=== PATIENT | female | born 1935 | race Caucasian/White ===

== ENCOUNTER 2017-05-23 23:57 | Inpatient (IN) | payer OTHER ==
[~2017-05-23] VITALS: Ht 157.5 cm; Wt 60.0 kg
[~2017-05-23 23:57] MED LIST: ASPCH81X PO; BUME1TAB PO; CARV6.252 PO; GLIP2.5T11 PO; HYDR100T12 PO; ISOS60TA PO; LORA10TA51 PO; SIMV20TA5 PO; TAMO20TA9 PO
[2017-05-24] VITALS (25 sets, daily range): BP systolic 135–165; BP diastolic 62–76; PULSE 72–85; TEMP 36.5–36.7; O2SAT 93–99; Ht 157.5 cm; Wt 60.0 kg
[2017-05-24] MEDS ORDERED: ALBUT/IPRATROP 3MG/0.5MG NEB 3 ML VIAL INH STA (00:05)
--- NOTE | 2017-05-24 00:10 | EMERGENCY ROOM VISIT NOTE ---
History Report prepared by Zac: Monisha Liz Under the Supervision of: Dr. Franky Lantigua M.D. First contact with patient: 00:00 Chief Complaint: SHORTNESS OF BREATH Stated Complaint: SHORTNESS OF BREATH History of Present Illness The patient is a 81 year old female who presents to the Emergency Room with complaints of sudden shortness of breath beginning this afternoon. She denies feeling tightness in her chest. The patient denies having chest pain, nausea, and vomiting. She also denies having leg swelling. The patient denies a history of COPD and CHF. The patient reports a history of breast cancer 5 years, but states that she does not have a port and is not on chemotherapy. Per her family , the patient had a heart attack 5 years and also had pneumonia then but has been getting pneumonia shots since. Source of History: patient, family Onset: this afternoon Position: other (global) Quality: other (shortness of breath ) Timing: other (sudden) Associated Symptoms: No chest pain, No nausea, No vomiting Note: also denies having leg swelling Review of Systems See HPI for pertinent positives & negatives. A total of 10 systems reviewed and were otherwise negative. Past Medical & Surgical Medical Problems: (1) Acute respiratory failure (2) Chronic Kidney Disease, Stage Iii (Moderate) (3) Congestive Heart Failure Nos (4) Diab Nia Wo Compl, Type Ii Or Unspec Type, Not Uncntrld (5) Diab W Renal Manifest, Type Ii Or Unspec Type, Not Uncntrld (6) Hyperlipidemia Nec/Nos (7) Hypertension Nos (8) Pneumonia Family History No pertinent family history stated. Social History Smoking Status: Never Smoker Marital Status: Housing Status: lives with significant other Current/Historical Medications Scheduled Aspirin (Aspirin Chewable), 81 MG PO DAILY B-Complex W/ C-Min-Fe & Folic (Ferrocite Plus), 324 MG PO DAILY Bumetanide (Bumex), 1 MG PO DAILY Calcitriol (Rocaltrol Cap), 0.25 MCG PO 3XWK Carvedilol (Coreg), 6.25 MG PO BID Cholecalciferol (Vitamin D3), 1,000 UNITS PO DAILY Glipizide (Glucotrol Xl), 2.5 MG PO DAILY Hydralazine Hcl (Apresoline), 100 MG PO TID Isosorbide Mononitrate (Imdur), 60 MG PO DAILY Simvastatin (Zocor), 20 MG PO HS Scheduled PRN Loratadine (Claritin), 10 MG PO DAILY PRN for ALLERGIC REACTION Allergies Coded Allergies: No Known Allergies (Verified , 08/28/07) Physical Exam Vital Signs Date Time Temp Pulse Resp B/P (MAP) Pulse Ox O2 Delivery O2 Flow Rate FiO2 05/24/17 03:06 82 24 93 Nasal Cannula 3.0 05/24/17 03:01 146/68 05/24/17 02:50 81 24 93 Nasal Cannula 3.0 05/24/17 02:31 145/65 05/24/17 02:20 80 18 93 Nasal Cannula 3.0 05/24/17 02:04 143/59 05/24/17 02:02 77 16 94 Nasal Cannula 3.0 05/24/17 02:01 143/59 05/24/17 01:50 79 22 92 Nasal Cannula 3.0 05/24/17 01:31 139/59 05/24/17 01:20 76 20 91 Nasal Cannula 3.0 05/24/17 01:15 77 24 90 Nasal Cannula 3.0 05/24/17 01:02 153/72 05/24/17 00:47 93 Nasal Cannula 3.0 05/24/17 00:47 93 Nasal Cannula 3.0 05/24/17 00:45 76 91 Nasal Cannula 3.0 05/24/17 00:37 93 Nasal Cannula 3.0 05/24/17 00:35 89 Room Air 05/23/17 23:57 36.4 80 21 159/76 93 Room Air 05/23/17 23:57 93 Room Air Physical Exam GENERAL: Patient is unwell appearing and in moderate distress. HEENT: No acute trauma, normocephalic atraumatic, mucous membranes moist, no nasal congestion, no scleral icterus. Cataract to right eye. NECK: No stridor, no adenopathy, no meningismus, trachea is midline. LUNGS: Tight, coarse breath sounds with rhonchi throughout. Mild wheezing. Dyspneic. Mildly tachypneic. HEART: Regular rate and rhythm. No murmurs, rubs, gallops appreciated. ABDOMEN: Soft, nontender, bowel sounds positive, no masses appreciated, no peritonitis. BACK: No midline tenderness, no CVA tenderness EXTREMITIES: Normal motion all extremities, no cyanosis, no edema. NEUROLOGIC: Alert and oriented, no acute motor or sensory deficits, no focal weakness, cranial nerves grossly intact. SKIN: No rash, no jaundice, no diaphoresis. Medical Decision & Procedures ER Provider Diagnostic Interpretation: X ray results are stated below per my interpretation and the radiologist's interpretation. Chest X-Ray 1 view: Diffuse patchy infiltration throughout with a large infiltrate over the right upper lung fernandez. No effusion. Normal cardiac size. Laboratory Results Test 05/24/17 01:10 05/24/17 01:20 05/24/17 02:03 05/24/17 03:00 Pro-B-Type Natriuretic Peptide > 17928 pg/ml (0-1800) Beta-Hydroxybutyric Acid 1.42 mg/dL (0.2-2.81) Bedside Lactic Acid Venous 1.53 mmol/L (0.90-1.70) Arterial Blood pH 7.42 (7.35-7.45) Arterial Blood Partial Pressure CO2 37 mmHg (35-46) Arterial Blood Partial Pressure O2 83 mm/Hg (80-95) Arterial Blood HCO3 23 mmol/L (19-24) Arterial Blood Oxygen Saturation 93.7 % (90-95) Arterial Blood Base Excess -1.0 mEq/L (-9-1.8) Arterial Blood Gas Delivery 3.5 L Ezekiel Test POS (POS) Urine Color YELLOW Urine Appearance CLOUDY (CLEAR) Urine pH 5.0 (4.5-7.5) Urine Specific [place] 1.025 (1.000-1.030) Urine Protein 1+ (NEG) Urine Glucose (UA) NEG (NEG) Urine Ketones NEG (NEG) Urine Occult Blood NEG (NEG) Urine Nitrite NEG (NEG) Urine Bilirubin NEG (NEG) Urine Urobilinogen NEG (NEG) Urine Leukocyte Esterase SMALL (NEG) Urine Osmolality 394 mOms/kg (500-800) Urine Random Sodium 11 mEq/L Laboratory results as reviewed by me. Medications Administered Medications (Trade) Dose Ordered Sig/Orestes Route Start Time Stop Time Status Last Admin Dose Admin Albuterol/ Ipratropium (Duoneb) 3 ml NOW STAT INH 05/24/17 00:05 05/24/17 00:07 DC 05/24/17 00:44 3 ML Piperacillin Sod/ Tazobactam Sod (Zosyn Iv) 4.5 gm NOW STAT IV 05/24/17 00:21 05/24/17 00:22 DC 05/24/17 01:07 4.5 GM Levofloxacin (Levaquin / D5W) 750 mg NOW ONCE IV 05/24/17 00:30 05/24/17 00:31 DC 05/24/17 01:28 750 MG Methylprednisolone Sodium Succinate (Solu-Medrol IV) 125 mg NOW STAT IV 05/24/17 01:34 05/24/17 01:35 DC 05/24/17 01:49 125 MG Albuterol/ Ipratropium (Duoneb) 12 ml ONE ONCE INH 05/24/17 02:00 05/24/17 02:01 DC 05/24/17 02:00 12 ML Insulin Human Regular (novoLIN-R U-100 PER UNIT) 6 units NOW STAT SC 05/24/17 02:03 05/24/17 02:04 DC 05/24/17 02:11 6 UNITS Insulin Glargine (Lantus Solostar Pen) 5 units BID SC 05/24/17 03:00 05/24/17 12:15 DC 05/24/17 07:31 5 UNITS Acetaminophen (Tylenol Tab) 650 mg TODAY@0300 PO 05/24/17 03:00 05/24/17 08:00 DC 05/24/17 06:12 650 MG ECG Indication: SOB/dyspnea Rate (beats per minute): 76 Rhythm: sinus rhythm Findings: LBBB (similar to ECG in 2014), no acute ischemic change Change: no significant change (from 2014) ED Course 0001: The patient was evaluated in room A10. A complete history and physical exam was performed. 0005: Ordered DuoNeb 3 ml INH. 0021: Ordered Zosyn Iv 4.5 gm IV. 0028:I checked on the patient and she is breathing better on the DuoNeb. The patient reports a history of smoking, but does not smoke anymore. I informed the patient and her family of the chest X-ray findings and that I plan to admit her. 0030: Ordered Levofloxacin 750 mg IV. 0134: Ordered Methylprednisolone Sodium Succinate 125 mg IV. 0150: I checked on the patient and she is still having continued wheezing. 0200: Ordered Duoneb 12 ml INH. 0203: Ordered Insulin Human Regular 6 units SC. 0207: Discussed the patient's case with Dr. Og. The patient will be evaluated for further treatment and disposition. 0210: Upon reevaluation, the patient is resting. Discussed results and treatment plan with the patient. She verbalized understanding and agreement with the treatment plan. The patient will be evaluated for further management. 0250: I checked on the patient. She is comfortable on the DuoNeb right now. Medical Decision Differential: Infectious, Reactive Airway Disease, Pneumonia, Pneumothorax, COPD , CHF, ACS, Pulmonary Embolism, MSK, GI, Dissection, amongst other etiologies entertained. 81 yr old female arrives acutely ill with respiratory distress. Mild hypoxia with very poor lung exam. History of smoking thus with some wheezing went ahead with duoneb which increased wheezing and opened up lungs some. Thus hour long neb with IV steroids started. CXR with large infiltrate RUL as well as what appears to be either Pulm Edema vs diffuse infiltrative disease. Given broad spectrum for pneumonia. CXR findings very much appear to be consistent with edema/chf, as does her elevated BNP, but with acute renal failure, no leg swelling/jvd I feel holding on some IV lasix reasonable. After 2 hours duoneb an ABG obtained which was essentially normal thus I feel that putting on bipap at this time not yet indicated. She is doing quite well with continuous neb and breathing much more comfortably. Labs remarkable for elevated BG for which subq insulin given. Moderate hyponatremia of likely infectious, fluid overload and somewhat bsg elevation as cause. Clearly giving IV fluids for this would compound issues further. No clear evidence this is ACS as ekg without STEMI and moderately elevated trop seems to be her baseline and would go with renal failure. She will be brought in to hospitalist service for further treatment and evaluation. Medication Reconcilliation Current Medication List: was personally reviewed by ok Blood Pressure Screening Patient's blood pressure: Elevated blood pressure will be monitored by the hospitalist Consults Time Called: 0140 Consulting Physician: Dr. Fay Returned Call: 020 Discussed the patient's case. The patient will be evaluated for further treatment and disposition. Impression Primary Impression: Pneumonia Additional Impressions: Respiratory distress Hyponatremia Hyperglycemia Renal failure Critical Care I have personally spent greater than 35 minutes of critical care time in the direct management of this patient. This was a life/limb threatening event. This includes time spent evaluating patient, direct bedside care, chart review, placing orders, interpretation of diagnostic studies, discussion with consultants, patient, and family members, as well as other required patient management activities. This 35 minutes is in excess of all separately billable procedures. Scribe Attestation The scribe's documentation has been prepared under my direction and personally reviewed by me in its entirety. I confirm that the note above accurately reflects all work, treatment, procedures, and medical decision making performed by me. Departure Information Dispostion Being Evaluated By Hospitalist Los Tamayo M.D. (PCP) Patient Instructions My [facility] Problem Qualifiers
[2017-05-24] MEDS ORDERED: PIPERACILLIN/TAZOBACTAM 4.5 GM/100ML D5W IV STA (00:21)
[2017-05-24] MEDS ORDERED: LEVAQUIN 750MG / 150ML D5W IV ONE (00:30)
[2017-05-24] MEDS ORDERED: B COTAB PO (01:19)
[2017-05-24] MEDS ORDERED: CHOL1000 PO (01:21)
[2017-05-24] MEDS ORDERED: GLIP1TAB60 PO (01:22)
[2017-05-24] MEDS ORDERED: CALC0.2510 PO (01:25)
[2017-05-24 01:34] LABS: HEMATOCRIT 22.6 % (37-47); MEAN CELL VOLUME 93.8 fL (80-100); MEAN CORPUSCULAR HGB CONC 34.1 g/dl (32-36); MEAN PLATELET VOLUME 10.8 fL (7.4-10.4); PLATELET COUNT 238 K/uL (130-400); RED BLOOD COUNT 2.41 M/uL (4.2-5.4); WHITE BLOOD COUNT 18.46 K/uL (4.8-10.8)
[2017-05-24] MEDS ORDERED: METHYLPREDNISOLONE 125 MG VIAL IV STA (01:34)
[2017-05-24 01:54] LABS: BLOOD UREA NITROGEN 51 mg/dl (7-18); BUN/CREATININE RATIO 20.9 (10-20); CALCIUM 8.3 mg/dl (8.5-10.1); CARBON DIOXIDE 23 mmol/L (21-32); CHLORIDE 92 mmol/L (98-107); CREATININE 2.43 mg/dl (0.60-1.20); GLUCOSE 361 mg/dl (70-99); SODIUM 126 mmol/L (136-145)
[2017-05-24 01:59] LABS: CKMB/CK RATIO 5.7 (0-3.0)
[2017-05-24] MEDS ORDERED: ALBUT/IPRATROP 3MG/0.5MG NEB 3 ML VIAL INH ONE (02:00)
[2017-05-24] MEDS ORDERED: NovoLIN-R INSULIN PER UNIT CHARGE SC STA (02:03)
[2017-05-24 02:06] LABS: BETA-HYDROXYBUTYRATE 1.42 mg/dL (0.2-2.81)
[2017-05-24 02:09] LABS: BASO % 0.1 %; BASO ABS # 0.01 K/uL (0-0.2); COMPLETE YES; IG% 0.7 %; LYMPH % 2.4 %; LYMPH ABS # 0.44 K/uL (1.2-3.4); MONO % 3.4 %; NEUT % 93.4 %
[2017-05-24 02:34] LABS: ARTERIAL BLD GAS O2 SATURATION 93.7 % (90-95); ARTERIAL BLOOD GAS HCO3 23 mmol/L (19-24); ARTERIAL BLOOD GAS PO2 83 mm/Hg (80-95); ARTERIAL BLOOD GAS pH 7.42 (7.35-7.45)
[2017-05-24 02:35] LABS: ALLEN TEST POS (POS); O2 ADMINISTRATION 3.5 L
[2017-05-24] MEDS ORDERED: ALUMINUM/MAGNESIUM/SIMETH (MAALOX MAX) 30 ML UDC PO PRN (03:00)
[2017-05-24] MEDS ORDERED: ACETAMINOPHEN 325 MG TAB PO SCH (03:00)
[2017-05-24] MEDS ORDERED: MAGNESIUM HYDROXIDE SUSP 30 ML UDC PO PRN (03:00)
[2017-05-24] MEDS ORDERED: NITROGLYCERIN 0.4 MG SL PER TAB CHARGE SL PRN (03:00)
[2017-05-24] MEDS ORDERED: ONDANSETRON INJ 2 MG/ML 2 ML VIAL IV PRN (03:00)
[2017-05-24] MEDS ORDERED: LORATADINE 10 MG TAB PO PRN (03:00)
[2017-05-24] MEDS ORDERED: CEFEPIME IV 2,000 MG in DEXTROSE 5% 100ML 100 ML IV SCH (03:00)
[2017-05-24] MEDS ORDERED: ACETAMINOPHEN 325 MG TAB PO PRN (03:00)
[2017-05-24] MEDS ORDERED: ALBUT/IPRATROP 3MG/0.5MG NEB 3 ML VIAL INH PRN (03:15)
[2017-05-24] MEDS ORDERED: GLUCAGON FOR INJ 1 MG VIAL SQ PRN (03:45)
[2017-05-24] MEDS ORDERED: DEXTROSE 50% 50 ML SYR IV PRN (03:45)
[2017-05-24] MEDS ORDERED: GLUCOSE 40% GEL 15 GM TUBE PO PRN (03:45)
[2017-05-24] MEDS ORDERED: GLUCOSE 10 TABS/TUBE PO PRN (03:45)
[2017-05-24 04:02] LABS: URINE APPEARANCE CLOUDY (CLEAR); URINE BILIRUBIN NEG (NEG); URINE NITRITE NEG (NEG); URINE SPECIFIC GRAVITY 1.025 (1.000-1.030); UROBILINOGEN NEG (NEG)
[2017-05-24 04:04] LABS: MANUAL MICROSCOPIC REQUIRED? NO; REVIEW REQ? NO; URINE COLOR YELLOW; ZZUR CULT IF INDIC CLEAN CATCH YES
[2017-05-24] MEDS ORDERED: CEFEPIME CONSULT ACTIVE PRN ×2 (04:30)
[2017-05-24 04:56] LABS: FERRITIN 1418.4 ng/ml (8.0-388.0)
[2017-05-24] MEDS ORDERED: LEVOFLOXACIN CONSULT ACTIVE PRN (05:00)
[2017-05-24 05:01] LABS: INFLUENZA A PCR Neg for Influ A (NEG); INFLUENZA B PCR Neg for Influ B (NEG)
[2017-05-24] MEDS: INSULIN GLARGINE SOLOSTAR 100 UNITS/ML 3 ML PEN SC SCH ×3 (05:24→20:34)
[2017-05-24] MEDS: CEFEPIME IV 2,000 MG in SYRINGE 7.5 ML IV SCH (05:28)
[2017-05-24] MEDS ORDERED: HEPARIN SOD 5000 UNIT/0.5 ML CARP SQ SCH (06:00)
[2017-05-24 06:23] LABS: ESTIMATED AVERAGE GLUCOSE 123 mg/dl; HA1C FLAG Normal (Normal)
[2017-05-24 06:25] LABS: HEMATOCRIT 22.3 % (37-47); MEAN CELL VOLUME 92.5 fL (80-100); MEAN CORPUSCULAR HEMOGLOBIN 31.1 pg (25-34); MEAN CORPUSCULAR HGB CONC 33.6 g/dl (32-36); MEAN PLATELET VOLUME 10.5 fL (7.4-10.4); PLATELET COUNT 233 K/uL (130-400); RED BLOOD COUNT 2.41 M/uL (4.2-5.4); WHITE BLOOD COUNT 16.36 K/uL (4.8-10.8)
--- NOTE | 2017-05-24 06:28 | HISTORY & PHYSICAL EXAMINATION ---
DATE OF ADMISSION: 05/24/2017 CHIEF COMPLAINT: Shortness of breath. HISTORY OF PRESENT ILLNESS: This is a 81-year-old female with past medical history significant for hyperlipidemia, nonischemic cardiomyopathy, peripheral artery disease, breast cancer, type 2 diabetes, anemia of chronic kidney disease, chronic kidney disease stage IV, hypertension, right eye blindness, was brought in with acute shortness of breath. The patient lives with her daughter. She was having some cough since yesterday bringing up some yellowish white phlegm, but today she complained of shortness of breath that progressively worsened later in night. She complained that she could not breathe and her chest hurts while breathing so she was brought into the hospital. In the ER, she required 3 litres of oxygen to keep her saturation above 90, afebrile, blood pressure is stable. Chest x-ray showed diffuse congestion versus infiltrate. The patient is very hard to hear. The patient lives with daughter. As per daughter, the patient was otherwise doing okay. She is ambulates in the house fine and she can climb the steps and down without any difficulty. No recent fever or chills. No complaints of headaches or blurred vision. No nausea, no vomiting, no abdominal pain. She had 1 episode of diarrhea on Sunday. Appetite is okay. Did not eat much today. No swelling in the legs. Currently, seems somewhat comfortable. ALLERGIES: No known drug allergies. PAST MEDICAL HISTORY: As mentioned above. PAST SURGICAL HISTORY: Left breast biopsy, cataract surgery, colonoscopy with biopsy, cystoscopy, left partial mastectomy. MEDICATIONS: Currently the patient is on Coreg 6.25 one mg p.o. b.i.d., Percocet 325 mg p.o. daily, hydralazine 100 mg p.o. t.i.d., lovastatin 20 mg p.o. daily, vitamin D 1000 units p.o. daily, glipizide XL 2.5 mg p.o. daily, Bumex 1 mg p.o. daily, calcitriol 0.5 mg p.o. daily on Sunday, Sunday and Sunday, Imdur 60 mg p.o. daily, aspirin 81 mg p.o. daily. FAMILY HISTORY: Significant for mother had cancer. Father had heart disorder. SOCIAL HISTORY: Former smoker, quit in 2006. Prior to that smoked for 50 years. No alcohol use. No drug use. Currently lives with her daughter. REVIEW OF SYMPTOMS: As per HPI. Rest of review of systems negative. PHYSICAL EXAMINATION: GENERAL: The patient is old and frail, somewhat mild respiratory distress. VITAL SIGNS: Temperature 36.4, pulse 77, respiratory rate 24, oxygen 92% on 3 liters. HEENT: No pallor, no icterus. Right eye blind. NECK: No JVD, no neck masses, no carotid bruits. CARDIOVASCULAR: S1, S2 heard. Regular rate and rhythm. No murmurs appreciated. RESPIRATORY SYSTEM: Bilateral rhonchi heard and bilateral wheezing heard. ABDOMEN: Soft, bowel sounds present. Nontender. No distention. No guarding or rigidity. CENTRAL NERVOUS SYSTEM: Cranial nerves II-XII grossly intact. Nonfocal. EXTREMITIES: Trace pedal edema present. No erythema seen. LABORATORIES: Sodium 126, potassium 4, chloride 92, bicarbonate 23, BUN 51, creatinine 2.4, serum glucose 361, point of care lactic acid 1.5, calcium 8.3, total creatinine kinase 98. Troponin was 0.17. BNP greater than 35,000. Beta hydroxybutyrate acid 1.42. WBC 18.4, hemoglobin 7.7, hematocrit 38. Blood gas pH 7.48, pCO2 37, pO2 83, bicarbonate 23, oxygen 93% on 3.5 liters. Chest x-ray bilateral diffuse infiltrates EKG: Sinus rhythm with rate of 60 with left bundle branch block. No significant change from previous EKG. ASSESSMENT AND PLAN: This is a 81-year-old female who presents with acute shortness of breath. 1. Acute respiratory failure with leukocytosis, cough and bilateral infiltrates on chest x-ray, most likely secondary to pneumonia, could be also underlying congestive heart failure. We will place him on IV Levaquin and IV cefepime. Will follow the cultures. We will follow the sputum sample. We will follow MRSA swab. We follow the CT scan of the chest and if any concern, we will consult pulmonary for a bronchoscopy. Close monitor in tele floor. [facility] 2. Possible acute congestive heart failure. The patient has history of CHF, in November 2011 she had hypoxic respiratory failure requiring intubation. At that time, EF was only 15% but again repeat echo in October 2015 showed a normal EF with grade 1 diastolic dysfunction. Since the chest x-ray shows possible underlying congestive heart failure, we will get a CT scan to get a clear picture. Hold the home Bumex for renal failure, possible sepsis, possible pneumonia. We will follow echocardiogram and cardiology consult for further recommendations. 3. Mild elevation of troponin, most likely secondary to acute renal failure. The patient denies any chest pain. We will follow the echocardiogram and serial cardiac enzymes. 4. Acute renal failure and chronic kidney disease stage IV. Baseline creatinine around 2, presents with creatinine of 2.4. Hold the Bumex. Follow the labs in a.m. Consult nephrology for further recommendations for any diuretics. 5. Hyponatremia with sodium of 126. Checking the sodium osmolality, urine osmolality and urine sodium, repeat the labs, holding the diuretics and fluids. Further recommendation as per nephrology and based on repeat labs. 6. Diabetes with hyperglycemia with sugar of 361. Got 6 units of IV regular insulin in the ER. Follow HbA1c level. Hold the glipizide. To start on Lantus 5 units b.i.d. and insulin sliding scale. We will closely monitor the blood sugars. 7. Acute on chronic anemia of chronic kidney disease. Hemoglobin baseline between 8 to 9. Presents with hemoglobin of 7.7. N signs of bleeding We will give 2 units of PRBC slowly, follow the iron studies and vitamin B12 and folic acid studies and stool for Hemoccult. 10. Hyperlipidemia. Continue statin. 11. Hypertension. Continue Coreg, hydralazine and Imdur. We will monitor the blood pressure. 12. Peripheral vascular disease, continue aspirin. 13. Deep venous thrombosis prophylaxis. Heparin subQ. DISPOSITION: Admit to tele floor. Expect to discharge home and follow with his family doctor. PT and OT prior to discharge. Social Service to help with discharge planning. Level 1 full code. MTDD
[2017-05-24 06:42] LABS: INR 1.2 (0.9-1.1); PROTHROMBIN TIME (PATIENT) 12.8 SECONDS (9.0-12.0)
[2017-05-24 06:55] LABS: BUN/CREATININE RATIO 22.2 (10-20); CALCIUM 8.4 mg/dl (8.5-10.1); CREATININE 2.25 mg/dl (0.60-1.20); MAGNESIUM 2.6 mg/dl (1.8-2.4); POTASSIUM 3.9 mmol/L (3.5-5.1)
--- NOTE | 2017-05-24 07:12 | DIAGNOSTIC IMAGING REPORT ---
CHEST ONE VIEW PORTABLE CLINICAL HISTORY: Shortness of breath. COMPARISON STUDY: Chest radiograph November 28, 2011. FINDINGS: There is no pneumothorax. There is a suspected small left pleural effusion with possible trace right pleural effusion. Moderate cardiomegaly is noted. There is diffuse interstitial thickening with dense bilateral upper lung airspace opacities which are relatively symmetric. There is also mild left lower lung airspace opacity. IMPRESSION: 1. Interstitial thickening with dense relatively symmetric bilateral upper lung airspace opacities. The findings favor alveolar pulmonary edema. However, bilateral pneumonia could appear similar. Radiographic follow up is recommended. 2. Suspected small left and trace right pleural effusions. Electronically signed by: Elias Ferrell M.D. 05/24/2017 7:10 AM Dictated Date/Time: 05/24/2017 7:06 AM
[2017-05-24 07:24] LABS: BASO % 0.1 %; BASO ABS # 0.01 K/uL (0-0.2); COMPLETE YES; IG% 0.6 %; LYMPH % 2.1 %; LYMPH ABS # 0.35 K/uL (1.2-3.4); MONO % 2.2 %
[2017-05-24] MEDS: CARVEDILOL 6.25 MG TAB PO SCH ×2 (07:28→20:30)
[2017-05-24] MEDS: CHOLECALCIFEROL 1000 INTER.UNIT TAB PO SCH (07:28)
[2017-05-24] MEDS: ISOSORBIDE MONONITRATE 60 MG TABCR PO SCH (07:28)
[2017-05-24] MEDS: INSULIN ASPART 100 UNITS/ML 3 ML PEN SC SCH ×4 (07:30→20:34)
[2017-05-24] MEDS ORDERED: LEVALBUTEROL/IPRATROPIUM NEB INH SCH (08:30)
[2017-05-24] MEDS ORDERED: NURSING VERBAL MED ORDER ONE ×2 (08:30→15:15)
--- NOTE | 2017-05-24 08:42 | Progress Note ---
Medicine Progress Note Date & Time of Visit: May 24, 2017 at 08:31. Subjective resting in bed, not in distress, appears weak but alert, oriented states her breathing has improved compared to yesterday still has coarse cough, with yellow sputum denies chest pain, dizziness, palpitations, headache denies other symptoms Objective Last 8 Hrs Date Time Temp Pulse Resp B/P (MAP) Pulse Ox O2 Delivery O2 Flow Rate FiO2 05/24/17 08:22 36.6 78 18 148/64 93 4.0 05/24/17 08:16 36.7 79 28 153/65 (94) 99 5.0 05/24/17 08:06 36.6 79 18 149/63 93 4.0 05/24/17 07:24 36.7 81 20 136/62 98 4.0 05/24/17 06:45 36.7 78 20 162/68 97 5.0 05/24/17 06:30 36.7 77 22 159/71 97 5.0 05/24/17 06:23 36.7 82 22 163/66 96 5.0 05/24/17 04:23 36.7 85 18 148/67 95 Mask 4.0 05/24/17 03:36 80 26 93 Nasal Cannula 3.0 05/24/17 03:31 155/77 05/24/17 03:06 82 24 93 Nasal Cannula 3.0 05/24/17 03:01 146/68 05/24/17 02:50 81 24 93 Nasal Cannula 3.0 05/24/17 02:31 145/65 05/24/17 02:20 80 18 93 Nasal Cannula 3.0 05/24/17 02:04 143/59 05/24/17 02:02 77 16 94 Nasal Cannula 3.0 05/24/17 02:01 143/59 05/24/17 01:50 79 22 92 Nasal Cannula 3.0 05/24/17 01:31 139/59 05/24/17 01:20 76 20 91 Nasal Cannula 3.0 05/24/17 01:15 77 24 90 Nasal Cannula 3.0 05/24/17 01:02 153/72 05/24/17 00:47 93 Nasal Cannula 3.0 05/24/17 00:47 93 Nasal Cannula 3.0 05/24/17 00:45 76 91 Nasal Cannula 3.0 05/24/17 00:37 93 Nasal Cannula 3.0 05/24/17 00:35 89 Room Air Physical Exam: General- oriented x 3, not in distress, speaks in sentences with no effort Head- atraumatic Eyes- PERRL, EOMI, anicteric ENT- oropharynx clear Neck- supple, (+) JVD, no adenopathy, no thyromegaly Lungs- (+) crackles bilaterally Heart- regular rhythm; no murmur, normal rate Abdomen- normal bowel sounds, soft, nontender Extremities- no pretibial edema, no calf tenderness; peripheral pulses intact Neuro- alert, oriented x 3; PERRL, EOMI; no facial palsy; no dysarthria; motor 5 /5 bilaterally; sensation 100%, no other gross focal deficits Skin- warm & dry Laboratory Results: Last 24 Hours Test 05/24/17 01:10 05/24/17 01:20 05/24/17 02:03 05/24/17 03:00 White Blood Count 18.46 K/uL Red Blood Count 2.41 M/uL Hemoglobin 7.7 g/dL Hematocrit 22.6 % Mean Corpuscular Volume 93.8 fL Mean Corpuscular Hemoglobin 32.0 pg Mean Corpuscular Hemoglobin Concent 34.1 g/dl Platelet Count 238 K/uL Mean Platelet Volume 10.8 fL Neutrophils (%) (Auto) 93.4 % Lymphocytes (%) (Auto) 2.4 % Monocytes (%) (Auto) 3.4 % Eosinophils (%) (Auto) 0.0 % Basophils (%) (Auto) 0.1 % Neutrophils # (Auto) 17.25 K/uL Lymphocytes # (Auto) 0.44 K/uL Monocytes # (Auto) 0.63 K/uL Eosinophils # (Auto) 0.00 K/uL Basophils # (Auto) 0.01 K/uL RDW Standard Deviation 42.3 fL RDW Coefficient of Variation 12.3 % Immature Granulocyte % (Auto) 0.7 % Immature Granulocyte # (Auto) 0.13 K/uL Red Blood Cell Morphology Unremarkable Sodium Level 126 mmol/L Potassium Level 4.0 mmol/L Chloride Level 92 mmol/L Carbon Dioxide Level 23 mmol/L Anion Gap 11.0 mmol/L Blood Urea Nitrogen 51 mg/dl Creatinine 2.43 mg/dl Est Creatinine Clear Calc Drug Dose 16.5 ml/min Estimated GFR () 21.2 Estimated GFR (Non- 18.3 BUN/Creatinine Ratio 20.9 Random Glucose 361 mg/dl Calcium Level 8.3 mg/dl Total Creatine Kinase 98 U/L Creatine Kinase MB 5.6 ng/ml Creatine Kinase MB Ratio 5.7 Troponin I 0.172 ng/ml Pro-B-Type Natriuretic Peptide > 57213 pg/ml Beta-Hydroxybutyric Acid 1.42 mg/dL Bedside Lactic Acid Venous 1.53 mmol/L Arterial Blood pH 7.42 Arterial Blood Partial Pressure CO2 37 mmHg Arterial Blood Partial Pressure O2 83 mm/Hg Arterial Blood HCO3 23 mmol/L Arterial Blood Oxygen Saturation 93.7 % Arterial Blood Base Excess -1.0 mEq/L Arterial Blood Gas Delivery 3.5 L Ezekiel Test POS Urine Color YELLOW Urine Appearance CLOUDY Urine pH 5.0 Urine Specific [place] 1.025 Urine Protein 1+ Urine Glucose (UA) NEG Urine Ketones NEG Urine Occult Blood NEG Urine Nitrite NEG Urine Bilirubin NEG Urine Urobilinogen NEG Urine Leukocyte Esterase SMALL Urine Osmolality 394 mOms/kg Urine Random Sodium 11 mEq/L Test 05/24/17 03:40 05/24/17 03:41 05/24/17 04:19 05/24/17 05:52 Influenza Type A (RT-PCR) Neg for Influ A Influenza Type B (RT-PCR) Neg for Influ B Bedside Glucose 361 mg/dl Estimated Average Glucose 123 mg/dl Hemoglobin A1c 5.9 % Osmolality 289 mOsm/kg Iron Level 32 mcg/dl Total Iron Binding Capacity 151 mcg/dl Transferrin 117 mg/dl Transferrin % Saturation 20 % Ferritin 1418.4 ng/ml White Blood Count 16.36 K/uL Red Blood Count 2.41 M/uL Hemoglobin 7.5 g/dL Hematocrit 22.3 % Mean Corpuscular Volume 92.5 fL Mean Corpuscular Hemoglobin 31.1 pg Mean Corpuscular Hemoglobin Concent 33.6 g/dl Platelet Count 233 K/uL Mean Platelet Volume 10.5 fL Neutrophils (%) (Auto) 95.0 % Lymphocytes (%) (Auto) 2.1 % Monocytes (%) (Auto) 2.2 % Eosinophils (%) (Auto) 0.0 % Basophils (%) (Auto) 0.1 % Neutrophils # (Auto) 15.55 K/uL Lymphocytes # (Auto) 0.35 K/uL Monocytes # (Auto) 0.36 K/uL Eosinophils # (Auto) 0.00 K/uL Basophils # (Auto) 0.01 K/uL RDW Standard Deviation 42.1 fL RDW Coefficient of Variation 12.3 % Immature Granulocyte % (Auto) 0.6 % Immature Granulocyte # (Auto) 0.09 K/uL Red Blood Cell Morphology Unremarkable Prothrombin Time 12.8 SECONDS Prothromb Time International Ratio 1.2 Sodium Level 127 mmol/L Potassium Level 3.9 mmol/L Chloride Level 94 mmol/L Carbon Dioxide Level 23 mmol/L Anion Gap 10.0 mmol/L Blood Urea Nitrogen 50 mg/dl Creatinine 2.25 mg/dl Est Creatinine Clear Calc Drug Dose 17.4 ml/min Estimated GFR () 23.3 Estimated GFR (Non- 20.1 BUN/Creatinine Ratio 22.2 Random Glucose 296 mg/dl Calcium Level 8.4 mg/dl Magnesium Level 2.6 mg/dl Test 05/24/17 06:44 Bedside Glucose 298 mg/dl Date/Time Source Procedure Growth Status 05/24/17 00:35 Blood Blood Culture Pending Received 05/24/17 00:25 Blood Blood Culture Pending Received 05/24/17 03:00 Urine , Clean Catch Urine Culture Pending Received Assessment & Plan ASSESSMENT AND PLAN: This is a 81-year-old female who presents with acute shortness of breath. ACUTE HYPOXIC RESPIRATORY FAILURE SECONDARY TO: ACUTE ON CHRONIC CHF EXACERBATION DIASTOLIC TYPE, HISTORY OF NONISCHEMIC CARDIOMYOPATHY - echo pending - Lasix 20mg IV given, has acute renal failure on CKD 4, will be cautious with diuresis Cardio and Nephro consulted POSSIBLE COMMUNITY ACQUIRED PNEUMONIA - cultures pending CT chest pending - on Cefepime + Levaquin IV Day 1 Nebs added Mild elevation of troponin, most likely secondary to acute renal failure. - no chest pain - ff up cardiac markers, echo Acute renal failure and chronic kidney disease stage IV. Baseline creatinine around 2, presents with creatinine of 2.4. Hold the Bumex. - Lasix 20mg IV given, has acute renal failure on CKD 4, will be cautious with diuresis Hyponatremia with sodium of 126. Checking the sodium osmolality, urine osmolality and urine sodium, repeat the labs - monitor Na Nephro consulted Acute on chronic anemia of chronic kidney disease. Hemoglobin baseline between 8 to 9. Presents with hemoglobin of 7.7. - 2 units pRBC ordered Fe low, will order Iron supplement Diabetes with hyperglycemia with sugar of 361. Got 6 units of IV regular insulin in the ER. Follow HbA1c level. Hold the glipizide. To start on Lantus 5 units b.i.d. and insulin sliding scale. Hypertension. Continue Coreg, hydralazine and Imdur. We will monitor the blood pressure. Peripheral vascular disease - hold ASA until GI bleed ruled out Deep venous thrombosis prophylaxis. - hold heparin until bleeding ruled out with FOBT DISPOSITION: pending Current Inpatient Medications: Current Inpatient Medications Medications (Trade) Dose Ordered Sig/Orestes Route Start Time Stop Time Status Last Admin Dose Admin Heparin Sodium (Porcine) (Heparin Sq 5000 Unit/0.5ml) 5,000 unit Q8 SQ 05/24/17 06:00 06/23/17 05:59 05/24/17 07:07 5,000 UNIT Acetaminophen (Tylenol Tab) 650 mg Q4H PRN PO 05/24/17 03:00 06/23/17 02:59 Al Hydrox/Mg Hydrox/Simethicone (Maalox Max Susp) 15 ml Q4H PRN PO 05/24/17 03:00 06/23/17 02:59 Magnesium Hydroxide (Milk Of Magnesia Susp) 30 ml Q12H PRN PO 05/24/17 03:00 06/23/17 02:59 Ondansetron HCl (Zofran Inj) 4 mg Q6H PRN IV 05/24/17 03:00 06/23/17 02:59 Nitroglycerin (Nitrostat Tab) 0.4 mg UD PRN SL 05/24/17 03:00 06/23/17 02:59 Insulin Glargine (Lantus Solostar Pen) 5 units BID SC 05/24/17 03:00 06/23/17 02:59 05/24/17 07:31 5 UNITS Insulin Aspart (novoLOG ASPART) SLIDING SCALE G... ACHS SC 05/24/17 07:00 06/23/17 06:59 05/24/17 07:30 4 UNITS Aspirin (Aspirin Chew) 81 mg DAILY PO 05/24/17 09:00 06/23/17 08:59 05/24/17 07:28 81 MG Calcitriol (Rocaltrol Cap) 0.25 mcg MoWeFr@0900 PO 05/25/17 09:00 06/24/17 08:59 Carvedilol (Coreg Tab) 6.25 mg BID PO 05/24/17 09:00 06/23/17 08:59 05/24/17 07:28 6.25 MG Cholecalciferol (Vitamin D Tab) 1,000 inter.unit DAILY PO 05/24/17 09:00 06/23/17 08:59 05/24/17 07:28 1,000 INTER.UNIT Hydralazine HCl (Apresoline Tab) 100 mg TID PO 05/24/17 09:00 06/23/17 08:59 05/24/17 07:29 100 MG Isosorbide Mononitrate (Imdur Ext Rel Tab) 60 mg DAILY PO 05/24/17 09:00 06/23/17 08:59 05/24/17 07:28 60 MG Loratadine (Claritin Tab) 10 mg DAILY PRN PO 05/24/17 03:00 06/23/17 02:59 Simvastatin (Zocor Tab) 20 mg HS PO 05/24/17 21:00 06/23/17 20:59 Miscellaneous Information (Order Awaiting Action) 1 ea QS N/A 05/24/17 08:00 06/23/17 07:59 Levofloxacin 500 mg/Prmx 150 ml @ 100 mls/hr Q2D@0100 IV 05/26/17 01:00 05/31/17 23:59 Albuterol/ Ipratropium (Duoneb) 3 ml Q4R PRN INH 05/24/17 03:15 06/23/17 03:14 Glucose (Glucose 40% Gel) 15-30 GRAMS 15 GRAMS... UD PRN PO 05/24/17 03:45 06/23/17 03:44 Glucose (Glucose Chew Tab) 4-8 Tablets 4 Tabl... UD PRN PO 05/24/17 03:45 06/23/17 03:44 Dextrose (Dextrose 50% 50ML Syringe) 25-50ML OF 50% DW IV FOR... UD PRN IV 05/24/17 03:45 06/23/17 03:44 Glucagon (Glucagon Inj) 1 mg UD PRN SQ 05/24/17 03:45 06/23/17 03:44 Cefepime HCl 2000 mg/Syringe 20 ml @ 5 mls/min DAILY@0500 IV 05/24/17 05:00 05/31/17 04:59 05/24/17 05:28 5 MLS/MIN Cefepime HCl (Consult) 1 ea UD PRN N/A 05/24/17 04:30 06/23/17 04:29 Levofloxacin (Consult) 1 ea UD PRN N/A 05/24/17 05:00 06/23/17 04:59 Miscellaneous Information (Nursing Verbal Med Order) 1 ea ONE ONCE N/A 05/24/17 08:30 05/24/17 08:31 UNV
[2017-05-24] MEDS ORDERED: PHARMACY GLYCEMIC MGMT CONSULT PRN (08:44)
[2017-05-24] MEDS ORDERED: FUROSEMIDE INJ 20 MG in SYRINGE 0 ML IV ONE (08:45)
[2017-05-24] MEDS ORDERED: ASPIRIN 81 MG CHEW PO SCH (09:00)
[2017-05-24 11:43] LABS: BUN/CREATININE RATIO 24.2 (10-20); CALCIUM 8.4 mg/dl (8.5-10.1); CREATININE 2.21 mg/dl (0.60-1.20); POTASSIUM 3.9 mmol/L (3.5-5.1)
--- NOTE | 2017-05-24 13:05 | ECHOCARDIOGRAM REPORT ---
*NOTICE TO RECEIVING [employer] This information is strictly Confidential and protected under [place] law. [place] law prohibits you from making any further disclosure of this information unless further disclosure is expressly permitted by the written consent of the person to whom it pertains or is authorized by law. A general authorization for the release of medical or other information is not sufficient for this purpose. Hospital accepts no responsibility if the information is made available to any other person, INCLUDING THE PATIENT. Interpretation Summary * Name: CUAUHTEMOC RAYGOZA Study Date: 05/24/2017 10:17 AM BP: 153/65 mmHg * Patient Location: 18 HR: 79 * : 1935 (M/d/yyyy) Gender: Female Height: 62 in * Age: 81 yrs Ethnicity: [place] Weight: 141 lb * Ordering Physician: Paul Og * Referring Physician: Self, Referred * Performed By: Edelmira Newton RCS * * Reason For Study: CHF * BSA: 1.6 m2 * The study was technically adequate. * Compared to prior study, changes are noted. * -- Conclusions -- * Left ventricular systolic function is mildly reduced. * Ejection Fraction = 40-45%. * The left atrium is mildly dilated. * Aortic valve sclerosis moderate, without significant aortic valvular stenosis. * There is mild mitral regurgitation. * There is mild tricuspid regurgitation. * The estimated systolic PAP is 49mmHg. * Diastolic dysfunction, Grade II (pseudonormalization pattern). Procedure Details * A complete two-dimensional transthoracic echocardiogram was performed (2D, M-mode, Doppler and color flow Doppler). Left Ventricle * The left ventricle is normal in size. * There is no thrombus. * There is mild concentric left ventricular hypertrophy. * Ejection Fraction = 40-45%. * Left ventricular systolic function is mildly reduced. * There is mild global hypokinesis of the left ventricle. Right Ventricle * The right ventricle is normal size. * The right ventricular systolic function is normal as assessed by tricuspid annular plane systolic excursion (TAPSE) (normal >1.5 cm). Atria * The left atrium is mildly dilated. * Right atrial size is normal. * There is no evidence of atrial septal defect, but resolution does not allow assessment for a patent foramen ovale. Mitral Valve * There is mild calcification of the posterior MV leaflet. * There is mild mitral annular calcification. * There is no mitral valve stenosis. * There is mild mitral regurgitation. Tricuspid Valve * The tricuspid valve is normal. * There is no tricuspid stenosis. * There is mild tricuspid regurgitation. * The estimated systolic PAP is 49mmHg. Aortic Valve * The aortic valve is trileaflet. * Aortic valve sclerosis moderate, without significant aortic valvular stenosis. * The aortic valve is mildly calcified. * Aortic stenosis is absent. * There is no significant aortic regurgitation. Pulmonic Valve * The pulmonary valve is not well seen, but the Doppler examination is normal without significant regurgitation or stenosis. Great Vessels * The aortic root is normal size. Pericardium/Pleural * There is no pericardial effusion. Great Vessels * Normal inferior vena cava diameter and respiratory variation suggests normal central venous pressure. Left Ventricular Diastolic Function * Diastolic dysfunction, Grade II (pseudonormalization pattern). MMode 2D Measurements and Calculations IVSd 1.1 cm IVSs 1.5 cm LVIDd 4.8 cm LVIDs 3.6 cm LVPWd 1.1 cm LVPWs 1.3 cm IVS/LVPW 0.96 FS 25.2 % EDV(Teich) 107.4 ml ESV(Teich) 54.0 ml EF(Teich) 49.7 % EDV(cubed) 110.4 ml ESV(cubed) 46.2 ml EF(cubed) 58.2 % % IVS thick 39.2 % % LVPW thick 13.9 % LV mass(C)d 190.7 grams LV mass(C)dI 115.8 grams/m\S\2 LV mass(C)s 173.7 grams LV mass(C)sI 105.4 grams/m\S\2 SV(Teich) 53.4 ml SI(Teich) 32.4 ml/m\S\2 SV(cubed) 64.2 ml SI(cubed) 39.0 ml/m\S\2 Ao root diam 2.8 cm Ao root area 6.3 cm\S\2 ACS 1.4 cm LA dimension 3.9 cm asc Aorta Diam 2.7 cm LA/Ao 1.4 LVAd ap4 30.7 cm\S\2 LVLd ap4 8.0 cm EDV(MOD-sp4) 95.7 ml EDV(sp4-el) 100.3 ml LVAs ap4 21.3 cm\S\2 LVLs ap4 6.9 cm ESV(MOD-sp4) 55.6 ml ESV(sp4-el) 56.0 ml EF(MOD-sp4) 41.9 % EF(sp4-el) 44.2 % LVAd ap2 28.2 cm\S\2 LVLd ap2 7.4 cm EDV(MOD-sp2) 89.1 ml EDV(sp2-el) 90.9 ml LVAs ap2 19.2 cm\S\2 LVLs ap2 6.8 cm ESV(MOD-sp2) 46.8 ml ESV(sp2-el) 46.4 ml EF(MOD-sp2) 47.5 % EF(sp2-el) 48.9 % LVLd %diff -7.50 % EDV(MOD-bp) 97.2 ml LVLs %diff -1.82 % ESV(MOD-bp) 50.6 ml EF(MOD-bp) 48.0 % SV(MOD-sp4) 40.1 ml SI(MOD-sp4) 24.3 ml/m\S\2 SV(MOD-sp2) 42.4 ml SI(MOD-sp2) 25.7 ml/m\S\2 SV(MOD-bp) 46.6 ml SI(MOD-bp) 28.3 ml/m\S\2 SV(sp4-el) 44.3 ml SI(sp4-el) 26.9 ml/m\S\2 SV(sp2-el) 44.5 ml SI(sp2-el) 27.0 ml/m\S\2 Doppler Measurements and Calculations MV E max tracy 124.1 cm/sec MV A max tracy 109.6 cm/sec MV E/A 1.1 MV P1/2t max tracy 131.0 cm/sec MV P1/2t 123.2 msec MVA(P1/2t) 1.8 cm\S\2 MV dec slope 311.5 cm/sec\S\2 MV dec time 0.21 sec Ao V2 max 201.7 cm/sec Ao max PG 16.3 mmHg Ao max PG (full) 9.5 mmHg LV V1 max PG 6.8 mmHg LV V1 max 130.0 cm/sec PA V2 max 108.3 cm/sec PA max PG 4.7 mmHg TR max tracy 324.3 cm/sec
--- NOTE | 2017-05-24 14:12 | CARDIOLOGY CONSULTATION ---
DATE OF CONSULTATION: 05/24/2017 REFERRING PHYSICIAN: Dr. Aakash Alcala. REASON FOR CONSULTATION: Congestive heart failure and elevated troponin. HISTORY OF PRESENT ILLNESS: Ms. Jj is a complex 81-year-old female who was in her usual state of health until approximately 24 hours ago, when she became acutely short of breath with associated cough. Daughters are present at the bedside. The patient appears very fatigued; however, awake and alert. She has been treated with intravenous diuretic therapy and antibiotics as well as intravenous steroids since admission. Her respiratory status has reportedly improved. She received an additional dose of intravenous Lasix this morning. Her creatinine is elevated above baseline, which is typically 2.1. Complex cardiovascular history listed below. The patient denies chest pain or palpitations. No dysrhythmias on telemetry. Significantly elevated white blood cell count and low hemoglobin noted. Culture is pending at this time. The patient denies orthopnea, PND, lower extremity edema or weight gain. She has been compliant with diuretics and cardiovascular medications as an outpatient. Denies objective fevers or sick contacts. The patient has been afebrile since admission. Positive cough with greenish yellow sputum noted. REVIEW OF SYSTEMS: The pertinent positives noted above, a comprehensive 10-system review is otherwise negative. PAST MEDICAL HISTORY: 1. Hospitalization in November 2011 with acute hypoxic respiratory failure, requiring instant intubation. 2. Cardiac catheterization in 2011 revealing mild nonobstructive atherosclerotic disease with trace to mild aortic insufficiency. 3. Breast cancer status post partial mastectomy. 4. Diabetes type 2. 5. Renal dysfunction. 6. Peripheral artery disease. 7. Dyslipidemia. 8. Hypertension. 9. Nonischemic cardiomyopathy with ejection fraction recorded as low as 10%-15%. 10. Moderate internal carotid arterial disease. 11. Anemia secondary to iron deficiency and chronic disease. PAST SURGICAL HISTORY: 1. Cardiac catheterization in 2011. 2. Cataract extraction. 3. Mastectomy. 4. Colonoscopy. 5. Cystoscopy. CURRENT HOME MEDICATIONS: 1. Carvedilol 6.25 mg twice daily. 2. Ferrous sulfate 324 daily. 3. Hydralazine 100 mg 3 times daily. 4. Zocor 20 mg daily. 5. Glipizide 2.5 mg daily. 6. Bumex 1 mg daily. 7. Rocaltrol 0.25 mg on Sunday, Sunday, and Sunday. 8. Imdur 60 mg daily. 9. Aspirin 81 mg daily. FAMILY HISTORY: Negative for premature CAD or sudden cardiac ; however, noncontributory given the patient's advanced age. SOCIAL HISTORY: Former tobacco abuse, quit in 2006. She has a greater than [id number] history. X-ray on admission demonstrates right upper lobe density consistent with consolidation and infiltrate. Trace bilateral pleural effusions. LABORATORY DATA: Troponin 0.172. Sodium 127, potassium 3.9, chloride is 95, CO2 is 22, BUN is 53, and creatinine is 2.21. Glucose is 226. INR is 1.2. White blood cell count 16.36, hemoglobin 7.5, and platelet count is 233. ABG, 7.42/37/83/23/93.7% on 3.5 liter nasal cannula. Urinalysis, small leukocyte esterase noted with an elevated urine osmolality. Influenza screen is negative. ECG demonstrates sinus rhythm with a left bundle branch block. PHYSICAL EXAMINATION: VITAL SIGNS: Temperature is 36.5 degrees centigrade, pulse 78 beats per minute and regular, respiratory rate 20 breaths per minute, blood pressure 162/73 and SaO2 is 94% on 4 liters nasal cannula. GENERAL: Chronically ill, no acute distress, awake and alert. HEENT: Mucous membranes moist. No scleral icterus. Conjunctivae pink. NECK: Supple. There is no JVD. The neck veins are flat. There is no carotid bruit auscultated. HEART: Regular with an occasional ectopy. There is a normal S1 and S2. There is no murmur, rub, or gallop appreciated. LUNGS: Demonstrate diminished breath sounds at the bases. There are crackles in the right upper lung field noted. No rhonchi or wheeze. ABDOMEN: Soft and nontender. No rebound or guarding. Normal bowel sounds. EXTREMITIES: Warm and dry without clubbing, cyanosis, or edema. NEUROLOGIC: Demonstrates no focal motor deficit. FINAL IMPRESSION: 1. A 81-year-old female admitted with acute hypoxic respiratory failure. Symptoms appear to be predominantly related to pneumonia and exacerbation of underlying chronic obstructive pulmonary disease. The patient appears to be intravascular dry on examination with flat neck veins, dry mucous membranes and lack of edema or weight gain. 2. Nonischemic cardiomyopathy with mild LV systolic dysfunction. 3. Hypertension -- borderline controlled. 4. Acute renal insufficiency superimposed on chronic kidney disease secondary to volume depletion. 5. Hyponatremia secondary to #1. 6. Chronic left bundle branch block. 7. Chronic anemia -- currently receiving 1 unit packed red blood cells. 8. Leukocytosis secondary to #1. 9. Moderate bilateral asymptomatic carotid vascular disease. PLAN AND RECOMMENDATIONS: Agree with antibiotic, IV steroids, and nebulizer treatments as per the internal medicine service. I would not administer any further intravenous diuretics at this time and continue to monitor the patient off Bumex. Repeat basic metabolic panel in the a.m. Other cardiovascular medications including hydralazine, simvastatin, carvedilol, and isosorbide monohydrate will be continued as previously ordered. No further cardiac testing at this time. I will continue to follow the patient during hospitalization. Thank you for allowing me to participate in the care of this patient.
[2017-05-24] MEDS: IPRATROPIUM BROMIDE NEB SOLN 0.02% 2.5 ML VIAL INH SCH ×3 (14:18→19:14)
[2017-05-24] MEDS: LEVALBUTEROL 1.25MG/0.5ML NEB INH SCH ×2 (14:19→19:14)
--- NOTE | 2017-05-24 14:36 | NEPHROLOGY CONSULTATION ---
DATE OF CONSULTATION: 05/24/2017 ATTENDING OF RECORD: Herrick Campusaime. REASON FOR CONSULTATION: EVAN on CKD. HISTORY OF PRESENT ILLNESS: This is a 81-year-old female who was last seen by me in October of last year with CKD stage IV. Prior to that, she was seen by me in 2011. The patient is with a history of diabetes, relatively well controlled, history of MD about 5 years ago with a history of nonischemic cardiomyopathy, quit smoking in 2006 after smoking for over 50 years. Avoids NSAIDs. She was diagnosed with a history of breast cancer about 5 years ago and has a history of anemia and was on Procrit injections, managed by Dr. Oconnor in the past. At the time that I saw the patient, she had a baseline creatinine in the low 2s from advanced age and diabetes as well as cardiorenal syndrome with right kidney at 9.9 cm and the left kidney at 9.7 cm, who was avoiding NSAIDs, quit smoking. Both diabetes and blood pressure well controlled. The patient did not have multiple myeloma. The patient presents during this hospitalization with shortness of breath and diagnosed with possible underlying pneumonia and was treated with IV antibiotics as well as IV steroids. She was given a dose of Lasix as well. The patient did present with a low sodium of 126 and is currently now 127. Creatinine was 2.43 and has trended down now to 2.21. An echo was done by cardiology, which showed systolic function mildly reduced with an EF of 40%-45% with some mildly dilated left atrium. Estimated systolic pulmonary pressure of 49 mmHg with grade 2 diastolic dysfunction. PAST MEDICAL HISTORY: Breast cancer, anemia of chronic kidney disease, CKD stage IV with baseline creatinine in the low 2s, hypertension, nonischemic cardiomyopathy, hyperlipidemia, and peripheral arterial disease. PAST SURGICAL HISTORY: Cataract surgery and left partial mastectomy. SOCIAL HISTORY: Former smoker, quit in 2006. 50 year history. No alcohol use. No drugs. Lives with family. FAMILY HISTORY: Significant for heart disease. REVIEW OF SYSTEMS: Shortness of breath. Cough. No fevers or chills. No nausea or vomiting. Decreased appetite. No rash. All other review of systems otherwise negative. CURRENT MEDICATIONS: Levaquin 500 mg IV q. 2 days; calcitriol 0.25 mcg on Mondays, Wednesdays, and Fridays; Zocor 20 mg at night; iron 325 p.o. b.i.d.; Lantus subQ b.i.d.; Coreg 6.25 b.i.d.; vitamin D 1000 units daily; hydralazine 100 mg p.o. t.i.d.; Imdur 60 mg daily; and cefepime 2 grams IV daily. PHYSICAL EXAMINATION: VITAL SIGNS: Temperature 36.5, pulse 78, respiratory rate is 20, blood pressure 162/73, and pulse ox 94% on 4 liters. In's 870 and out's 1125. GENERAL: Awake, alert, and oriented x3. 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 NECK: Supple. PULMONARY: Significant rhonchi with end expiratory wheeze. CARDIAC: Regular rate and rhythm with bundle branch block on telemetry. ABDOMEN: Bowel sounds positive. Soft and nontender. EXTREMITIES: No clubbing, cyanosis or edema. NEUROLOGICALLY: Mild facial droop. Otherwise, nonfocal. LABORATORIES: Sodium level is 127, potassium 3.9, chloride 95, bicarbonate is 22, BUN is 53, creatinine is 2.21, glucose 232, and calcium is 8.4. Hemoglobin A1c is 5.9. Mag is 2.6. Troponin 0.172 and 0.168. White count 16,000, H&H 7.5 and 22.3, and platelet count is 233. ABG shows a pH 7.42, pCO2 of 37, pO2 of 83, and bicarbonate of 23. INR is 1.2. Urine osmolality 394 with urine random sodium of 11 with a UA, urine pH of 5, specific gravity of 1.025, 1+ protein, and small leukocyte esterase. Influenza negative. Chest x-ray, interstitial thickening with dense relatively symmetric bilateral upper lung airspace opacities, which favor an alveolar pulmonary edema and suspected bilateral pleural effusions. ASSESSMENT AND PLAN: 1. Acute kidney injury on chronic kidney disease stage IV with baseline creatinine in the low 2s, comes in with shortness of breath, elevated white count with a creatinine of 2.43. Diuretics initially held. The patient did receive 20 mg of IV Lasix this morning and is currently on broad spectrum antibiotics for possible pneumonia and she did receive a dose of Solu-Medrol earlier this morning. The patient is resting comfortably on nasal cannula with significant rhonchi in lungs. Difficult to determine whether there is a congestive heart failure component to her shortness of breath. Does have significant rhonchi and there are signs of edema on chest x-ray. Despite the fact that the creatinine is elevated, would recommend continuing both the antibiotics and the diuretics to try and optimize her heart function as well as pulmonary function. Okay if creatinine trends up as we try to optimize the lungs. 2. Hyponatremia. The patient was under stress. Volume status is difficult to determine. Could have signs of volume overload with possible underlying congestive heart failure and/or could have an element of syndrome of inappropriate antidiuretic hormone from chronic shortness of breath and underlying pneumonia. Sodium levels are mildly improved compared to admission. We will follow the sodium trends. For now, would fluid restrict the patient and continue daily diuretics as well as the antibiotics. Hoping for a goal sodium of level above 130. I appreciate the consultation.
[2017-05-24] MEDS ORDERED: FUROSEMIDE INJ 40 MG in SYRINGE 0 ML IV ONE (15:00)
--- NOTE | 2017-05-24 15:05 | Pharmacy Progress Note ---
Glycemic Control Intl Consult Date of Service May 24, 2017. Scope Glycemic Pharmacist consulted by Dr Alcala on 05/24/17 for glycemic control and to write orders per [facility] inpatient glycemic control protocol Objective Weight (Kilograms): 60.400 Accuchecks BSG (last 24hrs): Test 05/24/17 01:10 05/24/17 03:41 05/24/17 05:52 05/24/17 06:44 Random Glucose 361 mg/dl (70-99) 296 mg/dl (70-99) Bedside Glucose 361 mg/dl (70-90) 298 mg/dl (70-90) Test 05/24/17 11:00 05/24/17 11:15 Random Glucose 232 mg/dl (70-99) Bedside Glucose 226 mg/dl (70-90) Laboratory Data (last 24hrs) Test 05/24/17 01:10 05/24/17 04:19 05/24/17 05:52 05/24/17 11:00 Anion Gap 11.0 mmol/L 10.0 mmol/L 10.0 mmol/L BUN/Creatinine Ratio 20.9 22.2 24.2 Blood Urea Nitrogen 51 mg/dl 50 mg/dl 53 mg/dl Creatinine 2.43 mg/dl 2.25 mg/dl 2.21 mg/dl Potassium Level 4.0 mmol/L 3.9 mmol/L 3.9 mmol/L Sodium Level 126 mmol/L 127 mmol/L 127 mmol/L White Blood Count 18.46 K/uL 16.36 K/uL Red Blood Count 2.41 M/uL 2.41 M/uL Hemoglobin 7.7 g/dL 7.5 g/dL Hematocrit 22.6 % 22.3 % Mean Corpuscular Volume 93.8 fL 92.5 fL Mean Corpuscular Hemoglobin 32.0 pg 31.1 pg Mean Corpuscular Hemoglobin Concent 34.1 g/dl 33.6 g/dl Platelet Count 238 K/uL 233 K/uL Mean Platelet Volume 10.8 fL 10.5 fL Neutrophils (%) (Auto) 93.4 % 95.0 % Lymphocytes (%) (Auto) 2.4 % 2.1 % Monocytes (%) (Auto) 3.4 % 2.2 % Eosinophils (%) (Auto) 0.0 % 0.0 % Basophils (%) (Auto) 0.1 % 0.1 % Neutrophils # (Auto) 17.25 K/uL 15.55 K/uL Lymphocytes # (Auto) 0.44 K/uL 0.35 K/uL Monocytes # (Auto) 0.63 K/uL 0.36 K/uL Eosinophils # (Auto) 0.00 K/uL 0.00 K/uL Basophils # (Auto) 0.01 K/uL 0.01 K/uL Hemoglobin A1c 5.9 % HbA1c Test 05/24/17 04:19 Hemoglobin A1c 5.9 % (4.5-5.6) H Recent Pertinent Medications Outpatient Anti-diabetic Regimen: * Glipizide XL 2.5 mg PO daily The patient is currently receiving: * Basal insulin: Lantus 5 units every 12 hours (total of 10 units this morning * Correctional Insulin: Novolog Correction per scale ACHS Goal Range: Low 140 mg/dL - High 180 mg/dL Correction Factor: 30 mg/dL/unit * Prandial insulin: Per carb ratio of 1 unit per 10 grams CHO consumed Risk Factors for Insulin Resistance: * Steroids: Solu-Medrol 125 mg IV x 1 * Infection: possible PNA * Diet: was NPO earlier, now type 2 diabetic diet Assessment & Plan ASSESSMENT: * ADA & AACE recommend a goal blood sugar range 140-180 mg/dl for the majority of critically ill & non-critically ill patients. However, more stringent targets may be selected in individual cases. Will utilize more stringent goal of 110-140mg/dl based on patient age & comorbidities. Additionally, tighter glycemic control is warranted to facilitate infection healing. * Ms Jj is a 81 y/o F with a PMH of PAD, CKS< nonischemic cardiomyopathy, and HTN who presented with hypoxia (PNA vs CHF) and EVAN. When she initially presented her blood sugar was 361 mg/dL and she was given Solu-Medrol 125 mg IV x 1. She responded nicely to SQ Regular insulin and was given 10 units of Lantus. Her lunch blood sugar had responded well to Novolog 4 units and Lantus and she had dropped to 226 mg/dL. * When pharmacy was consulted, her goal range was tightened slightly. A scale Lantus was placed for this evening since patient had excellent outpatient glycemic control, unsure how long steroid effect will last. Novolog parameters currently appropriate. Will hold glipizide. PLAN FOR INPATIENT GLYCEMIC CONTROL: * Holding outpatient oral diabetes medications * Basal insulin with LANTUS 10 units SQ x 1 then Lantus 0-10 units BID * Correctional Insulin with NOVOLOG per scale ACHS or Q6hrs while NPO * Goal Range: Low 110 mg/dL - High 140 mg/dL * Correction Factor: 30 mg/dL/unit * Nutritional / Prandial insulin per carb ratio of 1 unit per 10 grams CHO consumed * Please note that the plan above was derived based on current level of insulin resistance and hospital stress. These recommendations are appropriate for inpatient admission only. Plan of care upon discharge will need to be reassessed to avoid potential outpatient hypo/hyperglycemia. Thank you.
[2017-05-24] MEDS ORDERED: FUROSEMIDE INJ 20 MG in SYRINGE 0 ML IV SCH (16:00)
[2017-05-24] MEDS: FERROUS SULFATE 325 MG TAB PO SCH (16:55)
[2017-05-24 19:06] LABS: CKMB/CK RATIO 6.8 (0-3.0)
[2017-05-24] MEDS: SIMVASTATIN 20 MG TAB PO SCH (20:30)
[2017-05-25] VITALS (11 sets, daily range): BP systolic 119–172; BP diastolic 56–70; PULSE 70–81; TEMP 36.4–36.7; O2SAT 91–96
[2017-05-25] MEDS: IPRATROPIUM BROMIDE NEB SOLN 0.02% 2.5 ML VIAL INH SCH ×4 (02:11→19:57)
[2017-05-25] MEDS: LEVALBUTEROL 1.25MG/0.5ML NEB INH SCH ×4 (02:11→19:57)
[2017-05-25] MEDS: CEFEPIME IV 2,000 MG in SYRINGE 7.5 ML IV SCH (05:41)
[2017-05-25 06:15] LABS: HEMATOCRIT 29.7 % (37-47); MEAN CELL VOLUME 88.4 fL (80-100); MEAN PLATELET VOLUME 10.7 fL (7.4-10.4); PLATELET COUNT 267 K/uL (130-400); RED BLOOD COUNT 3.36 M/uL (4.2-5.4); WHITE BLOOD COUNT 23.29 K/uL (4.8-10.8)
[2017-05-25 06:36] LABS: BUN/CREATININE RATIO 25.3 (10-20); CALCIUM 8.7 mg/dl (8.5-10.1); CREATININE 2.45 mg/dl (0.60-1.20); MAGNESIUM 2.5 mg/dl (1.8-2.4); POTASSIUM 3.7 mmol/L (3.5-5.1)
[2017-05-25 06:48] LABS: THYROID STIMULATING HORMONE 1.05 uIu/ml (0.300-4.500)
[2017-05-25 06:58] LABS: BASO ABS # 0.01 K/uL (0-0.2); COMPLETE YES; LYMPH % 2.5 %; LYMPH ABS # 0.58 K/uL (1.2-3.4); MONO % 2.8 %; NEUT % 93.7 %
[2017-05-25] MEDS: FERROUS SULFATE 325 MG TAB PO SCH ×2 (08:30→17:29)
[2017-05-25] MEDS: CHOLECALCIFEROL 1000 INTER.UNIT TAB PO SCH (08:30)
[2017-05-25] MEDS: ISOSORBIDE MONONITRATE 60 MG TABCR PO SCH (08:30)
[2017-05-25] MEDS: CARVEDILOL 6.25 MG TAB PO SCH ×2 (08:30→20:40)
[2017-05-25] MEDS: CALCITRIOL 0.25 MCG CAP PO SCH (08:30)
[2017-05-25] MEDS: INSULIN ASPART 100 UNITS/ML 3 ML PEN SC SCH ×4 (08:32→20:47)
[2017-05-25] MEDS: INSULIN GLARGINE SOLOSTAR 100 UNITS/ML 3 ML PEN SC SCH ×2 (08:32→20:46)
--- NOTE | 2017-05-25 08:43 | DIAGNOSTIC IMAGING REPORT ---
(CHEST) THORAX WITHOUT CT DOSE: 301.66 mGy.cm CLINICAL HISTORY: 81 years-old Female with CONGESTION VS INFILTRATES. Acute shortness of breath with congestion. Follow-up study to assess multiple opacities TECHNIQUE: Multiaxial CT images of the chest were performed without contrast. A dose lowering technique was utilized adhering to the principles of ALARA. COMPARISON: Chest radiograph 05/24/2017, chest CT 11/22/2011. FINDINGS: Heterogeneity of the thyroid without dominant nodule. There are multiple enlarged mediastinal and hilar lymph nodes. AP window lymph node measures 2.1 x 1.6 cm, unchanged. Precarinal lymph node measures 2.2 x 1.6 cm, also unchanged. Large subcarinal lymph node measures 2.3 x 1.3 cm also appears similar in size from comparison. Heart is moderately enlarged with three-vessel distribution coronary arterial disease. There is moderate plaquing of the thoracic aorta without aneurysm identified. There is dilation of the main pulmonary artery, 3.1 cm suggesting pulmonary arterial hypertension. Moderate bilateral pleural effusions. Multifocal patchy consolidative and groundglass opacities are present bilaterally, greatest within the upper lobes and perihilar distribution. Fluid tracks along the fissures. Respiratory motion mildly limits evaluation of the lungs. Mild intralobular septal thickening is also noted within the upper lung zones.. Central airways are patent. Mild compressive atelectasis of the lower lobes. No acute mildly of the imaged upper abdomen. Vascular calcifications are seen within the upper abdomen. Asymmetric soft tissue density of the superior central left breast is seen, 1.3 x 1.3 cm on image 135 of series 4. The bones appear osteopenic. Multilevel endplate degenerative changes. IMPRESSION: 1. Moderate cardiomegaly with bilateral moderate sized pleural effusions and multifocal patchy groundglass and consolidative opacities seen primarily within the upper lobes with associated intralobular septal thickening suggests alveolar pulmonary edema with congestive heart failure. Superimposed pneumonia is also within the differential. Mild compressive bibasilar atelectasis. 2. Mediastinal and hilar adenopathy is nonspecific and appears generally stable from comparison study 11/22/2011. 3. Suspected soft tissue density lesion of the superior central breast measuring up to 1.3 cm as above could be correlated with mammography. Electronically signed by: Jaylen Nassar M.D. 05/25/2017 8:42 AM Dictated Date/Time: 05/25/2017 8:28 AM
[2017-05-25] MEDS ORDERED: FUROSEMIDE INJ 20 MG in SYRINGE 0 ML IV SCH (09:00)
--- NOTE | 2017-05-25 10:46 | CARDIOLOGY PROGRESS NOTE ---
DATE: 05/25/2017 SUBJECTIVE: The patient was seen and examined at the bedside. She is more alert today. Denies shortness of breath at rest. No orthopnea or PND. No lower extremity edema. She received 2 units of packed red blood cells yesterday with improvement of hemoglobin from 7.[address] of the chest was performed this a.m. demonstrating a moderate right-sided pleural effusion, multifocal patchy ground-glass and consolidative opacities within the upper lobes and a soft tissue density involving the patient's left breast. Diuretics have been placed on hold. Her creatinine has trended upward slightly with elevated BUN as well. Denies chest discomfort or palpitations. No dysrhythmias on telemetry. ECG demonstrates left bundle branch block. REVIEW OF SYSTEMS: Pertinent positives noted above and a 4-system review including cardiovascular, pulmonary, gastroenterologic, and neurologic systems otherwise negative. LABORATORY DATA: White blood cell count 23.29, hemoglobin is 10.4, and platelet count is 267. Sodium 129, potassium 3.7, chloride is 95, CO2 is 22, BUN is 62, and creatinine is 2.45. Troponin 0.169. PHYSICAL EXAMINATION: VITAL SIGNS: Temperature is 36.6 degrees centigrade, pulse 70 beats per minute and regular, respiratory rate 20 breaths per minute, and blood pressure 163/70. GENERAL: NAD, chronically ill. HEENT: Mucous membranes are dry. No scleral icterus. Conjunctivae pink. NECK: Supple without JVD or HJR. No carotid bruit. HEART: Regular with a normal S1 and S2. No murmur, rub or gallop. LUNGS: Demonstrate diminished breath sounds at the right base. No rhonchi or wheeze. ABDOMEN: Soft and nontender. No rebound or guarding. EXTREMITIES: Warm and dry without clubbing, cyanosis, or edema. NEUROLOGIC: Demonstrates no focal motor deficit. FINAL IMPRESSION: 1. A 81-year-old female with acute hypoxic respiratory failure, which is multifactorial secondary to presumed underlying pneumonia with possible component of congestive heart failure. A moderate right-sided pleural effusion is noted. The patient does not examine to be overtly volume overloaded per physical exam. 2. Nonischemic cardiomyopathy with mild LV systolic dysfunction. 3. Hypertension -- BP elevated. 4. Acute renal insufficiency superimposed on chronic kidney disease. 5. Hyponatremia. 6. Left bundle branch block. 7. Chronic anemia -- improved status post 2 units of packed red blood cells. 8. Marked leukocytosis. 9. Left-sided breast mass. PLAN AND RECOMMENDATIONS: With the presence of moderate right pleural effusion and transfusion of 2 units of packed red blood cells yesterday, I have ordered 1 dose of 20 mg Lasix. Consider pulmonary consultation for thoracentesis of moderate right-sided pleural effusion. Continue antibiotics as per internal medicine. We will continue to follow blood pressure closely. Other medications will be continued as previously ordered.
[2017-05-25] MEDS ORDERED: FUROSEMIDE INJ 20 MG in SYRINGE 0 ML IV ONE ×2 (11:00→13:15)
[2017-05-25] MEDS ORDERED: INSULIN GLARGINE SOLOSTAR 100 UNITS/ML 3 ML PEN SC ONE (12:15)
--- NOTE | 2017-05-25 12:58 | Nephrology Progress Note ---
Nephrology Progress Note Date of Service: May 25, 2017. Subjective 81 yo female with a presumed pneumonia who is clinically improving. had blood transfusion yesterday along with antibiotics and low dose diuretics. much more energetic today. breathing is easier. sounds better as well. in good spirits today. Objective Date Time Temp Pulse Resp B/P (MAP) Pulse Ox O2 Delivery O2 Flow Rate FiO2 05/25/17 11:48 36.4 74 20 146/68 (94) 93 Nasal Cannula 3.0 05/25/17 08:00 Nasal Cannula 3.0 05/25/17 07:24 36.6 70 20 163/70 (101) 96 Nasal Cannula 3.0 05/25/17 06:56 72 14 95 Nasal Cannula 3.0 05/25/17 04:00 Nasal Cannula 4.0 05/25/17 03:00 36.6 81 20 172/69 (103) 96 Nasal Cannula 3.0 05/25/17 02:12 76 14 93 Nasal Cannula 3.0 05/25/17 00:00 95 Nasal Cannula 4.0 05/24/17 23:15 36.6 79 18 159/75 (103) 93 Nasal Cannula 3.0 05/24/17 20:00 93 Nasal Cannula 4.0 05/24/17 19:16 72 14 95 Nasal Cannula 4.0 05/24/17 19:05 36.6 79 20 159/76 (103) 93 Nasal Cannula 4.0 05/24/17 16:00 93 Nasal Cannula 4.0 05/24/17 15:19 36.6 78 20 150/72 (98) 93 Nasal Cannula 4.0 05/24/17 14:21 74 16 93 Nasal Cannula 4.0 05/24/17 13:12 36.5 78 20 162/73 94 4.0 Physical Exam: [id number] Eyes-right eye blind ENT-mmm Neck-supple Lungs-mild rales throughout, overall much improved Heart-rrr Abdomen-bs+ s/nt/nd Extremities-mild edema Neuro-nonfocal Current Inpatient Medications Medications (Trade) Dose Ordered Sig/Orestes Route Start Time Stop Time Status Last Admin Dose Admin Acetaminophen (Tylenol Tab) 650 mg Q4H PRN PO 05/24/17 03:00 06/23/17 02:59 Al Hydrox/Mg Hydrox/Simethicone (Maalox Max Susp) 15 ml Q4H PRN PO 05/24/17 03:00 06/23/17 02:59 Magnesium Hydroxide (Milk Of Magnesia Susp) 30 ml Q12H PRN PO 05/24/17 03:00 06/23/17 02:59 Ondansetron HCl (Zofran Inj) 4 mg Q6H PRN IV 05/24/17 03:00 06/23/17 02:59 Nitroglycerin (Nitrostat Tab) 0.4 mg UD PRN SL 05/24/17 03:00 06/23/17 02:59 Insulin Aspart (novoLOG ASPART) SLIDING SCALE G... ACHS SC 05/24/17 07:00 06/23/17 06:59 05/25/17 12:24 8 UNITS Calcitriol (Rocaltrol Cap) 0.25 mcg MoWeFr@0900 PO 05/25/17 09:00 06/24/17 08:59 05/25/17 08:30 0.25 MCG Carvedilol (Coreg Tab) 6.25 mg BID PO 05/24/17 09:00 06/23/17 08:59 05/25/17 08:30 6.25 MG Cholecalciferol (Vitamin D Tab) 1,000 inter.unit DAILY PO 05/24/17 09:00 06/23/17 08:59 05/25/17 08:30 1,000 INTER.UNIT Hydralazine HCl (Apresoline Tab) 100 mg TID PO 05/24/17 09:00 06/23/17 08:59 05/25/17 08:30 100 MG Isosorbide Mononitrate (Imdur Ext Rel Tab) 60 mg DAILY PO 05/24/17 09:00 06/23/17 08:59 05/25/17 08:30 60 MG Loratadine (Claritin Tab) 10 mg DAILY PRN PO 05/24/17 03:00 06/23/17 02:59 Simvastatin (Zocor Tab) 20 mg HS PO 05/24/17 21:00 06/23/17 20:59 05/24/17 20:30 20 MG Miscellaneous Information (Order Awaiting Action) 1 ea QS N/A 05/24/17 08:00 06/23/17 07:59 Levofloxacin 500 mg/Prmx 150 ml @ 100 mls/hr Q2D@0100 IV 05/26/17 01:00 05/31/17 23:59 Albuterol/ Ipratropium (Duoneb) 3 ml Q4R PRN INH 05/24/17 03:15 06/23/17 03:14 Glucose (Glucose 40% Gel) 15-30 GRAMS 15 GRAMS... UD PRN PO 05/24/17 03:45 06/23/17 03:44 Glucose (Glucose Chew Tab) 4-8 Tablets 4 Tabl... UD PRN PO 05/24/17 03:45 06/23/17 03:44 Dextrose (Dextrose 50% 50ML Syringe) 25-50ML OF 50% DW IV FOR... UD PRN IV 05/24/17 03:45 06/23/17 03:44 Glucagon (Glucagon Inj) 1 mg UD PRN SQ 05/24/17 03:45 06/23/17 03:44 Cefepime HCl 2000 mg/Syringe 20 ml @ 5 mls/min DAILY@0500 IV 05/24/17 05:00 05/31/17 04:59 05/25/17 05:41 5 MLS/MIN Cefepime HCl (Consult) 1 ea UD PRN N/A 05/24/17 04:30 06/23/17 04:29 Levofloxacin (Consult) 1 ea UD PRN N/A 05/24/17 05:00 06/23/17 04:59 Ipratropium [place] (Atrovent 0.02% 0.5MG/2.5ML Neb) 0.5 mg Q6R INH 05/24/17 09:00 06/23/17 08:59 05/25/17 06:56 0.5 MG Levalbuterol (Xopenex 1.25MG/ 0.5ML Neb) 1.25 mg Q6R INH 05/24/17 09:00 06/23/17 08:59 05/25/17 06:56 1.25 MG Miscellaneous Information (Consult Glycemic Management Pharmacy) 1 ea UD PRN N/A 05/24/17 08:44 06/23/17 08:43 Ferrous Sulfate (Feosol Tab) 325 mg BIDM PO 05/24/17 16:45 06/23/17 16:44 05/25/17 08:30 325 MG Insulin Glargine (Lantus Solostar Pen) SEE PROTOCOL TEXT BID SC 05/24/17 21:00 06/23/17 20:59 05/25/17 08:32 5 UNITS Furosemide 20 mg/ Syringe 2 ml @ 4 mls/min DAILY IV 05/25/17 09:00 06/24/17 08:59 Future Hold Last 24 Hours Test 05/24/17 15:53 05/24/17 18:28 05/24/17 20:09 05/25/17 05:33 Bedside Glucose 191 mg/dl 196 mg/dl Total Creatine Kinase 79 U/L Creatine Kinase MB 5.4 ng/ml Creatine Kinase MB Ratio 6.8 Troponin I 0.169 ng/ml White Blood Count 23.29 K/uL Red Blood Count 3.36 M/uL Hemoglobin 10.4 g/dL Hematocrit 29.7 % Mean Corpuscular Volume 88.4 fL Mean Corpuscular Hemoglobin 31.0 pg Mean Corpuscular Hemoglobin Concent 35.0 g/dl Platelet Count 267 K/uL Mean Platelet Volume 10.7 fL Neutrophils (%) (Auto) 93.7 % Lymphocytes (%) (Auto) 2.5 % Monocytes (%) (Auto) 2.8 % Eosinophils (%) (Auto) 0.0 % Basophils (%) (Auto) 0.0 % Neutrophils # (Auto) 21.81 K/uL Lymphocytes # (Auto) 0.58 K/uL Monocytes # (Auto) 0.65 K/uL Eosinophils # (Auto) 0.00 K/uL Basophils # (Auto) 0.01 K/uL RDW Standard Deviation 47.9 fL RDW Coefficient of Variation 14.6 % Immature Granulocyte % (Auto) 1.0 % Immature Granulocyte # (Auto) 0.24 K/uL Nucleated RBC Absolute Count (auto) 0.02 K/uL Nucleated Red Blood Cells % 0.1 % Sodium Level 129 mmol/L Potassium Level 3.7 mmol/L Chloride Level 95 mmol/L Carbon Dioxide Level 22 mmol/L Anion Gap 12.0 mmol/L Blood Urea Nitrogen 62 mg/dl Creatinine 2.45 mg/dl Est Creatinine Clear Calc Drug Dose 14.7 ml/min Estimated GFR () 21.0 Estimated GFR (Non- 18.1 BUN/Creatinine Ratio 25.3 Random Glucose 173 mg/dl Calcium Level 8.7 mg/dl Magnesium Level 2.5 mg/dl Thyroid Stimulating Hormone (TSH) 1.050 uIu/ml Test 05/25/17 06:35 05/25/17 11:43 Bedside Glucose 155 mg/dl 261 mg/dl Assessment & Plan ckd stage 4-creatinine ranging 2.2 to 2.4, previous baseline in the 2 range. no dialysis needed at this time. hyponatremia-sodium slowly improving. likely siadh in the setting of pulmonary disease. currently on lasix and treating the underlying presumed pneumonia. sodium of 129 today. was 126 on admission. pulm: Dr. Garvin of pulmonary evaluating patient now. does have pleural effusions. ct scan rather impressive. discussed further with cardiology as well. monitor volume status closely. may need more diuretics over the weekend. overall, though, clinically much improved but finding of fluid overload on clinical exam and ct scan. will give additional dose of iv lasix this afternoon.
--- NOTE | 2017-05-25 14:11 | PULMONARY CONSULTATION ---
DATE OF CONSULTATION: 05/25/2017 DATE OF CONSULTATION: 05/25/2017 TIME: 1:00 p.m. 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 She had a history of sudden onset of significant shortness of breath. It began the previous afternoon. She states she just felt tired and could not breathe well. She denied any cough or sputum production or hemoptysis. She denies chest pains. She did admit to having 1 episode of vomiting the night before. She did not think she vomited all that much. Apparently according to nursing staff yesterday she looked poorly. She was very short of breath. She had noisy respirations. All that has improved today. The clinical course has been somewhat perplexing. Radiology has been suspecting CHF and pulmonary edema based upon the x-ray findings but cardiology and nephrology are not convinced that this is due to CHF. She as noted is feeling much better. Somewhere in her chart, it says she has COPD, but the patient denies that. However, I am not convinced she is the best historian. She is not on any breathing medicines she states. Her energy level has been somewhat low. Usually she is pretty active. Reportedly from reviewing the history, she gets around her house without difficulty and go up and down steps without problems. PAST SURGICAL HISTORY: 1. Left partial mastectomy. 2. Cataract surgeries. 3. Cystoscopy. PAST MEDICAL HISTORY: 1. Congestive heart failure. 2. Chronic kidney disease. 3. Diabetes. 4. Hyperlipidemia. 5. Hypertension. 6. Diastolic dysfunction. 7. Breast cancer. 8. Peripheral arterial disease. 9. Internal carotid disease. 10. Reportedly the patient was intubated in 2011, but I do not know the circumstances. SOCIAL HISTORY: Tobacco, the patient had first told me that she quit smoking in her 30s. The old records had suggested however that she did not quit smoking until 2006. Ultimately, she acknowledges that that was the case. She did smoke about a pack per day for 50 years. ETOH -- None. ALLERGIES: No known allergies. FAMILY HISTORY: Noncontributory. ALLERGIES: No known allergies. MEDICATIONS: At home: 1. Aspirin 81 mg daily. 2. Bumex 1 mg daily. 3. Calcitriol 0.25 mcg 3 times per week. 4. Carvedilol 6.25 mg b.i.d. 5. Vitamin D3 daily. 6. Glipizide 2.5 mg daily. 7. Hydralazine 100 mg t.i.d. 8. Isosorbide mononitrate 60 mg daily. 9. Simvastatin 20 mg at bedtime. REVIEW OF SYSTEMS: Negative except for the above-mentioned complaints. Ten systems were reviewed. PHYSICAL EXAMINATION: GENERAL: The patient is a very pleasant 81-year-old female who was cooperative, alert and oriented. She was in no distress. VITAL SIGNS: She has been afebrile since admission. Most recent temperature 36.4. HEAD, EYES, EARS, NOSE, AND THROAT: Eye exam shows an implant on the left. 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 This apparently occurred after a cataract surgery. Nares were clear. Nasal cannula was in place. Mouth exam showed no erythema or exudate. NECK: Palpation of the neck reveals no lymph nodes. BMI is 24.1. HEART: Heart rate was 74 per minute. The rhythm is regular. Blood pressure 146/68. LUNGS: Auscultation of the lung fernandez reveals rales posteriorly in both mid to upper lung fernandez. The lower lung fernandez seem to be more clear. There are slightly decreased breath sounds at both bases. I could not percuss any definitive significance from side to side. ABDOMEN: Soft and nontender. Bowel sounds were present. EXTREMITIES: Showed no cyanosis, clubbing or edema. LABORATORY DATA: Chest x-ray done on 05/24/2017 showed symmetrical bilateral upper lung field opacities which would be suspicious for pulmonary edema with an inability to exclude pneumonia. Small effusions were suspected. She had a CAT scan of the chest done today. This shows small to moderate pleural effusions bilaterally with underlying atelectatic changes. She has fairly diffuse infiltrates, especially in the upper lung fernandez. Again, the differential would be pneumonia versus pulmonary edema. She has mediastinal and hilar adenopathy which has been unchanged going back to 2012. The CAT scan did report a soft tissue density in the left breast measuring 1.3 cm. White count on admission was 18.46. Hemoglobin was only 7.7. Platelets were 238,000. She did receive packed cells yesterday. The patient states she had 2 units. Today, her white count is 23.29. Hemoglobin is 10.4. Platelets are 267,000. INR is 1.2. Urinalysis shows +1 protein. Urine sodium was 11. Blood gas showed a pH of 7.42 with a pCO2 of 37 and a pO2 of 83 on 3.5 liter nasal cannula done early on the morning of 05/24/2017. Electrolytes show sodium 129, potassium 3.7, chloride 95, bicarb 22. BUN is 62 with a creatinine of 2.45. Magnesium was 2.5. Troponin was elevated at 0.169. ProBNP was greater than 35,000. TSH was 1.05. EKG showed an underlying sinus rhythm with a left bundle branch block. PACs were noted. They did have aberrant conduction. Echocardiogram reported ejection fraction 40-45%. Pulmonary artery pressure systolic was 49. Grade 2 diastolic dysfunction was noted. IMPRESSIONS: 1. Diffuse bilateral infiltrates -- questionable congestive heart failure versus pneumonia. 2. Bilateral pleural effusions. 3. Hilar and mediastinal adenopathy -- no change in 5 years. 4. Leukocytosis. 5. Anemia. COMMENTS AND RECOMMENDATIONS: The patient is clinically dramatically better. In spite of that, her CAT scan done today looks severely abnormal. She did have an episode of vomiting. The possibility of aspiration could potentially explain her symptoms and x-ray findings. Her ProBNP is exceedingly high. This may correlate with diastolic dysfunction. I believe it would be reasonable to evaluate the patient with an ultrasound and if there is adequate fluid to do a thoracentesis. This might help to rule out infected fluid. Evaluation of the fluid itself may help determine the underlying etiology of her fluid and her illness. I have spoken with Dr. Arauz and he will arrange for the bedside ultrasound to be done and then if appropriate do a thoracentesis. She is on levofloxacin and I agree with continuing that. However, her renal function obviously affects the dosage that needs to be utilized and I believe that is being evaluated already. She is on nebulizer treatments that I would continue. She is on cefepime as well. Clinically, however, she seems to be much better than her x-rays would anticipate. Thank you for asking me to assist in her care.
--- NOTE | 2017-05-25 14:58 | Pharmacy Progress Note ---
Glycemic Control Progress Note Date of Service May 25, 2017. Scope Glycemic Pharmacist consulted for glycemic control to write orders per [facility] inpatient glycemic control protocol. Objective Accuchecks BSG (last 24hrs): Test 05/24/17 15:53 05/24/17 20:09 05/25/17 05:33 05/25/17 06:35 Bedside Glucose 191 mg/dl (70-90) 196 mg/dl (70-90) 155 mg/dl (70-90) Random Glucose 173 mg/dl (70-99) Test 05/25/17 11:43 Bedside Glucose 261 mg/dl (70-90) HbA1c: Test 05/24/17 04:19 Hemoglobin A1c 5.9 % (4.5-5.6) H Recent Pertinent Medications The patient is currently receiving: * Basal insulin: Lantus 10 units every 12 hours * Correctional Insulin: Novolog Correction per scale ACHS Goal Range: Low 110 mg/dL - High 140 mg/dL Correction Factor: 30 mg/dL/unit * Prandial insulin: Per carb ratio of 1 unit per 10 grams CHO consumed * Oral Agents: On hold for admission Outpatient Anti-Diabetic Meds Glipizide XL 2.5mg PO daily Assessment & Plan ASSESSMENT: * See progress note from 05/24/17 for more background info, in short: * Pt receiving SQ basal bolus insulin regimen for hyperglycemia secondary to baseline DM (outpatient regimen on hold),stress/infection, Solumedrol 125mg IV x 1 dose * Patient is currently receiving an average of 36 units of insulin per day with suboptimal control. * 20 units of basal insulin * 16 units of prandial/correctional insulin * BSGs over the past 24hrs: 298, 226, 191, 196, 155, 261 * Changes needed to insulin regimen: * AM Fasting BSG = 155 mg/dl. This is in slightly goal range for patient based on inpatient targets and co-morbidities. Therefore no change needed to basal insulin. Continue Lantus 10 units SQ BID. * Post-prandial BSGs are elevated/BSGs rise throughout the day therefore need to tighten CF/CR PLAN FOR INPATIENT GLYCEMIC CONTROL: * Oral Agents * Continue to hold outpatient oral diabetes medications d/t high risk of hypo with sulfonylureas. * Basal insulin * Lantus 10 units SQ BID * Will give a reduced dose of 5 units if BSG < 150 mg/d based on advanced age * HOLD if BSG < 110 mg/dl * Bolus insulin: tighten CR only, * NovoLog per scale ACHS or Q6hrs while NPO * Goal Range: Low 110 mg/dL - High 140 mg/dL * Correction Factor: 30 mg/dL/unit * Nutritional / Prandial insulin per carb ratio of 1 unit per 8 grams CHO consumed * Please note that the plan above was derived based on current level of insulin resistance and hospital stress. These recommendations are appropriate for inpatient admission only. Plan of care upon discharge will need to be reassessed to avoid potential outpatient hypo/hyperglycemia. Thank you.
[2017-05-25] MEDS ORDERED: NURSING VERBAL MED ORDER ONE (17:30)
--- NOTE | 2017-05-25 18:31 | Progress Note ---
Medicine Progress Note Date & Time of Visit: May 25, 2017 at 18:13. Subjective seen resting in bed, alert, bright states she feels improved compared to yesterday breathing is improving, has coarse cough denies chest pain, fever/chills denies other symptoms Objective Last 8 Hrs Date Time Temp Pulse Resp B/P (MAP) Pulse Ox O2 Delivery O2 Flow Rate FiO2 05/25/17 16:00 Nasal Cannula 3.0 05/25/17 15:18 36.5 77 20 151/65 (93) 95 Nasal Cannula 3.0 05/25/17 14:06 71 16 96 Nasal Cannula 3.0 05/25/17 12:00 Nasal Cannula 3.0 05/25/17 11:48 36.4 74 20 146/68 (94) 93 Nasal Cannula 3.0 Physical Exam: General- oriented x 3, not in distress, speaks in sentences with no effort Eyes- EOMI, anicteric ENT- dry oral mucosa Neck- supple,no JVD Lungs- (+) crackles bilaterally, no wheezing Heart- regular rhythm; no murmur, normal rate Abdomen- normal bowel sounds, soft, nontender Extremities- no pretibial edema, no calf tenderness; peripheral pulses intact Neuro- alert, oriented x 3;no gross focal deficits Skin- warm & dry Laboratory Results: Last 24 Hours Test 05/24/17 18:28 05/24/17 20:09 05/25/17 05:33 05/25/17 06:35 Total Creatine Kinase 79 U/L Creatine Kinase MB 5.4 ng/ml Creatine Kinase MB Ratio 6.8 Troponin I 0.169 ng/ml Bedside Glucose 196 mg/dl 155 mg/dl White Blood Count 23.29 K/uL Red Blood Count 3.36 M/uL Hemoglobin 10.4 g/dL Hematocrit 29.7 % Mean Corpuscular Volume 88.4 fL Mean Corpuscular Hemoglobin 31.0 pg Mean Corpuscular Hemoglobin Concent 35.0 g/dl Platelet Count 267 K/uL Mean Platelet Volume 10.7 fL Neutrophils (%) (Auto) 93.7 % Lymphocytes (%) (Auto) 2.5 % Monocytes (%) (Auto) 2.8 % Eosinophils (%) (Auto) 0.0 % Basophils (%) (Auto) 0.0 % Neutrophils # (Auto) 21.81 K/uL Lymphocytes # (Auto) 0.58 K/uL Monocytes # (Auto) 0.65 K/uL Eosinophils # (Auto) 0.00 K/uL Basophils # (Auto) 0.01 K/uL RDW Standard Deviation 47.9 fL RDW Coefficient of Variation 14.6 % Immature Granulocyte % (Auto) 1.0 % Immature Granulocyte # (Auto) 0.24 K/uL Nucleated RBC Absolute Count (auto) 0.02 K/uL Nucleated Red Blood Cells % 0.1 % Sodium Level 129 mmol/L Potassium Level 3.7 mmol/L Chloride Level 95 mmol/L Carbon Dioxide Level 22 mmol/L Anion Gap 12.0 mmol/L Blood Urea Nitrogen 62 mg/dl Creatinine 2.45 mg/dl Est Creatinine Clear Calc Drug Dose 14.7 ml/min Estimated GFR () 21.0 Estimated GFR (Non- 18.1 BUN/Creatinine Ratio 25.3 Random Glucose 173 mg/dl Calcium Level 8.7 mg/dl Magnesium Level 2.5 mg/dl Thyroid Stimulating Hormone (TSH) 1.050 uIu/ml Test 05/25/17 11:43 05/25/17 16:21 Bedside Glucose 261 mg/dl 226 mg/dl Assessment & Plan ASSESSMENT AND PLAN: This is a 81-year-old female who presents with acute shortness of breath. ACUTE HYPOXIC RESPIRATORY FAILURE SECONDARY TO: BILATERAL, POSSIBLE COMMUNITY ACQUIRED PNEUMONIA BILATERAL PLEURAL EFFUSION - cultures blood: negative urine: negative MRSA nasal negative CT chest: 1. Moderate cardiomegaly with bilateral moderate sized pleural effusions and multifocal patchy groundglass and consolidative opacities seen primarily within the upper lobes with associated intralobular septal thickening suggests alveolar pulmonary edema with congestive heart failure. Superimposed pneumonia is also within the differential. Mild compressive bibasilar atelectasis. 2. Mediastinal and hilar adenopathy is nonspecific and appears generally stable from comparison study 11/22/2011. 3. Suspected soft tissue density lesion of the superior central breast measuring up to 1.3 cm as above could be correlated with mammography. - afebrile still on supplemental o2 by NC clinically, appears improving - on Cefepime + Levaquin IV Day 2 Nebs Pulm consulted for possible thoracentesis ACUTE ON CHRONIC CHF EXACERBATION DIASTOLIC TYPE, HISTORY OF NONISCHEMIC CARDIOMYOPATHY - echo: * -- Conclusions -- * Left ventricular systolic function is mildly reduced. * Ejection Fraction = 40-45%. * The left atrium is mildly dilated. * Aortic valve sclerosis moderate, without significant aortic valvular stenosis. * There is mild mitral regurgitation. * There is mild tricuspid regurgitation. * The estimated systolic PAP is 49mmHg. * Diastolic dysfunction, Grade II (pseudonormalization pattern). - Lasix 20mg IV additional given, has acute renal failure on CKD 4, will be cautious with diuresis Cardio and Nephro consulted, appreciate the recommendations Mild elevation of troponin, most likely secondary to acute renal failure. - no chest pain troponins stable Acute renal failure and chronic kidney disease stage IV. Baseline creatinine around 2, presents with creatinine of 2.4. Hold the Bumex. - Lasix 20mg IV given, has acute renal failure on CKD 4, will be cautious with diuresis Hyponatremia with sodium of 126. Checking the sodium osmolality, urine osmolality and urine sodium, repeat the labs - monitor Na Nephro consulted Acute on chronic anemia of chronic kidney disease. Hemoglobin baseline between 8 to 9. Presents with hemoglobin of 7.7. - 2 units pRBC ordered Fe low,Iron supplement - Hg stable Diabetes Type 2 - Lantus and ISS Hypertension. Continue Coreg, hydralazine and Imdur. - stable Peripheral vascular disease - hold ASA until GI bleed ruled out Deep venous thrombosis prophylaxis. - hold heparin until bleeding ruled out with FOBT DISPOSITION pending Current Inpatient Medications: Current Inpatient Medications Medications (Trade) Dose Ordered Sig/Orestes Route Start Time Stop Time Status Last Admin Dose Admin Acetaminophen (Tylenol Tab) 650 mg Q4H PRN PO 05/24/17 03:00 06/23/17 02:59 Al Hydrox/Mg Hydrox/Simethicone (Maalox Max Susp) 15 ml Q4H PRN PO 05/24/17 03:00 06/23/17 02:59 Magnesium Hydroxide (Milk Of Magnesia Susp) 30 ml Q12H PRN PO 05/24/17 03:00 06/23/17 02:59 Ondansetron HCl (Zofran Inj) 4 mg Q6H PRN IV 05/24/17 03:00 06/23/17 02:59 Nitroglycerin (Nitrostat Tab) 0.4 mg UD PRN SL 05/24/17 03:00 06/23/17 02:59 Insulin Aspart (novoLOG ASPART) SLIDING SCALE G... ACHS SC 05/24/17 07:00 06/23/17 06:59 05/25/17 17:31 10 UNITS Calcitriol (Rocaltrol Cap) 0.25 mcg MoWeFr@0900 PO 05/25/17 09:00 06/24/17 08:59 05/25/17 08:30 0.25 MCG Carvedilol (Coreg Tab) 6.25 mg BID PO 05/24/17 09:00 06/23/17 08:59 05/25/17 08:30 6.25 MG Cholecalciferol (Vitamin D Tab) 1,000 inter.unit DAILY PO 05/24/17 09:00 06/23/17 08:59 05/25/17 08:30 1,000 INTER.UNIT Hydralazine HCl (Apresoline Tab) 100 mg TID PO 05/24/17 09:00 06/23/17 08:59 05/25/17 16:03 100 MG Isosorbide Mononitrate (Imdur Ext Rel Tab) 60 mg DAILY PO 05/24/17 09:00 06/23/17 08:59 05/25/17 08:30 60 MG Loratadine (Claritin Tab) 10 mg DAILY PRN PO 05/24/17 03:00 06/23/17 02:59 Simvastatin (Zocor Tab) 20 mg HS PO 05/24/17 21:00 06/23/17 20:59 05/24/17 20:30 20 MG Levofloxacin 500 mg/Prmx 150 ml @ 100 mls/hr Q2D@0100 IV 05/26/17 01:00 05/31/17 23:59 Albuterol/ Ipratropium (Duoneb) 3 ml Q4R PRN INH 05/24/17 03:15 06/23/17 03:14 Glucose (Glucose 40% Gel) 15-30 GRAMS 15 GRAMS... UD PRN PO 05/24/17 03:45 06/23/17 03:44 Glucose (Glucose Chew Tab) 4-8 Tablets 4 Tabl... UD PRN PO 05/24/17 03:45 06/23/17 03:44 Dextrose (Dextrose 50% 50ML Syringe) 25-50ML OF 50% DW IV FOR... UD PRN IV 05/24/17 03:45 06/23/17 03:44 Glucagon (Glucagon Inj) 1 mg UD PRN SQ 05/24/17 03:45 06/23/17 03:44 Cefepime HCl 2000 mg/Syringe 20 ml @ 5 mls/min DAILY@0500 IV 05/24/17 05:00 05/31/17 04:59 05/25/17 05:41 5 MLS/MIN Cefepime HCl (Consult) 1 ea UD PRN N/A 05/24/17 04:30 06/23/17 04:29 Levofloxacin (Consult) 1 ea UD PRN N/A 05/24/17 05:00 06/23/17 04:59 Ipratropium [place] (Atrovent 0.02% 0.5MG/2.5ML Neb) 0.5 mg Q6R INH 05/24/17 09:00 06/23/17 08:59 05/25/17 14:03 0.5 MG Levalbuterol (Xopenex 1.25MG/ 0.5ML Neb) 1.25 mg Q6R INH 05/24/17 09:00 06/23/17 08:59 05/25/17 14:03 1.25 MG Miscellaneous Information (Consult Glycemic Management Pharmacy) 1 ea UD PRN N/A 05/24/17 08:44 06/23/17 08:43 Ferrous Sulfate (Feosol Tab) 325 mg BIDM PO 05/24/17 16:45 06/23/17 16:44 05/25/17 17:29 325 MG Insulin Glargine (Lantus Solostar Pen) SEE PROTOCOL TEXT BID SC 05/24/17 21:00 06/23/17 20:59 05/25/17 08:32 5 UNITS Furosemide 20 mg/ Syringe 2 ml @ 4 mls/min DAILY IV 05/25/17 09:00 06/24/17 08:59 Future Hold
[2017-05-25] MEDS: SIMVASTATIN 20 MG TAB PO SCH (20:40)
[2017-05-26] VITALS (10 sets, daily range): BP systolic 119–143; BP diastolic 55–64; PULSE 71–85; TEMP 36.7–37; O2SAT 92–97
[2017-05-26] MEDS: LEVOFLOXACIN / D5W 500 MG in PREMIXED IN D5W 150 ML IV SCH (00:57)
[2017-05-26] MEDS: LEVALBUTEROL 1.25MG/0.5ML NEB INH SCH ×4 (01:55→20:09)
[2017-05-26] MEDS: IPRATROPIUM BROMIDE NEB SOLN 0.02% 2.5 ML VIAL INH SCH ×4 (01:55→20:09)
[2017-05-26] MEDS: CEFEPIME IV 2,000 MG in SYRINGE 7.5 ML IV SCH (06:00)
[2017-05-26 06:16] LABS: BASO % 0.1 %; BASO ABS # 0.02 K/uL (0-0.2); COMPLETE YES; HEMATOCRIT 29.9 % (37-47); IG% 1.8 %; LYMPH % 3.4 %; LYMPH ABS # 0.73 K/uL (1.2-3.4); MEAN CELL VOLUME 89.5 fL (80-100); MEAN CORPUSCULAR HEMOGLOBIN 30.2 pg (25-34); MEAN CORPUSCULAR HGB CONC 33.8 g/dl (32-36); MEAN PLATELET VOLUME 10.5 fL (7.4-10.4); MONO % 4.2 %; NEUT % 90.5 %; PLATELET COUNT 255 K/uL (130-400); RED BLOOD COUNT 3.34 M/uL (4.2-5.4); WHITE BLOOD COUNT 21.77 K/uL (4.8-10.8)
[2017-05-26 06:47] LABS: BUN/CREATININE RATIO 28.4 (10-20); CALCIUM 8.2 mg/dl (8.5-10.1); CREATININE 2.87 mg/dl (0.60-1.20); MAGNESIUM 2.6 mg/dl (1.8-2.4); POTASSIUM 3.6 mmol/L (3.5-5.1)
[2017-05-26] MEDS: INSULIN ASPART 100 UNITS/ML 3 ML PEN SC SCH ×4 (07:00→21:15)
--- NOTE | 2017-05-26 07:17 | PULMONARY PROGRESS NOTE ---
DATE: 05/26/2017 TIME: 6:55 a.m. SUBJECTIVE: The patient feels good. She denies having any significant shortness of breath overnight. She did start to expectorate some yellow sputum in small quantities yesterday. Dr. Arauz did a bedside ultrasound and did not feel the patient warranted doing a thoracentesis based upon the small quantities of fluid noticed. She denies chest pains. She states her appetite is improved. OBJECTIVE: GENERAL: The patient is comfortable at rest. VITAL SIGNS: Temperature is 37 degrees. She has not had any significant fevers since admission. Heart rate is 90 per minute. The rhythm is regular. Blood pressure 126/55. HEENT: As had been noted previously, her right eye is opacified. The remainder of ENT exam is unremarkable. CHEST: The neck veins were slightly distended. They emptied with inspiration. LUNGS: Respiratory rate is 20 breaths per minute. Saturation done by myself was 91% on 3 liters. She still has rales and mild rhonchi in the upper lung fernandez and mid lung fernandez bilaterally. ABDOMEN: Soft and nontender. EXTREMITIES: Showed no cyanosis, clubbing or edema. LABORATORY DATA: White count today is 21.77. Hemoglobin is 10.1. Platelets are 255,000. Electrolytes today show sodium 132, potassium 3.6, chloride 98, bicarbonate 23. BUN is 82 with a creatinine of 2.87 and previously it had been 62 and 2.45. Blood sugar is 112. IMPRESSIONS: 1. Diffuse bilateral infiltrates -- questionable congestive heart failure versus pneumonia. 2. Bilateral pleural effusions -- small 3 hilar and mediastinal adenopathy -- no change in 5 years. 3. Leukocytosis. 4. Anemia. COMMENTS AND RECOMMENDATIONS: The patient looks much better than one would expect considering her CAT scan and chest x-ray. She still has auscultatory findings of abnormalities; however. She has not had fevers, but she does have leukocytosis. There are no prior white blood cell counts to compare with except way back in 2013 when it was normal. For now, I would continue treating with the antibiotics and recheck a chest x-ray for tomorrow. We would continue with the nebulizer treatments. We will recheck and see if her ProBNP has improved at all.
[2017-05-26] MEDS: CARVEDILOL 6.25 MG TAB PO SCH ×2 (08:17→21:10)
[2017-05-26] MEDS: FERROUS SULFATE 325 MG TAB PO SCH ×2 (08:17→17:12)
[2017-05-26] MEDS: ISOSORBIDE MONONITRATE 60 MG TABCR PO SCH (08:17)
[2017-05-26] MEDS: CHOLECALCIFEROL 1000 INTER.UNIT TAB PO SCH (08:18)
[2017-05-26] MEDS: INSULIN GLARGINE SOLOSTAR 100 UNITS/ML 3 ML PEN SC SCH ×2 (08:19→21:14)
[2017-05-26] MEDS ORDERED: ASPIRIN 81 MG ECTAB PO ONE (09:22)
--- NOTE | 2017-05-26 09:25 | Progress Note ---
Medicine Progress Note Date & Time of Visit: May 26, 2017 at 09:18. Subjective patient seen sitting up in bed, watching TV, comfortable in good spirits states she continues to feel improved states breathing is much better, has occasional productive cough no chest pain denies other symptoms Objective Last 8 Hrs Date Time Temp Pulse Resp B/P (MAP) Pulse Ox O2 Delivery O2 Flow Rate FiO2 05/26/17 07:37 36.7 84 19 143/63 (89) 93 Room Air 05/26/17 07:04 75 16 92 Nasal Cannula 3.0 05/26/17 04:00 Nasal Cannula 3.0 05/26/17 03:08 37.0 83 19 126/55 (78) 96 Nasal Cannula 3.0 05/26/17 01:55 79 16 96 Nasal Cannula 3.0 Physical Exam: General- oriented x 3, not in distress, speaks in sentences with no effort Eyes- anicteric ENT- clear Neck- supple,no JVD Lungs- (+) crackles bilaterally and , occasional mild wheezes Heart- regular rhythm; no murmur, normal rate Abdomen- normal bowel sounds, soft, nontender Extremities- no pretibial edema, no calf tenderness; peripheral pulses intact Neuro- alert, oriented x 3;no gross focal deficits Skin- warm & dry Laboratory Results: Last 24 Hours Test 05/25/17 11:43 05/25/17 16:21 05/25/17 19:55 05/26/17 05:42 Bedside Glucose 261 mg/dl 226 mg/dl 212 mg/dl White Blood Count 21.77 K/uL Red Blood Count 3.34 M/uL Hemoglobin 10.1 g/dL Hematocrit 29.9 % Mean Corpuscular Volume 89.5 fL Mean Corpuscular Hemoglobin 30.2 pg Mean Corpuscular Hemoglobin Concent 33.8 g/dl Platelet Count 255 K/uL Mean Platelet Volume 10.5 fL Neutrophils (%) (Auto) 90.5 % Lymphocytes (%) (Auto) 3.4 % Monocytes (%) (Auto) 4.2 % Eosinophils (%) (Auto) 0.0 % Basophils (%) (Auto) 0.1 % Neutrophils # (Auto) 19.71 K/uL Lymphocytes # (Auto) 0.73 K/uL Monocytes # (Auto) 0.92 K/uL Eosinophils # (Auto) 0.00 K/uL Basophils # (Auto) 0.02 K/uL RDW Standard Deviation 47.9 fL RDW Coefficient of Variation 14.5 % Immature Granulocyte % (Auto) 1.8 % Immature Granulocyte # (Auto) 0.39 K/uL Sodium Level 132 mmol/L Potassium Level 3.6 mmol/L Chloride Level 98 mmol/L Carbon Dioxide Level 23 mmol/L Anion Gap 11.0 mmol/L Blood Urea Nitrogen 82 mg/dl Creatinine 2.87 mg/dl Est Creatinine Clear Calc Drug Dose 12.6 ml/min Estimated GFR () 17.3 Estimated GFR (Non- 15.0 BUN/Creatinine Ratio 28.4 Random Glucose 116 mg/dl Calcium Level 8.2 mg/dl Magnesium Level 2.6 mg/dl Test 05/26/17 06:28 Bedside Glucose 112 mg/dl Assessment & Plan ASSESSMENT AND PLAN: This is a 81-year-old female who presents with acute shortness of breath. ACUTE HYPOXIC RESPIRATORY FAILURE SECONDARY TO: BILATERAL, POSSIBLE COMMUNITY ACQUIRED PNEUMONIA BILATERAL PLEURAL EFFUSION - cultures blood: negative urine: negative MRSA nasal negative CT chest: 1. Moderate cardiomegaly with bilateral moderate sized pleural effusions and multifocal patchy groundglass and consolidative opacities seen primarily within the upper lobes with associated intralobular septal thickening suggests alveolar pulmonary edema with congestive heart failure. Superimposed pneumonia is also within the differential. Mild compressive bibasilar atelectasis. 2. Mediastinal and hilar adenopathy is nonspecific and appears generally stable from comparison study 11/22/2011. 3. Suspected soft tissue density lesion of the superior central breast measuring up to 1.3 cm as above could be correlated with mammography. - remains afebrile still on supplemental o2 by NC at 3 L clinically, improving daily - continue Cefepime + Levaquin IV Day 3 Nebs q6h Pulmonary Consulted: thoracentesis deferred for now ACUTE ON CHRONIC CHF EXACERBATION DIASTOLIC TYPE, HISTORY OF NONISCHEMIC CARDIOMYOPATHY - echo: * -- Conclusions -- * Left ventricular systolic function is mildly reduced. * Ejection Fraction = 40-45%. * The left atrium is mildly dilated. * Aortic valve sclerosis moderate, without significant aortic valvular stenosis. * There is mild mitral regurgitation. * There is mild tricuspid regurgitation. * The estimated systolic PAP is 49mmHg. * Diastolic dysfunction, Grade II (pseudonormalization pattern). - Lasix 20mg IV additional given crea increased to 2.8 hold off on Lasix today Cardio and Nephro consulted, appreciate the recommendations Acute renal failure and chronic kidney disease stage IV. Baseline creatinine around 2, presents with creatinine of 2.4. Hold the Bumex. - management as noted above Mild elevation of troponin, most likely secondary to acute renal failure. - no chest pain troponins stable Hyponatremia with sodium of 126. Checking the sodium osmolality, urine osmolality and urine sodium, repeat the labs - Na improved to 131 , monitor Acute on chronic anemia of chronic kidney disease, CKD - Hemoglobin baseline between 8 to 9. Presents with hemoglobin of 7.7. - 2 units pRBC ordered Fe low,Iron supplement - Hg stable monitor Diabetes Type 2 - Lantus and ISS Hypertension. Continue Coreg, hydralazine and Imdur. - stable Peripheral vascular disease - continue ASA Deep venous thrombosis prophylaxis. Heparin q8h DISPOSITION pending PT/OT farhat lives with daughter anticipate d/c to either home or Rehab when medically stable Current Inpatient Medications: Current Inpatient Medications Medications (Trade) Dose Ordered Sig/Orestes Route Start Time Stop Time Status Last Admin Dose Admin Acetaminophen (Tylenol Tab) 650 mg Q4H PRN PO 05/24/17 03:00 06/23/17 02:59 Al Hydrox/Mg Hydrox/Simethicone (Maalox Max Susp) 15 ml Q4H PRN PO 05/24/17 03:00 06/23/17 02:59 Magnesium Hydroxide (Milk Of Magnesia Susp) 30 ml Q12H PRN PO 05/24/17 03:00 06/23/17 02:59 Ondansetron HCl (Zofran Inj) 4 mg Q6H PRN IV 05/24/17 03:00 06/23/17 02:59 Nitroglycerin (Nitrostat Tab) 0.4 mg UD PRN SL 05/24/17 03:00 06/23/17 02:59 Insulin Aspart (novoLOG ASPART) SLIDING SCALE G... ACHS SC 05/24/17 07:00 06/23/17 06:59 05/26/17 07:00 5 UNITS Calcitriol (Rocaltrol Cap) 0.25 mcg MoWeFr@0900 PO 05/25/17 09:00 06/24/17 08:59 05/25/17 08:30 0.25 MCG Carvedilol (Coreg Tab) 6.25 mg BID PO 05/24/17 09:00 06/23/17 08:59 05/26/17 08:17 6.25 MG Cholecalciferol (Vitamin D Tab) 1,000 inter.unit DAILY PO 05/24/17 09:00 06/23/17 08:59 05/26/17 08:18 1,000 INTER.UNIT Hydralazine HCl (Apresoline Tab) 100 mg TID PO 05/24/17 09:00 06/23/17 08:59 05/26/17 08:17 100 MG Isosorbide Mononitrate (Imdur Ext Rel Tab) 60 mg DAILY PO 05/24/17 09:00 06/23/17 08:59 05/26/17 08:17 60 MG Loratadine (Claritin Tab) 10 mg DAILY PRN PO 05/24/17 03:00 06/23/17 02:59 Simvastatin (Zocor Tab) 20 mg HS PO 05/24/17 21:00 06/23/17 20:59 05/25/17 20:40 20 MG Levofloxacin 500 mg/Prmx 150 ml @ 100 mls/hr Q2D@0100 IV 05/26/17 01:00 05/31/17 23:59 05/26/17 00:57 100 MLS/HR Albuterol/ Ipratropium (Duoneb) 3 ml Q4R PRN INH 05/24/17 03:15 06/23/17 03:14 Glucose (Glucose 40% Gel) 15-30 GRAMS 15 GRAMS... UD PRN PO 05/24/17 03:45 06/23/17 03:44 Glucose (Glucose Chew Tab) 4-8 Tablets 4 Tabl... UD PRN PO 05/24/17 03:45 06/23/17 03:44 Dextrose (Dextrose 50% 50ML Syringe) 25-50ML OF 50% DW IV FOR... UD PRN IV 05/24/17 03:45 06/23/17 03:44 Glucagon (Glucagon Inj) 1 mg UD PRN SQ 05/24/17 03:45 06/23/17 03:44 Cefepime HCl 2000 mg/Syringe 20 ml @ 5 mls/min DAILY@0500 IV 05/24/17 05:00 05/31/17 04:59 05/26/17 06:00 5 MLS/MIN Cefepime HCl (Consult) 1 ea UD PRN N/A 05/24/17 04:30 06/23/17 04:29 Levofloxacin (Consult) 1 ea UD PRN N/A 05/24/17 05:00 06/23/17 04:59 Ipratropium [place] (Atrovent 0.02% 0.5MG/2.5ML Neb) 0.5 mg Q6R INH 05/24/17 09:00 06/23/17 08:59 05/26/17 07:02 0.5 MG Levalbuterol (Xopenex 1.25MG/ 0.5ML Neb) 1.25 mg Q6R INH 05/24/17 09:00 06/23/17 08:59 05/26/17 07:02 1.25 MG Miscellaneous Information (Consult Glycemic Management Pharmacy) 1 ea UD PRN N/A 05/24/17 08:44 06/23/17 08:43 Ferrous Sulfate (Feosol Tab) 325 mg BIDM PO 05/24/17 16:45 06/23/17 16:44 05/26/17 08:17 325 MG Insulin Glargine (Lantus Solostar Pen) SEE PROTOCOL TEXT BID SC 05/24/17 21:00 06/23/17 20:59 05/26/17 08:19 5 UNITS Furosemide 20 mg/ Syringe 2 ml @ 4 mls/min DAILY IV 05/25/17 09:00 06/24/17 08:59 Future Hold
--- NOTE | 2017-05-26 13:05 | CARDIOLOGY PROGRESS NOTE ---
DATE: 05/26/2017 CARDIOLOGY FOLLOWUP NOTE The patient seen and examined. Chart, medications, telemetry reviewed. SUBJECTIVE: The patient feels improved today. Notes no worsening cough or shortness of breath. Notes no orthopnea or worsening edema. Notes no dizziness or lightheadedness. Notes no syncope or near syncope. OBJECTIVE: VITAL SIGNS: Heart rate is 84, blood pressure is 143/63, O2 saturations 93% on 3 liters nasal cannula. LABORATORY DATA: White cell count 21.7, hemoglobin is 10.1. Sodium is 132, potassium is 3.6, chloride is 98, BUN is 82, creatinine is 2.87. IMPRESSION: A 81-year-old female admitted with worsening shortness of breath, cough, bilateral pulmonary infiltrates and pleural effusions, elevated white cell count suggested an infectious etiology. Current exam does not suggest worsening heart failure. Laboratory studies reflect improving sodium, but elevated creatinine. We would not initiate further diuresis. The patient has responded to antibiotic therapy as well as blood transfusion. We will continue to follow patient in the hospital.
[2017-05-26] MEDS: HEPARIN SOD 5000 UNIT/0.5 ML CARP SQ SCH ×2 (14:00→21:16)
[2017-05-26] MEDS: SIMVASTATIN 20 MG TAB PO SCH (21:10)
[2017-05-27] VITALS (11 sets, daily range): BP systolic 113–149; BP diastolic 51–69; PULSE 51–88; TEMP 36.4–37; O2SAT 92–98
[2017-05-27] MEDS: IPRATROPIUM BROMIDE NEB SOLN 0.02% 2.5 ML VIAL INH SCH ×4 (01:47→19:57)
[2017-05-27] MEDS: LEVALBUTEROL 1.25MG/0.5ML NEB INH SCH ×4 (01:47→19:54)
[2017-05-27] MEDS: CEFEPIME IV 2,000 MG in SYRINGE 7.5 ML IV SCH (05:00)
[2017-05-27] MEDS: HEPARIN SOD 5000 UNIT/0.5 ML CARP SQ SCH ×3 (05:59→21:22)
[2017-05-27 07:20] LABS: HEMATOCRIT 30.1 % (37-47); MEAN CELL VOLUME 90.9 fL (80-100); MEAN CORPUSCULAR HEMOGLOBIN 30.8 pg (25-34); MEAN CORPUSCULAR HGB CONC 33.9 g/dl (32-36); PLATELET COUNT 244 K/uL (130-400); RED BLOOD COUNT 3.31 M/uL (4.2-5.4); WHITE BLOOD COUNT 19.06 K/uL (4.8-10.8)
[2017-05-27 08:00] LABS: BUN/CREATININE RATIO 30.6 (10-20); CALCIUM 8.1 mg/dl (8.5-10.1); CREATININE 2.79 mg/dl (0.60-1.20); MAGNESIUM 2.4 mg/dl (1.8-2.4); POTASSIUM 3.6 mmol/L (3.5-5.1)
[2017-05-27 08:50] LABS: BASO % 0.1 %; BASO ABS # 0.02 K/uL (0-0.2); COMPLETE YES; EOS % 0.2 %; IG% 5.8 %; LYMPH % 6.1 %; LYMPH ABS # 1.16 K/uL (1.2-3.4); MONO % 4.8 %; VACUOLIZATION 1+
--- NOTE | 2017-05-27 09:20 | DIAGNOSTIC IMAGING REPORT ---
TWO VIEW CHEST CLINICAL HISTORY: Follow-up pneumonia. FINDINGS: AP and lateral chest radiographs are compared to study dated 05/24/2017 and correlated with chest CT dated 05/25/2017. The heart is enlarged and there is atherosclerotic calcification of the thoracic aorta. The pulmonary vasculature is noncongested. Patchy airspace opacities are again seen in the upper lobes. This has significantly cleared from 05/24/2013. Small pleural effusions persist. There is no pneumothorax. The skeletal structures are osteopenic. Degenerative change is noted throughout the spine. There are healed right-sided rib fractures. IMPRESSION: 1. Cardiomegaly without radiographic evidence of congestive failure. 2. There are patchy airspace opacities in the upper lobes. This has significantly cleared from 05/24/2017. Continued follow-up to complete resolution is recommended. 3. Small pleural effusions persist Electronically signed by: Christopher Morales M.D. 05/27/2017 9:19 AM Dictated Date/Time: 05/27/2017 9:17 AM
[2017-05-27] MEDS: CARVEDILOL 6.25 MG TAB PO SCH ×2 (09:37→21:09)
[2017-05-27] MEDS: ASPIRIN 81 MG ECTAB PO SCH (09:38)
[2017-05-27] MEDS: CHOLECALCIFEROL 1000 INTER.UNIT TAB PO SCH (09:38)
[2017-05-27] MEDS: FERROUS SULFATE 325 MG TAB PO SCH ×2 (09:39→17:04)
[2017-05-27] MEDS: ISOSORBIDE MONONITRATE 60 MG TABCR PO SCH (09:39)
[2017-05-27] MEDS: INSULIN ASPART 100 UNITS/ML 3 ML PEN SC SCH ×4 (09:45→21:21)
[2017-05-27] MEDS: INSULIN GLARGINE SOLOSTAR 100 UNITS/ML 3 ML PEN SC SCH ×2 (09:46→21:19)
--- NOTE | 2017-05-27 10:52 | CARDIOLOGY PROGRESS NOTE ---
DATE: 05/27/2017 The patient was seen and examined. Chart, medications, and telemetry were reviewed. SUBJECTIVE: The patient feels improved this morning, less breathless. Ambulatory in the hallway. Physical therapy this morning with good tolerance. Notes no chest pain or discomfort. Notes no dizziness or lightheadedness. OBJECTIVE: VITAL SIGNS: Heart rate 75 and blood pressure is 122/65. NECK: Thin. There is no jugular venous distention. LUNGS: Revealed mild blunting of breath sounds at the left base, but otherwise are predominantly clear. CARDIOVASCULAR: Regular. There is no S3 gallop. ABDOMEN: Soft and nontender. EXTREMITIES: Free of edema. IMPRESSION: A 81-year-old female admitted with acute respiratory failure, hypoxic, multifactorial, now clinically improved predominantly with use of antibiotic therapies and minimal diuresis. Renal function is notable for acute on chronic renal insufficiency. Improving hyponatremia. Would recommend continuing to hold Bumex at this time. Supplement potassium as needed. Follow renal function as clinical course progresses. Pulmonary status substantially improved by examination and by chest x-ray performed today.
--- NOTE | 2017-05-27 11:28 | Progress Note ---
Medicine Progress Note Date & Time of Visit: May 27, 2017 at 11:25. Subjective sitting up in chair, comfortable in good spirits states she continues to feel improved ambulated in the halls today, with 2 L O2 via NC denies dyspnea, cough is getting less no other symptoms Objective Last 8 Hrs Date Time Temp Pulse Resp B/P (MAP) Pulse Ox O2 Delivery O2 Flow Rate FiO2 05/27/17 10:12 75 95 05/27/17 08:00 Nasal Cannula 2.0 05/27/17 07:40 36.6 75 18 122/65 (84) 94 2.0 05/27/17 07:24 69 16 93 Nasal Cannula 2.0 05/27/17 04:00 Nasal Cannula 2.0 Physical Exam: General- oriented x 3, not in distress, speaks in sentences with no effort Eyes- anicteric ENT- clear Neck- no JVD Lungs- (+) crackles bilaterally , no wheezing Heart- regular rhythm; no murmur, normal rate Abdomen- normal bowel sounds, soft, nontender Extremities- no pretibial edema, no calf tenderness; peripheral pulses intact Neuro- alert, oriented x 3;no gross focal deficits Skin- warm & dry Laboratory Results: Last 24 Hours Test 05/26/17 16:00 05/26/17 20:30 05/27/17 06:24 05/27/17 06:46 Bedside Glucose 176 mg/dl 176 mg/dl 128 mg/dl White Blood Count 19.06 K/uL Red Blood Count 3.31 M/uL Hemoglobin 10.2 g/dL Hematocrit 30.1 % Mean Corpuscular Volume 90.9 fL Mean Corpuscular Hemoglobin 30.8 pg Mean Corpuscular Hemoglobin Concent 33.9 g/dl Platelet Count 244 K/uL Mean Platelet Volume 11.0 fL Neutrophils (%) (Auto) 83.0 % Lymphocytes (%) (Auto) 6.1 % Monocytes (%) (Auto) 4.8 % Eosinophils (%) (Auto) 0.2 % Basophils (%) (Auto) 0.1 % Neutrophils # (Auto) 15.83 K/uL Lymphocytes # (Auto) 1.16 K/uL Monocytes # (Auto) 0.92 K/uL Eosinophils # (Auto) 0.03 K/uL Basophils # (Auto) 0.02 K/uL RDW Standard Deviation 47.9 fL RDW Coefficient of Variation 14.4 % Immature Granulocyte % (Auto) 5.8 % Immature Granulocyte # (Auto) 1.10 K/uL Toxic Vacuolation 1+ Sodium Level 133 mmol/L Potassium Level 3.6 mmol/L Chloride Level 99 mmol/L Carbon Dioxide Level 23 mmol/L Anion Gap 11.0 mmol/L Blood Urea Nitrogen 85 mg/dl Creatinine 2.79 mg/dl Est Creatinine Clear Calc Drug Dose 12.9 ml/min Estimated GFR () 17.9 Estimated GFR (Non- 15.5 BUN/Creatinine Ratio 30.6 Random Glucose 117 mg/dl Calcium Level 8.1 mg/dl Magnesium Level 2.4 mg/dl Pro-B-Type Natriuretic Peptide 41293 pg/ml Assessment & Plan ASSESSMENT AND PLAN: This is a 81-year-old female who presents with acute shortness of breath. ACUTE HYPOXIC RESPIRATORY FAILURE SECONDARY TO: BILATERAL, POSSIBLE COMMUNITY ACQUIRED PNEUMONIA BILATERAL PLEURAL EFFUSION - cultures blood: negative urine: negative MRSA nasal negative CT chest: 1. Moderate cardiomegaly with bilateral moderate sized pleural effusions and multifocal patchy groundglass and consolidative opacities seen primarily within the upper lobes with associated intralobular septal thickening suggests alveolar pulmonary edema with congestive heart failure. Superimposed pneumonia is also within the differential. Mild compressive bibasilar atelectasis. 2. Mediastinal and hilar adenopathy is nonspecific and appears generally stable from comparison study 11/22/2011. 3. Suspected soft tissue density lesion of the superior central breast measuring up to 1.3 cm as above could be correlated with mammography. - remains afebrile still on supplemental o2 by NC at 2 L clinically, improving daily - continue Cefepime + Levaquin IV Day 4 Nebs q6h Pulmonary Consulted: thoracentesis deferred for now may need O2 supplementation on discharge ACUTE ON CHRONIC CHF EXACERBATION DIASTOLIC TYPE, HISTORY OF NONISCHEMIC CARDIOMYOPATHY - echo: * -- Conclusions -- * Left ventricular systolic function is mildly reduced. * Ejection Fraction = 40-45%. * The left atrium is mildly dilated. * Aortic valve sclerosis moderate, without significant aortic valvular stenosis. * There is mild mitral regurgitation. * There is mild tricuspid regurgitation. * The estimated systolic PAP is 49mmHg. * Diastolic dysfunction, Grade II (pseudonormalization pattern). - Lasix 20mg IV additional given crea increased to 2.8--> 2.79 hold off on Lasix today Cardio and Nephro consulted, appreciate the recommendations Acute renal failure and chronic kidney disease stage IV. Baseline creatinine around 2, presents with creatinine of 2.4. Hold the Bumex. - management as noted above Mild elevation of troponin, most likely secondary to acute renal failure. - no chest pain troponins stable Hyponatremia with sodium of 126. Checking the sodium osmolality, urine osmolality and urine sodium, repeat the labs - Na improved to 133 , monitor Acute on chronic anemia of chronic kidney disease, CKD - Hemoglobin baseline between 8 to 9. Presents with hemoglobin of 7.7. - 2 units pRBC ordered Fe low,Iron supplement - Hg stable monitor Diabetes Type 2 - Lantus and ISS Hypertension. Continue Coreg, hydralazine and Imdur. - stable Peripheral vascular disease - continue ASA Deep venous thrombosis prophylaxis. Heparin q8h DISPOSITION pending PT/OT farhat lives with daughter anticipate d/c to either home or Rehab when medically stable Current Inpatient Medications: Current Inpatient Medications Medications (Trade) Dose Ordered Sig/Orestes Route Start Time Stop Time Status Last Admin Dose Admin Acetaminophen (Tylenol Tab) 650 mg Q4H PRN PO 05/24/17 03:00 06/23/17 02:59 Al Hydrox/Mg Hydrox/Simethicone (Maalox Max Susp) 15 ml Q4H PRN PO 05/24/17 03:00 06/23/17 02:59 Magnesium Hydroxide (Milk Of Magnesia Susp) 30 ml Q12H PRN PO 05/24/17 03:00 06/23/17 02:59 Ondansetron HCl (Zofran Inj) 4 mg Q6H PRN IV 05/24/17 03:00 06/23/17 02:59 Nitroglycerin (Nitrostat Tab) 0.4 mg UD PRN SL 05/24/17 03:00 06/23/17 02:59 Insulin Aspart (novoLOG ASPART) SLIDING SCALE G... ACHS SC 05/24/17 07:00 06/23/17 06:59 05/27/17 09:45 7 UNITS Calcitriol (Rocaltrol Cap) 0.25 mcg MoWeFr@0900 PO 05/25/17 09:00 06/24/17 08:59 05/25/17 08:30 0.25 MCG Carvedilol (Coreg Tab) 6.25 mg BID PO 05/24/17 09:00 06/23/17 08:59 05/27/17 09:37 6.25 MG Cholecalciferol (Vitamin D Tab) 1,000 inter.unit DAILY PO 05/24/17 09:00 06/23/17 08:59 05/27/17 09:38 1,000 INTER.UNIT Hydralazine HCl (Apresoline Tab) 100 mg TID PO 05/24/17 09:00 06/23/17 08:59 05/27/17 09:38 100 MG Isosorbide Mononitrate (Imdur Ext Rel Tab) 60 mg DAILY PO 05/24/17 09:00 06/23/17 08:59 05/27/17 09:39 60 MG Loratadine (Claritin Tab) 10 mg DAILY PRN PO 05/24/17 03:00 06/23/17 02:59 Simvastatin (Zocor Tab) 20 mg HS PO 05/24/17 21:00 06/23/17 20:59 05/26/17 21:10 20 MG Levofloxacin 500 mg/Prmx 150 ml @ 100 mls/hr Q2D@0100 IV 05/26/17 01:00 05/31/17 23:59 05/26/17 00:57 100 MLS/HR Albuterol/ Ipratropium (Duoneb) 3 ml Q4R PRN INH 05/24/17 03:15 06/23/17 03:14 Glucose (Glucose 40% Gel) 15-30 GRAMS 15 GRAMS... UD PRN PO 05/24/17 03:45 06/23/17 03:44 Glucose (Glucose Chew Tab) 4-8 Tablets 4 Tabl... UD PRN PO 05/24/17 03:45 06/23/17 03:44 Dextrose (Dextrose 50% 50ML Syringe) 25-50ML OF 50% DW IV FOR... UD PRN IV 05/24/17 03:45 06/23/17 03:44 Glucagon (Glucagon Inj) 1 mg UD PRN SQ 05/24/17 03:45 06/23/17 03:44 Cefepime HCl 2000 mg/Syringe 20 ml @ 5 mls/min DAILY@0500 IV 05/24/17 05:00 05/31/17 04:59 05/27/17 05:00 5 MLS/MIN Cefepime HCl (Consult) 1 ea UD PRN N/A 05/24/17 04:30 06/23/17 04:29 Levofloxacin (Consult) 1 ea UD PRN N/A 05/24/17 05:00 06/23/17 04:59 Ipratropium [place] (Atrovent 0.02% 0.5MG/2.5ML Neb) 0.5 mg Q6R INH 05/24/17 09:00 06/23/17 08:59 05/27/17 07:23 0.5 MG Levalbuterol (Xopenex 1.25MG/ 0.5ML Neb) 1.25 mg Q6R INH 05/24/17 09:00 06/23/17 08:59 05/27/17 07:23 1.25 MG Miscellaneous Information (Consult Glycemic Management Pharmacy) 1 ea UD PRN N/A 05/24/17 08:44 06/23/17 08:43 Ferrous Sulfate (Feosol Tab) 325 mg BIDM PO 05/24/17 16:45 06/23/17 16:44 05/27/17 09:39 325 MG Furosemide 20 mg/ Syringe 2 ml @ 4 mls/min DAILY IV 05/25/17 09:00 06/24/17 08:59 Future Hold Aspirin (Ecotrin Tab) 81 mg QAM PO 05/27/17 09:00 06/26/17 08:59 05/27/17 09:38 81 MG Heparin Sodium (Porcine) (Heparin Sq 5000 Unit/0.5ml) 5,000 unit Q8 SQ 05/26/17 14:00 06/25/17 13:59 05/27/17 05:59 5,000 UNIT Insulin Glargine (Lantus Solostar Pen) 10 units BID SC 05/27/17 09:00 06/26/17 08:59 05/27/17 09:46 10 UNITS
--- NOTE | 2017-05-27 13:37 | PULMONARY PROGRESS NOTE ---
DATE: 05/27/2017 TIME: 01:20 p.m. SUBJECTIVE: The patient had a chest x-ray done today. This shows significant improvement in the bilateral, mainly upper lung field infiltrates that were seen previously. They are approximately 90% clear compared with before. I believe the rapid clearing would suggest that the underlying problem was likely congestive heart failure rather than pneumonia. She had a ProBNP done today, which is 14,708. Although, it is severely elevated on May 24, it was greater than 35,000. I believe this significant improvement would likewise also suggest that she has underlying CHF as the culprit for her problems, even though it did not seem that she was overtly fluid overloaded. The case was discussed with Dr. Alcala. He states that the patient is doing very well. She is still on levofloxacin for possible pneumonia. I have no problem with that. He will continue that for a total of 7 days. Her respiratory status is, however, stable. We will be happy to see her again if requested.
[2017-05-27] MEDS: SIMVASTATIN 20 MG TAB PO SCH (21:10)
[2017-05-28] VITALS (10 sets, daily range): BP systolic 95–148; BP diastolic 56–75; PULSE 69–74; TEMP 36.7–36.9; O2SAT 94–99
[2017-05-28] MEDS: LEVOFLOXACIN / D5W 500 MG in PREMIXED IN D5W 150 ML IV SCH (00:26)
[2017-05-28] MEDS: IPRATROPIUM BROMIDE NEB SOLN 0.02% 2.5 ML VIAL INH SCH ×4 (02:03→19:59)
[2017-05-28] MEDS: LEVALBUTEROL 1.25MG/0.5ML NEB INH SCH ×4 (02:03→19:59)
[2017-05-28] MEDS: CEFEPIME IV 2,000 MG in SYRINGE 7.5 ML IV SCH (05:39)
[2017-05-28] MEDS: HEPARIN SOD 5000 UNIT/0.5 ML CARP SQ SCH ×3 (05:40→21:24)
[2017-05-28] MEDS: ASPIRIN 81 MG ECTAB PO SCH (07:53)
[2017-05-28] MEDS: CALCITRIOL 0.25 MCG CAP PO SCH (07:53)
[2017-05-28] MEDS: CARVEDILOL 6.25 MG TAB PO SCH ×2 (07:54→21:15)
[2017-05-28] MEDS: FERROUS SULFATE 325 MG TAB PO SCH ×2 (07:54→17:14)
[2017-05-28] MEDS: CHOLECALCIFEROL 1000 INTER.UNIT TAB PO SCH (07:54)
[2017-05-28] MEDS: ISOSORBIDE MONONITRATE 60 MG TABCR PO SCH (07:55)
[2017-05-28] MEDS: INSULIN GLARGINE SOLOSTAR 100 UNITS/ML 3 ML PEN SC SCH ×2 (07:57→21:16)
[2017-05-28] MEDS: INSULIN ASPART 100 UNITS/ML 3 ML PEN SC SCH ×4 (08:00→21:00)
[2017-05-28 08:46] LABS: BUN/CREATININE RATIO 28.1 (10-20); CALCIUM 8.3 mg/dl (8.5-10.1); CREATININE 2.93 mg/dl (0.60-1.20); POTASSIUM 3.9 mmol/L (3.5-5.1)
--- NOTE | 2017-05-28 08:58 | Nephrology Progress Note ---
Nephrology Progress Note Date of Service: May 28, 2017. Subjective 81 yo female with pneumonia/chf with ckd stage 4 at baseline with hyponatremia and serene. pt feels much better. still on oxygen and has a gusman catheter. oob to chair and wanting to go home today. Objective Date Time Temp Pulse Resp B/P (MAP) Pulse Ox O2 Delivery O2 Flow Rate FiO2 05/28/17 07:13 36.8 71 19 134/67 (89) 99 Room Air 05/28/17 07:07 74 16 96 Nasal Cannula 2.0 05/28/17 04:00 36.7 71 18 148/58 (88) 96 Nasal Cannula 2.0 05/28/17 04:00 Nasal Cannula 2.0 05/28/17 02:03 73 16 96 Nasal Cannula 2.0 05/28/17 00:00 Nasal Cannula 2.0 05/27/17 23:54 37.0 72 18 113/62 (79) 97 Nasal Cannula 2.0 05/27/17 20:00 Nasal Cannula 2.0 05/27/17 19:57 74 16 98 Nasal Cannula 2.0 05/27/17 19:24 36.9 75 22 116/54 (74) 94 Nasal Cannula 2.0 05/27/17 16:42 Nasal Cannula 2.0 05/27/17 15:14 37.0 51 18 135/51 (79) 93 Nasal Cannula 2.0 05/27/17 13:52 63 16 96 Nasal Cannula 2.0 05/27/17 12:00 Nasal Cannula 2.0 05/27/17 11:42 36.4 74 20 149/69 (95) 98 05/27/17 10:12 75 95 Physical Exam: General-[id number] Eyes-right eye blind ENT-mmm Neck-supple Lungs-rales at bases Heart-regular Abdomen-bs+ s/nt/nd Extremities-no edema Neuro-nonfocal Current Inpatient Medications Medications (Trade) Dose Ordered Sig/Orestes Route Start Time Stop Time Status Last Admin Dose Admin Acetaminophen (Tylenol Tab) 650 mg Q4H PRN PO 05/24/17 03:00 06/23/17 02:59 Al Hydrox/Mg Hydrox/Simethicone (Maalox Max Susp) 15 ml Q4H PRN PO 05/24/17 03:00 06/23/17 02:59 Magnesium Hydroxide (Milk Of Magnesia Susp) 30 ml Q12H PRN PO 05/24/17 03:00 06/23/17 02:59 Ondansetron HCl (Zofran Inj) 4 mg Q6H PRN IV 05/24/17 03:00 06/23/17 02:59 Nitroglycerin (Nitrostat Tab) 0.4 mg UD PRN SL 05/24/17 03:00 06/23/17 02:59 Insulin Aspart (novoLOG ASPART) SLIDING SCALE G... ACHS SC 05/24/17 07:00 06/23/17 06:59 05/28/17 08:00 8 UNITS Calcitriol (Rocaltrol Cap) 0.25 mcg MoWeFr@0900 PO 05/25/17 09:00 06/24/17 08:59 05/28/17 07:53 0.25 MCG Carvedilol (Coreg Tab) 6.25 mg BID PO 05/24/17 09:00 06/23/17 08:59 05/28/17 07:54 6.25 MG Cholecalciferol (Vitamin D Tab) 1,000 inter.unit DAILY PO 05/24/17 09:00 06/23/17 08:59 05/28/17 07:54 1,000 INTER.UNIT Hydralazine HCl (Apresoline Tab) 100 mg TID PO 05/24/17 09:00 06/23/17 08:59 05/28/17 07:54 100 MG Isosorbide Mononitrate (Imdur Ext Rel Tab) 60 mg DAILY PO 05/24/17 09:00 06/23/17 08:59 05/28/17 07:55 60 MG Loratadine (Claritin Tab) 10 mg DAILY PRN PO 05/24/17 03:00 06/23/17 02:59 Simvastatin (Zocor Tab) 20 mg HS PO 05/24/17 21:00 06/23/17 20:59 05/27/17 21:10 20 MG Levofloxacin 500 mg/Prmx 150 ml @ 100 mls/hr Q2D@0100 IV 05/26/17 01:00 05/31/17 23:59 05/28/17 00:26 100 MLS/HR Albuterol/ Ipratropium (Duoneb) 3 ml Q4R PRN INH 05/24/17 03:15 06/23/17 03:14 Glucose (Glucose 40% Gel) 15-30 GRAMS 15 GRAMS... UD PRN PO 05/24/17 03:45 06/23/17 03:44 Glucose (Glucose Chew Tab) 4-8 Tablets 4 Tabl... UD PRN PO 05/24/17 03:45 06/23/17 03:44 Dextrose (Dextrose 50% 50ML Syringe) 25-50ML OF 50% DW IV FOR... UD PRN IV 05/24/17 03:45 06/23/17 03:44 Glucagon (Glucagon Inj) 1 mg UD PRN SQ 05/24/17 03:45 06/23/17 03:44 Cefepime HCl 2000 mg/Syringe 20 ml @ 5 mls/min DAILY@0500 IV 05/24/17 05:00 05/31/17 04:59 05/28/17 05:39 5 MLS/MIN Cefepime HCl (Consult) 1 ea UD PRN N/A 05/24/17 04:30 06/23/17 04:29 Levofloxacin (Consult) 1 ea UD PRN N/A 05/24/17 05:00 06/23/17 04:59 Ipratropium [place] (Atrovent 0.02% 0.5MG/2.5ML Neb) 0.5 mg Q6R INH 05/24/17 09:00 06/23/17 08:59 05/28/17 07:06 0.5 MG Levalbuterol (Xopenex 1.25MG/ 0.5ML Neb) 1.25 mg Q6R INH 05/24/17 09:00 06/23/17 08:59 05/28/17 07:06 1.25 MG Miscellaneous Information (Consult Glycemic Management Pharmacy) 1 ea UD PRN N/A 05/24/17 08:44 06/23/17 08:43 Ferrous Sulfate (Feosol Tab) 325 mg BIDM PO 05/24/17 16:45 06/23/17 16:44 05/28/17 07:54 325 MG Furosemide 20 mg/ Syringe 2 ml @ 4 mls/min DAILY IV 05/25/17 09:00 06/24/17 08:59 Future Hold Aspirin (Ecotrin Tab) 81 mg QAM PO 05/27/17 09:00 06/26/17 08:59 05/28/17 07:53 81 MG Heparin Sodium (Porcine) (Heparin Sq 5000 Unit/0.5ml) 5,000 unit Q8 SQ 05/26/17 14:00 06/25/17 13:59 05/28/17 05:40 5,000 UNIT Insulin Glargine (Lantus Solostar Pen) 10 units BID SC 05/27/17 09:00 06/26/17 08:59 05/28/17 07:57 10 UNITS Last 24 Hours Test 05/27/17 11:25 05/27/17 16:01 05/27/17 20:12 05/28/17 06:24 Bedside Glucose 251 mg/dl 249 mg/dl 221 mg/dl 161 mg/dl Test 05/28/17 08:06 Sodium Level 132 mmol/L Potassium Level 3.9 mmol/L Chloride Level 100 mmol/L Carbon Dioxide Level 20 mmol/L Anion Gap 12.0 mmol/L Blood Urea Nitrogen 82 mg/dl Creatinine 2.93 mg/dl Est Creatinine Clear Calc Drug Dose 12.3 ml/min Estimated GFR () 16.9 Estimated GFR (Non- 14.6 BUN/Creatinine Ratio 28.1 Random Glucose 220 mg/dl Calcium Level 8.3 mg/dl Assessment & Plan serene on ckd stage 4-creatinine baseline around low 2s and now is 2.93. holding diuretics. pt looks and feels good. will remove gusman today. hyponatremia-sodium improved above 130. which is good. pt clinically improving. pulm: continues on antibiotics.
--- NOTE | 2017-05-28 13:02 | Pharmacy Progress Note ---
Glycemic Control Progress Note Date of Service May 28, 2017. Scope Glycemic Pharmacist consulted for glycemic control to write orders per [facility] inpatient glycemic control protocol. Objective Accuchecks BSG (last 24hrs): Test 05/27/17 16:01 05/27/17 20:12 05/28/17 06:24 05/28/17 08:06 Bedside Glucose 249 mg/dl (70-90) 221 mg/dl (70-90) 161 mg/dl (70-90) Random Glucose 220 mg/dl (70-99) Test 05/28/17 10:57 Bedside Glucose 216 mg/dl (70-90) HbA1c: Test 05/24/17 04:19 Hemoglobin A1c 5.9 % (4.5-5.6) H Recent Pertinent Medications The patient is currently receiving: * Basal insulin: Lantus 10 units every 12 hours * Correctional Insulin: Novolog Correction per scale ACHS Goal Range: Low 110 mg/dL - High 140 mg/dL Correction Factor: 25 mg/dL/unit * Prandial insulin: Per carb ratio of 1 unit per 8 grams CHO consumed * Oral Agents: On hold for admission Assessment & Plan ASSESSMENT: * See progress note from 05/24/17 for more background info, in short: * Pt receiving SQ basal bolus insulin regimen for hyperglycemia secondary to baseline DM (outpatient regimen on hold),stress/infection * Patient is currently receiving an average of 54 units of insulin per day with suboptimal control. * 20 units of basal insulin * 34 units of prandial/correctional insulin * BSGs over the past 24hrs: 216, 151, 221, 249, 251, 128 * Changes needed to insulin regimen: * AM Fasting BSG = 155 mg/dl. This is in goal range for patient based on inpatient targets and co-morbidities. No changes needed to basal insulin. * Post-prandial BSGs are elevated/BSGs rise throughout the day therefore need to tighten CF/CR PLAN FOR INPATIENT GLYCEMIC CONTROL: * Oral Agents * Continue to hold outpatient oral diabetes medications d/t high risk of hypo with sulfonylureas. * Basal insulin * Lantus 10 units SQ BID * Bolus insulin: tighten CR only, * NovoLog per scale ACHS or Q6hrs while NPO * Goal Range: Low 110 mg/dL - High 140 mg/dL * Correction Factor: 20 mg/dL/unit * Nutritional / Prandial insulin per carb ratio of 1 unit per 6 grams CHO consumed * Please note that the plan above was derived based on current level of insulin resistance and hospital stress. These recommendations are appropriate for inpatient admission only. Plan of care upon discharge will need to be reassessed to avoid potential outpatient hypo/hyperglycemia. Thank you.
--- NOTE | 2017-05-28 13:41 | Pulmonology Progress Note ---
Pulmonary Progress Note Date of Service May 28, 2017. Attending Dr. Oliveros Subjective Patient seen and examined at bedside. She is out of bed to chair. Feeling good today and would like to go home. She denies any chest pain, shortness of breath, dyspnea on exertion, or cough. She's been ambulating around the room without difficulty. Objective Vital signs reviewed. MAXIMUM TEMPERATURE 36.8, blood pressure 128/56 to 140/58 , pulse 71-74, respiratory rate 16-19, pulse oximetry 95-99% on 2 L nasal cannula. Ins and outs: -2400 mL Gen.: Awake alert oriented 3, no acute respiratory distress, speaking in full sentences without use of accessory respiratory muscle. CVS: S1, S2, regular rate and rhythm Lungs: Sporadic wheezes, no crackles. Good air entry otherwise. Abdomen: Soft, nontender, nondistended, bowel sounds positive Extremities: No edema bilaterally, no cyanosis, no clubbing. Labs reviewed. White blood cell count 92-03-02-21-19 Hemoglobin 10.2 Platelet 244 Sodium 132, potassium 3.9, carbon dioxide 20, BUN 20 creatinine 2.9. Medications reviewed. Cefepime 2 g daily IV (05/24/2017 to 05/28/2017) Levaquin 750 mg daily Assessment & Plan Hypoxemic respiratory failure-improving Bilateral pleural effusion Hilar and mediastinal adenopathy-unchanged Possible pneumonia Leukocytosis-improving Systolic Congestive heart failure Diastolic dysfunction-grade 2 Anemia of chronic disease Patient appears to be improving from a respiratory standpoint. There is also significant improvement in chest x-ray. She has been on diuretics as well as antibiotics. Due to the elevated BNP of greater than 35,000 on admission I suspect this is mostly secondary to CHF. She is diuresed about 2.5 L since admission however her creatinine has increased substantially. Bumex now on hold. At the current time I would continue to treat empirically for pneumonia for 7 days. She is transitioned from cefepime to Levaquin for which she can receive is discharged tomorrow. Continue with nebulizers every 4-6 hours and as needed. Titrate off oxygen if possible. Otherwise,two-step may be indicated. Data Medications: Current Inpatient Medications Medications (Trade) Dose Ordered Sig/Orestes Route Start Time Stop Time Status Last Admin Dose Admin Acetaminophen (Tylenol Tab) 650 mg Q4H PRN PO 05/24/17 03:00 06/23/17 02:59 Al Hydrox/Mg Hydrox/Simethicone (Maalox Max Susp) 15 ml Q4H PRN PO 05/24/17 03:00 06/23/17 02:59 Magnesium Hydroxide (Milk Of Magnesia Susp) 30 ml Q12H PRN PO 05/24/17 03:00 06/23/17 02:59 Ondansetron HCl (Zofran Inj) 4 mg Q6H PRN IV 05/24/17 03:00 06/23/17 02:59 Nitroglycerin (Nitrostat Tab) 0.4 mg UD PRN SL 05/24/17 03:00 06/23/17 02:59 Insulin Aspart (novoLOG ASPART) SLIDING SCALE G... ACHS SC 05/24/17 07:00 06/23/17 06:59 05/28/17 12:49 10 UNITS Calcitriol (Rocaltrol Cap) 0.25 mcg MoWeFr@0900 PO 05/25/17 09:00 06/24/17 08:59 05/28/17 07:53 0.25 MCG Carvedilol (Coreg Tab) 6.25 mg BID PO 05/24/17 09:00 06/23/17 08:59 05/28/17 07:54 6.25 MG Cholecalciferol (Vitamin D Tab) 1,000 inter.unit DAILY PO 05/24/17 09:00 06/23/17 08:59 05/28/17 07:54 1,000 INTER.UNIT Hydralazine HCl (Apresoline Tab) 100 mg TID PO 05/24/17 09:00 06/23/17 08:59 05/28/17 12:51 100 MG Isosorbide Mononitrate (Imdur Ext Rel Tab) 60 mg DAILY PO 05/24/17 09:00 06/23/17 08:59 05/28/17 07:55 60 MG Loratadine (Claritin Tab) 10 mg DAILY PRN PO 05/24/17 03:00 06/23/17 02:59 Simvastatin (Zocor Tab) 20 mg HS PO 05/24/17 21:00 06/23/17 20:59 05/27/17 21:10 20 MG Albuterol/ Ipratropium (Duoneb) 3 ml Q4R PRN INH 05/24/17 03:15 06/23/17 03:14 Glucose (Glucose 40% Gel) 15-30 GRAMS 15 GRAMS... UD PRN PO 05/24/17 03:45 06/23/17 03:44 Glucose (Glucose Chew Tab) 4-8 Tablets 4 Tabl... UD PRN PO 05/24/17 03:45 06/23/17 03:44 Dextrose (Dextrose 50% 50ML Syringe) 25-50ML OF 50% DW IV FOR... UD PRN IV 05/24/17 03:45 06/23/17 03:44 Glucagon (Glucagon Inj) 1 mg UD PRN SQ 05/24/17 03:45 06/23/17 03:44 Levofloxacin (Consult) 1 ea UD PRN N/A 05/24/17 05:00 06/23/17 04:59 Ipratropium [place] (Atrovent 0.02% 0.5MG/2.5ML Neb) 0.5 mg Q6R INH 05/24/17 09:00 06/23/17 08:59 05/28/17 07:06 0.5 MG Levalbuterol (Xopenex 1.25MG/ 0.5ML Neb) 1.25 mg Q6R INH 05/24/17 09:00 06/23/17 08:59 05/28/17 07:06 1.25 MG Miscellaneous Information (Consult Glycemic Management Pharmacy) 1 ea UD PRN N/A 05/24/17 08:44 06/23/17 08:43 Ferrous Sulfate (Feosol Tab) 325 mg BIDM PO 05/24/17 16:45 06/23/17 16:44 05/28/17 07:54 325 MG Furosemide 20 mg/ Syringe 2 ml @ 4 mls/min DAILY IV 05/25/17 09:00 06/24/17 08:59 Future Hold Aspirin (Ecotrin Tab) 81 mg QAM PO 05/27/17 09:00 06/26/17 08:59 05/28/17 07:53 81 MG Heparin Sodium (Porcine) (Heparin Sq 5000 Unit/0.5ml) 5,000 unit Q8 SQ 05/26/17 14:00 06/25/17 13:59 05/28/17 12:50 5,000 UNIT Insulin Glargine (Lantus Solostar Pen) 10 units BID SC 05/27/17 09:00 06/26/17 08:59 05/28/17 07:57 10 UNITS Levofloxacin (Levaquin Tab) 750 mg DAILY@11 PO 05/29/17 11:00 05/31/17 23:59 Vital Signs: Date Time Temp Pulse Resp B/P (MAP) Pulse Ox O2 Delivery O2 Flow Rate FiO2 05/28/17 11:55 36.7 71 18 128/56 (80) 95 Nasal Cannula 2.0 05/28/17 09:00 Nasal Cannula 2.0 05/28/17 07:13 36.8 71 19 134/67 (89) 99 Room Air 05/28/17 07:07 74 16 96 Nasal Cannula 2.0 05/28/17 04:00 36.7 71 18 148/58 (88) 96 Nasal Cannula 2.0 05/28/17 04:00 Nasal Cannula 2.0 05/28/17 02:03 73 16 96 Nasal Cannula 2.0 05/28/17 00:00 Nasal Cannula 2.0 05/27/17 23:54 37.0 72 18 113/62 (79) 97 Nasal Cannula 2.0 05/27/17 20:00 Nasal Cannula 2.0 05/27/17 19:57 74 16 98 Nasal Cannula 2.0 05/27/17 19:24 36.9 75 22 116/54 (74) 94 Nasal Cannula 2.0 05/27/17 16:42 Nasal Cannula 2.0 05/27/17 15:14 37.0 51 18 135/51 (79) 93 Nasal Cannula 2.0 05/27/17 13:52 63 16 96 Nasal Cannula 2.0 Laboratory Results: Last 24 Hours Test 05/27/17 16:01 05/27/17 20:12 05/28/17 06:24 05/28/17 08:06 Bedside Glucose 249 mg/dl 221 mg/dl 161 mg/dl Sodium Level 132 mmol/L Potassium Level 3.9 mmol/L Chloride Level 100 mmol/L Carbon Dioxide Level 20 mmol/L Anion Gap 12.0 mmol/L Blood Urea Nitrogen 82 mg/dl Creatinine 2.93 mg/dl Est Creatinine Clear Calc Drug Dose 12.3 ml/min Estimated GFR () 16.9 Estimated GFR (Non- 14.6 BUN/Creatinine Ratio 28.1 Random Glucose 220 mg/dl Calcium Level 8.3 mg/dl Test 05/28/17 10:57 Bedside Glucose 216 mg/dl
--- NOTE | 2017-05-28 14:01 | PROGRESS NOTE ---
DATE: 05/28/2017 CARDIOLOGY CONSULTATION FOLLOWUP NOTE The patient seen and examined. Chart, medications, telemetry reviewed. SUBJECTIVE: The patient continues to demonstrate significant improvement. Notes no worsening cough or shortness of breath. OBJECTIVE: VITAL SIGNS: Heart rate is 71, blood pressure is 128/56. NECK: Thin. There is no jugular venous distention. LUNGS: Revealed improved aeration to the bases. CARDIOVASCULAR: Regular. There is no S3 gallop. ABDOMEN: Soft, nontender. EXTREMITIES: Without cyanosis or clubbing. There is no peripheral edema. DATA: Sodium is 132, potassium is 3.9, chloride is 100, bicarbonate is 20, BUN is 82, and creatinine is 2.9. IMPRESSION: Mixed respiratory failure. Note - since admission, patient received 3 doses of furosemide 20 mg IV to those in association with 2 unit transfusion of packed red cells. She has received no additional diuretic since admission, though pulmonary status continues to improve. Suspect combination of diastolic heart failure as well as respiratory infection. Infectious bacterial versus viral, given elevated white cell count and presenting complaints. Creatinine is elevated, would continue to hold Bumex, but as noted only diuretics received since admission, 3 doses of furosemide 20 mg IV on first day of admission.
--- NOTE | 2017-05-28 16:18 | Progress Note ---
Medicine Progress Note Date & Time of Visit: May 28, 2017 at 16:17. Subjective patient seen resting in bed, comfortable watching TV states he continues to feel better breathing and cough improving no other symptoms Objective Last 8 Hrs Date Time Temp Pulse Resp B/P (MAP) Pulse Ox O2 Delivery O2 Flow Rate FiO2 05/28/17 15:15 36.9 69 18 126/58 (80) 94 Nasal Cannula 2.0 05/28/17 14:14 72 16 95 Nasal Cannula 2.0 05/28/17 11:55 36.7 71 18 128/56 (80) 95 Nasal Cannula 2.0 05/28/17 09:00 Nasal Cannula 2.0 Physical Exam: General- oriented x 3, not in distress, speaks in sentences with no effort Neck- no JVD Lungs- (+) mild crackles bilaterally , no wheezing Heart- regular rhythm; no murmur, normal rate Abdomen- normal bowel sounds, soft, nontender Extremities- no pretibial edema, no calf tenderness; peripheral pulses intact Neuro- alert, oriented x 3;no gross focal deficits Skin- warm & dry Laboratory Results: Last 24 Hours Test 05/27/17 20:12 05/28/17 06:24 05/28/17 08:06 05/28/17 10:57 Bedside Glucose 221 mg/dl 161 mg/dl 216 mg/dl Sodium Level 132 mmol/L Potassium Level 3.9 mmol/L Chloride Level 100 mmol/L Carbon Dioxide Level 20 mmol/L Anion Gap 12.0 mmol/L Blood Urea Nitrogen 82 mg/dl Creatinine 2.93 mg/dl Est Creatinine Clear Calc Drug Dose 12.3 ml/min Estimated GFR () 16.9 Estimated GFR (Non- 14.6 BUN/Creatinine Ratio 28.1 Random Glucose 220 mg/dl Calcium Level 8.3 mg/dl Test 05/28/17 15:48 Bedside Glucose 181 mg/dl Assessment & Plan ASSESSMENT AND PLAN: This is a 81-year-old female who presents with acute shortness of breath. ACUTE HYPOXIC RESPIRATORY FAILURE SECONDARY TO: BILATERAL, POSSIBLE COMMUNITY ACQUIRED PNEUMONIA BILATERAL PLEURAL EFFUSION - cultures blood: negative urine: negative MRSA nasal negative CT chest: 1. Moderate cardiomegaly with bilateral moderate sized pleural effusions and multifocal patchy groundglass and consolidative opacities seen primarily within the upper lobes with associated intralobular septal thickening suggests alveolar pulmonary edema with congestive heart failure. Superimposed pneumonia is also within the differential. Mild compressive bibasilar atelectasis. 2. Mediastinal and hilar adenopathy is nonspecific and appears generally stable from comparison study 11/22/2011. 3. Suspected soft tissue density lesion of the superior central breast measuring up to 1.3 cm as above could be correlated with mammography. - afebrile x few days still on supplemental o2 by NC at 2 L clinically, improving daily - continue Cefepime + Levaquin IV Day 12/27 Nebs q6h Pulmonary Consulted: thoracentesis deferred for now may need O2 supplementation on discharge, will need 2 step exercise test ACUTE ON CHRONIC CHF EXACERBATION DIASTOLIC TYPE, HISTORY OF NONISCHEMIC CARDIOMYOPATHY - echo: * -- Conclusions -- * Left ventricular systolic function is mildly reduced. * Ejection Fraction = 40-45%. * The left atrium is mildly dilated. * Aortic valve sclerosis moderate, without significant aortic valvular stenosis. * There is mild mitral regurgitation. * There is mild tricuspid regurgitation. * The estimated systolic PAP is 49mmHg. * Diastolic dysfunction, Grade II (pseudonormalization pattern). - Lasix 20mg IV additional given crea increased to 2.8--> 2.79--> 2.9 hold off on Lasix today Cardio and Nephro consulted, appreciate the recommendations Acute renal failure and chronic kidney disease stage IV. Baseline creatinine around 2, presents with creatinine of 2.4. Hold the Bumex. - management as noted above Mild elevation of troponin, most likely secondary to acute renal failure. - no chest pain troponins stable Hyponatremia with sodium of 126. Checking the sodium osmolality, urine osmolality and urine sodium, repeat the labs - Na improved to 133 , monitor Acute on chronic anemia of chronic kidney disease, CKD - Hemoglobin baseline between 8 to 9. Presents with hemoglobin of 7.7. - 2 units pRBC ordered Fe low,Iron supplement - Hg stable monitor Diabetes Type 2 - Lantus and ISS Hypertension. - Continue Coreg, hydralazine and Imdur. - stable Peripheral vascular disease - continue ASA Deep venous thrombosis prophylaxis. Heparin q8h DISPOSITION pending PT/OT farhat lives with daughter anticipate d/c home when medically stable, with possible 02 supplementation Current Inpatient Medications: Current Inpatient Medications Medications (Trade) Dose Ordered Sig/Orestes Route Start Time Stop Time Status Last Admin Dose Admin Acetaminophen (Tylenol Tab) 650 mg Q4H PRN PO 11/2/17 03:00 06/23/17 02:59 Al Hydrox/Mg Hydrox/Simethicone (Maalox Max Susp) 15 ml Q4H PRN PO 05/24/17 03:00 06/23/17 02:59 Magnesium Hydroxide (Milk Of Magnesia Susp) 30 ml Q12H PRN PO 05/24/17 03:00 06/23/17 02:59 Ondansetron HCl (Zofran Inj) 4 mg Q6H PRN IV 05/24/17 03:00 06/23/17 02:59 Nitroglycerin (Nitrostat Tab) 0.4 mg UD PRN SL 05/24/17 03:00 06/23/17 02:59 Insulin Aspart (novoLOG ASPART) SLIDING SCALE G... ACHS SC 05/24/17 07:00 06/23/17 06:59 05/28/17 12:49 10 UNITS Calcitriol (Rocaltrol Cap) 0.25 mcg MoWeFr@0900 PO 05/25/17 09:00 06/24/17 08:59 05/28/17 07:53 0.25 MCG Carvedilol (Coreg Tab) 6.25 mg BID PO 05/24/17 09:00 06/23/17 08:59 05/28/17 07:54 6.25 MG Cholecalciferol (Vitamin D Tab) 1,000 inter.unit DAILY PO 05/24/17 09:00 06/23/17 08:59 05/28/17 07:54 1,000 INTER.UNIT Hydralazine HCl (Apresoline Tab) 100 mg TID PO 05/24/17 09:00 06/23/17 08:59 05/28/17 12:51 100 MG Isosorbide Mononitrate (Imdur Ext Rel Tab) 60 mg DAILY PO 05/24/17 09:00 06/23/17 08:59 05/28/17 07:55 60 MG Loratadine (Claritin Tab) 10 mg DAILY PRN PO 05/24/17 03:00 06/23/17 02:59 Simvastatin (Zocor Tab) 20 mg HS PO 05/24/17 21:00 06/23/17 20:59 05/27/17 21:10 20 MG Albuterol/ Ipratropium (Duoneb) 3 ml Q4R PRN INH 05/24/17 03:15 06/23/17 03:14 Glucose (Glucose 40% Gel) 15-30 GRAMS 15 GRAMS... UD PRN PO 05/24/17 03:45 06/23/17 03:44 Glucose (Glucose Chew Tab) 4-8 Tablets 4 Tabl... UD PRN PO 05/24/17 03:45 06/23/17 03:44 Dextrose (Dextrose 50% 50ML Syringe) 25-50ML OF 50% DW IV FOR... UD PRN IV 05/24/17 03:45 06/23/17 03:44 Glucagon (Glucagon Inj) 1 mg UD PRN SQ 05/24/17 03:45 06/23/17 03:44 Levofloxacin (Consult) 1 ea UD PRN N/A 05/24/17 05:00 06/23/17 04:59 Ipratropium [place] (Atrovent 0.02% 0.5MG/2.5ML Neb) 0.5 mg Q6R INH 05/24/17 09:00 06/23/17 08:59 05/28/17 14:14 0.5 MG Levalbuterol (Xopenex 1.25MG/ 0.5ML Neb) 1.25 mg Q6R INH 05/24/17 09:00 06/23/17 08:59 05/28/17 14:14 1.25 MG Miscellaneous Information (Consult Glycemic Management Pharmacy) 1 ea UD PRN N/A 05/24/17 08:44 06/23/17 08:43 Ferrous Sulfate (Feosol Tab) 325 mg BIDM PO 05/24/17 16:45 06/23/17 16:44 05/28/17 07:54 325 MG Furosemide 20 mg/ Syringe 2 ml @ 4 mls/min DAILY IV 05/25/17 09:00 06/24/17 08:59 Future Hold Aspirin (Ecotrin Tab) 81 mg QAM PO 05/27/17 09:00 06/26/17 08:59 05/28/17 07:53 81 MG Heparin Sodium (Porcine) (Heparin Sq 5000 Unit/0.5ml) 5,000 unit Q8 SQ 05/26/17 14:00 06/25/17 13:59 05/28/17 12:50 5,000 UNIT Insulin Glargine (Lantus Solostar Pen) 10 units BID SC 05/27/17 09:00 06/26/17 08:59 05/28/17 07:57 10 UNITS Levofloxacin (Levaquin Tab) 750 mg DAILY@11 PO 05/29/17 11:00 05/31/17 23:59
[2017-05-28] MEDS: SIMVASTATIN 20 MG TAB PO SCH (21:15)
[2017-05-29] VITALS (8 sets, daily range): BP systolic 113–143; BP diastolic 56–76; PULSE 59–73; TEMP 36.5–36.8; O2SAT 93–97
[2017-05-29] MEDS: IPRATROPIUM BROMIDE NEB SOLN 0.02% 2.5 ML VIAL INH SCH ×3 (01:47→15:00)
[2017-05-29] MEDS: LEVALBUTEROL 1.25MG/0.5ML NEB INH SCH ×3 (01:47→15:00)
[2017-05-29] MEDS: HEPARIN SOD 5000 UNIT/0.5 ML CARP SQ SCH (06:00)
--- NOTE | 2017-05-29 07:14 | Nephrology Progress Note ---
Nephrology Progress Note Date of Service: May 29, 2017. Subjective 81 yo female with pneumonia/chf with ckd stage 4 at baseline with hyponatremia and serene. pt doing very well. pt anticipating going home today. had gusman catheter removed and no longer requiring oxygen. pt in a good mood and no complaints. Objective Date Time Temp Pulse Resp B/P (MAP) Pulse Ox O2 Delivery O2 Flow Rate FiO2 05/29/17 04:00 Nasal Cannula 2.0 96 05/29/17 03:48 36.8 69 18 113/61 (78) 96 Nasal Cannula 2.0 05/29/17 01:47 72 18 97 Nasal Cannula 2.0 05/29/17 00:11 36.7 73 17 143/69 (93) 96 Nasal Cannula 2.0 05/29/17 00:00 Nasal Cannula 2.0 97 05/28/17 21:13 72 139/67 (91) 05/28/17 20:00 Nasal Cannula 2.0 97 05/28/17 19:59 69 16 97 Nasal Cannula 2.0 05/28/17 19:14 36.8 72 19 95/75 (82) 97 Nasal Cannula 2.0 05/28/17 17:00 Nasal Cannula 2.0 05/28/17 15:15 36.9 69 18 126/58 (80) 94 Nasal Cannula 2.0 05/28/17 14:14 72 16 95 Nasal Cannula 2.0 05/28/17 13:00 Nasal Cannula 2.0 05/28/17 11:55 36.7 71 18 128/56 (80) 95 Nasal Cannula 2.0 05/28/17 09:00 Nasal Cannula 2.0 05/28/17 07:13 36.8 71 19 134/67 (89) 99 Room Air Physical Exam: [id number] Eyes-right eye blind ENT-mmm Neck-supple Lungs-decreased at bases Heart-rrr Abdomen-bs+ s/nt/nd Extremities-no edema Neuro-nonfocal Current Inpatient Medications Medications (Trade) Dose Ordered Sig/Orestes Route Start Time Stop Time Status Last Admin Dose Admin Acetaminophen (Tylenol Tab) 650 mg Q4H PRN PO 05/24/17 03:00 06/23/17 02:59 Al Hydrox/Mg Hydrox/Simethicone (Maalox Max Susp) 15 ml Q4H PRN PO 05/24/17 03:00 06/23/17 02:59 Magnesium Hydroxide (Milk Of Magnesia Susp) 30 ml Q12H PRN PO 05/24/17 03:00 06/23/17 02:59 Ondansetron HCl (Zofran Inj) 4 mg Q6H PRN IV 05/24/17 03:00 06/23/17 02:59 Nitroglycerin (Nitrostat Tab) 0.4 mg UD PRN SL 05/24/17 03:00 06/23/17 02:59 Insulin Aspart (novoLOG ASPART) SLIDING SCALE G... ACHS SC 05/24/17 07:00 06/23/17 06:59 05/28/17 17:14 10 UNITS Calcitriol (Rocaltrol Cap) 0.25 mcg MoWeFr@0900 PO 05/25/17 09:00 06/24/17 08:59 05/28/17 07:53 0.25 MCG Carvedilol (Coreg Tab) 6.25 mg BID PO 05/24/17 09:00 06/23/17 08:59 05/28/17 21:15 6.25 MG Cholecalciferol (Vitamin D Tab) 1,000 inter.unit DAILY PO 05/24/17 09:00 06/23/17 08:59 05/28/17 07:54 1,000 INTER.UNIT Hydralazine HCl (Apresoline Tab) 100 mg TID PO 05/24/17 09:00 06/23/17 08:59 05/28/17 21:15 100 MG Isosorbide Mononitrate (Imdur Ext Rel Tab) 60 mg DAILY PO 05/24/17 09:00 06/23/17 08:59 05/28/17 07:55 60 MG Loratadine (Claritin Tab) 10 mg DAILY PRN PO 05/24/17 03:00 06/23/17 02:59 Simvastatin (Zocor Tab) 20 mg HS PO 05/24/17 21:00 06/23/17 20:59 05/28/17 21:15 20 MG Albuterol/ Ipratropium (Duoneb) 3 ml Q4R PRN INH 05/24/17 03:15 06/23/17 03:14 Glucose (Glucose 40% Gel) 15-30 GRAMS 15 GRAMS... UD PRN PO 05/24/17 03:45 06/23/17 03:44 Glucose (Glucose Chew Tab) 4-8 Tablets 4 Tabl... UD PRN PO 05/24/17 03:45 06/23/17 03:44 Dextrose (Dextrose 50% 50ML Syringe) 25-50ML OF 50% DW IV FOR... UD PRN IV 05/24/17 03:45 06/23/17 03:44 Glucagon (Glucagon Inj) 1 mg UD PRN SQ 05/24/17 03:45 06/23/17 03:44 Levofloxacin (Consult) 1 ea UD PRN N/A 05/24/17 05:00 06/23/17 04:59 Ipratropium [place] (Atrovent 0.02% 0.5MG/2.5ML Neb) 0.5 mg Q6R INH 05/24/17 09:00 06/23/17 08:59 05/29/17 07:00 0.5 MG Levalbuterol (Xopenex 1.25MG/ 0.5ML Neb) 1.25 mg Q6R INH 05/24/17 09:00 06/23/17 08:59 05/29/17 07:00 1.25 MG Miscellaneous Information (Consult Glycemic Management Pharmacy) 1 ea UD PRN N/A 05/24/17 08:44 06/23/17 08:43 Ferrous Sulfate (Feosol Tab) 325 mg BIDM PO 05/24/17 16:45 06/23/17 16:44 05/28/17 17:14 325 MG Furosemide 20 mg/ Syringe 2 ml @ 4 mls/min DAILY IV 05/25/17 09:00 06/24/17 08:59 Future Hold Aspirin (Ecotrin Tab) 81 mg QAM PO 05/27/17 09:00 06/26/17 08:59 05/28/17 07:53 81 MG Heparin Sodium (Porcine) (Heparin Sq 5000 Unit/0.5ml) 5,000 unit Q8 SQ 05/26/17 14:00 06/25/17 13:59 05/28/17 21:24 5,000 UNIT Insulin Glargine (Lantus Solostar Pen) 10 units BID SC 05/27/17 09:00 06/26/17 08:59 05/28/17 21:16 10 UNITS Levofloxacin (Levaquin Tab) 750 mg DAILY@11 PO 05/29/17 11:00 05/31/17 23:59 Last 24 Hours Test 05/28/17 08:06 05/28/17 10:57 05/28/17 15:48 05/28/17 19:47 Sodium Level 132 mmol/L Potassium Level 3.9 mmol/L Chloride Level 100 mmol/L Carbon Dioxide Level 20 mmol/L Anion Gap 12.0 mmol/L Blood Urea Nitrogen 82 mg/dl Creatinine 2.93 mg/dl Est Creatinine Clear Calc Drug Dose 12.3 ml/min Estimated GFR () 16.9 Estimated GFR (Non- 14.6 BUN/Creatinine Ratio 28.1 Random Glucose 220 mg/dl Calcium Level 8.3 mg/dl Bedside Glucose 216 mg/dl 181 mg/dl 115 mg/dl Assessment & Plan serene on ckd stage 4-creatinine baseline around low 2s and now is 2.93. diuretics on hold. today's labs are pending. would send home on original diuretic dose of bumex one a day. hyponatremia-sodium improved above 130. follow sodium trend.
[2017-05-29] MEDS: INSULIN GLARGINE SOLOSTAR 100 UNITS/ML 3 ML PEN SC SCH (08:47)
[2017-05-29] MEDS: INSULIN ASPART 100 UNITS/ML 3 ML PEN SC SCH ×2 (08:48→12:07)
[2017-05-29] MEDS: ASPIRIN 81 MG ECTAB PO SCH (09:11)
[2017-05-29] MEDS: CHOLECALCIFEROL 1000 INTER.UNIT TAB PO SCH (09:11)
[2017-05-29] MEDS: CARVEDILOL 6.25 MG TAB PO SCH (09:11)
[2017-05-29] MEDS: ISOSORBIDE MONONITRATE 60 MG TABCR PO SCH (09:12)
[2017-05-29] MEDS: FERROUS SULFATE 325 MG TAB PO SCH (09:12)
[2017-05-29] MEDS ORDERED: LEVOFLOXACIN 750 MG TAB PO SCH (11:00)
[2017-05-29 11:06] LABS: BUN/CREATININE RATIO 27.6 (10-20); CALCIUM 8.4 mg/dl (8.5-10.1); CREATININE 2.76 mg/dl (0.60-1.20); POTASSIUM 4.8 mmol/L (3.5-5.1)
--- NOTE | 2017-05-29 14:38 | Progress Note ---
Medicine Progress Note Date & Time of Visit: May 29, 2017 at 14:26. Subjective seen resting in bed, in good spirits denies dyspnea, chest pain, cough no other symptoms states she is ready and would like to be discharged today Objective Last 8 Hrs Date Time Temp Pulse Resp B/P (MAP) Pulse Ox O2 Delivery O2 Flow Rate FiO2 05/29/17 12:59 Room Air 05/29/17 12:00 Room Air 05/29/17 11:04 36.7 60 19 132/59 (83) 94 Room Air 05/29/17 09:59 Room Air 94 05/29/17 08:00 Room Air 05/29/17 07:51 36.5 70 19 122/56 (78) 94 Room Air 05/29/17 07:02 59 18 93 Nasal Cannula 2.0 Physical Exam: General- oriented x 3, not in distress, speaks in sentences with no effort Neck- no JVD Lungs- mild rales left base, clear on the right, no wheeze Heart- regular rhythm; no murmur, normal rate Abdomen- normal bowel sounds, soft, nontender Extremities- no pretibial edema, no calf tenderness; peripheral pulses intact Neuro- alert, oriented x 3;no gross focal deficits Skin- warm & dry Laboratory Results: Last 24 Hours Test 05/28/17 15:48 05/28/17 19:47 05/29/17 06:32 05/29/17 10:37 Bedside Glucose 181 mg/dl 115 mg/dl 126 mg/dl Sodium Level 134 mmol/L Potassium Level 4.8 mmol/L Chloride Level 102 mmol/L Carbon Dioxide Level 22 mmol/L Anion Gap 10.0 mmol/L Blood Urea Nitrogen 76 mg/dl Creatinine 2.76 mg/dl Est Creatinine Clear Calc Drug Dose 13.1 ml/min Estimated GFR () 18.2 Estimated GFR (Non- 15.7 BUN/Creatinine Ratio 27.6 Random Glucose 191 mg/dl Calcium Level 8.4 mg/dl Test 05/29/17 11:13 Bedside Glucose 171 mg/dl Assessment & Plan ASSESSMENT AND PLAN: This is a 81-year-old female who presents with acute shortness of breath. ACUTE HYPOXIC RESPIRATORY FAILURE SECONDARY TO: BILATERAL, POSSIBLE COMMUNITY ACQUIRED PNEUMONIA BILATERAL PLEURAL EFFUSION - cultures blood: negative urine: negative MRSA nasal negative CT chest: 1. Moderate cardiomegaly with bilateral moderate sized pleural effusions and multifocal patchy groundglass and consolidative opacities seen primarily within the upper lobes with associated intralobular septal thickening suggests alveolar pulmonary edema with congestive heart failure. Superimposed pneumonia is also within the differential. Mild compressive bibasilar atelectasis. 2. Mediastinal and hilar adenopathy is nonspecific and appears generally stable from comparison study 11/22/2011. 3. Suspected soft tissue density lesion of the superior central breast measuring up to 1.3 cm as above could be correlated with mammography. - afebrile x few days weaned off oxygen by nasal cannula clinically improved - completed Cefepime 6 days and Levaquin IV Day 6/ Nebs q6h Pulmonary Consulted: thoracentesis deferred for now - needs 1 more day of Levaquin PO resume usual Bumex as per Nephro ACUTE ON CHRONIC CHF EXACERBATION DIASTOLIC TYPE, HISTORY OF NONISCHEMIC CARDIOMYOPATHY - echo: * -- Conclusions -- * Left ventricular systolic function is mildly reduced. * Ejection Fraction = 40-45%. * The left atrium is mildly dilated. * Aortic valve sclerosis moderate, without significant aortic valvular stenosis. * There is mild mitral regurgitation. * There is mild tricuspid regurgitation. * The estimated systolic PAP is 49mmHg. * Diastolic dysfunction, Grade II (pseudonormalization pattern). - given IV Lasix with good diuresis repeat CXR: pulmonary edema has improved markedly crea increased to 2.8--> 2.79--> 2.9--> improved to 2.[address] Chin/David and Nephro Dr. Negron consulted - recommend to continue usual Bumex daily Acute renal failure and chronic kidney disease stage IV. Baseline creatinine around 2, presents with creatinine of 2.4. Hold the Bumex. - management as noted above Mild elevation of troponin, most likely secondary to acute renal failure. - no chest pain troponins stable Hyponatremia with sodium of 126 - Na improved to 133 , monitor Acute on chronic anemia of chronic kidney disease, CKD - Hemoglobin baseline between 8 to 9. Presents with hemoglobin of 7.7. - 2 units pRBC transfused Fe low,Iron supplemented - Hg stable at ~10 monitor Hg Diabetes Type 2 - Lantus and ISS Hypertension. - Continue Coreg, hydralazine and Imdur. - stable Peripheral vascular disease - continue ASA Deep venous thrombosis prophylaxis. Heparin q8h given DISPOSITION d/c home ff up with PCP Dr. Alarcon on Friday 06/01 ff up with Cardiology and Nephrology in 2-3 weeks Current Inpatient Medications: Current Inpatient Medications Medications (Trade) Dose Ordered Sig/Orestes Route Start Time Stop Time Status Last Admin Dose Admin Acetaminophen (Tylenol Tab) 650 mg Q4H PRN PO 05/24/17 03:00 06/23/17 02:59 Al Hydrox/Mg Hydrox/Simethicone (Maalox Max Susp) 15 ml Q4H PRN PO 05/24/17 03:00 06/23/17 02:59 Magnesium Hydroxide (Milk Of Magnesia Susp) 30 ml Q12H PRN PO 05/24/17 03:00 06/23/17 02:59 Ondansetron HCl (Zofran Inj) 4 mg Q6H PRN IV 05/24/17 03:00 06/23/17 02:59 Nitroglycerin (Nitrostat Tab) 0.4 mg UD PRN SL 05/24/17 03:00 06/23/17 02:59 Insulin Aspart (novoLOG ASPART) SLIDING SCALE G... ACHS SC 05/24/17 07:00 06/23/17 06:59 05/29/17 12:07 7 UNITS Calcitriol (Rocaltrol Cap) 0.25 mcg MoWeFr@0900 PO 05/25/17 09:00 06/24/17 08:59 05/28/17 07:53 0.25 MCG Carvedilol (Coreg Tab) 6.25 mg BID PO 05/24/17 09:00 06/23/17 08:59 05/29/17 09:11 6.25 MG Cholecalciferol (Vitamin D Tab) 1,000 inter.unit DAILY PO 05/24/17 09:00 06/23/17 08:59 05/29/17 09:11 1,000 INTER.UNIT Hydralazine HCl (Apresoline Tab) 100 mg TID PO 05/24/17 09:00 06/23/17 08:59 05/29/17 14:12 100 MG Isosorbide Mononitrate (Imdur Ext Rel Tab) 60 mg DAILY PO 05/24/17 09:00 06/23/17 08:59 05/29/17 09:12 60 MG Loratadine (Claritin Tab) 10 mg DAILY PRN PO 05/24/17 03:00 06/23/17 02:59 Simvastatin (Zocor Tab) 20 mg HS PO 05/24/17 21:00 06/23/17 20:59 05/28/17 21:15 20 MG Albuterol/ Ipratropium (Duoneb) 3 ml Q4R PRN INH 05/24/17 03:15 06/23/17 03:14 Glucose (Glucose 40% Gel) 15-30 GRAMS 15 GRAMS... UD PRN PO 05/24/17 03:45 06/23/17 03:44 Glucose (Glucose Chew Tab) 4-8 Tablets 4 Tabl... UD PRN PO 05/24/17 03:45 06/23/17 03:44 Dextrose (Dextrose 50% 50ML Syringe) 25-50ML OF 50% DW IV FOR... UD PRN IV 05/24/17 03:45 06/23/17 03:44 Glucagon (Glucagon Inj) 1 mg UD PRN SQ 05/24/17 03:45 06/23/17 03:44 Levofloxacin (Consult) 1 ea UD PRN N/A 05/24/17 05:00 05/30/17 23:59 Ipratropium [place] (Atrovent 0.02% 0.5MG/2.5ML Neb) 0.5 mg Q6R INH 05/24/17 09:00 06/23/17 08:59 05/29/17 07:00 0.5 MG Levalbuterol (Xopenex 1.25MG/ 0.5ML Neb) 1.25 mg Q6R INH 05/24/17 09:00 06/23/17 08:59 05/29/17 07:00 1.25 MG Miscellaneous Information (Consult Glycemic Management Pharmacy) 1 ea UD PRN N/A 05/24/17 08:44 06/23/17 08:43 Ferrous Sulfate (Feosol Tab) 325 mg BIDM PO 05/24/17 16:45 06/23/17 16:44 05/29/17 09:12 325 MG Furosemide 20 mg/ Syringe 2 ml @ 4 mls/min DAILY IV 05/25/17 09:00 06/24/17 08:59 Future Hold Aspirin (Ecotrin Tab) 81 mg QAM PO 05/27/17 09:00 06/26/17 08:59 05/29/17 09:11 81 MG Heparin Sodium (Porcine) (Heparin Sq 5000 Unit/0.5ml) 5,000 unit Q8 SQ 05/26/17 14:00 06/25/17 13:59 05/28/17 21:24 5,000 UNIT Insulin Glargine (Lantus Solostar Pen) 10 units BID SC 05/27/17 09:00 06/26/17 08:59 05/29/17 08:47 10 UNITS Levofloxacin (Levaquin Tab) 500 mg Q2D@1100 PO 05/30/17 11:00 05/30/17 23:59
[2017-05-29] MEDS ORDERED: PRVHFAIN INH (14:43)
[2017-05-29] MEDS ORDERED: LVQ500 PO (14:43)
[2017-05-29] MEDS ORDERED: FRRS300 PO (14:43)
--- NOTE | 2017-05-29 14:47 | Discharge Instructions ---
Discharge Instructions Date of Service May 29, 2017. Admission Reason for Admission: Acute Respiratory Failure, Pneumonia Discharge Discharge Diagnosis / Problem: PNEUMONIA, CHF EXACERBATION Discharge Goals Goal(s): Diagnostic testing, Therapeutic intervention Activity Recommendations Activity Limitations: as noted below (NO HEAVY EXERTION UNTIL RE-EVALUATED BY PRIMARY CARE PHYSICIAN) Lifting Limitations: until after follow-up appointment Exercise/Sports Limitations: until after follow-up appointment . Instructions / Follow-Up Instructions / Follow-Up PLEASE REVIEW YOUR NEW MEDICATION LIST AND FOLLOW INSTRUCTIONS CAREFULLY. CALL YOUR PRIMARY CARE PHYSICIAN OR RETURN TO ER IMMEDIATELY IF WITH RECURRENCE OF SYMPTOMS, FEVER/CHILLS, INCREASING COUGH OR SHORTNESS OF BREATH, LEG SWELLING. FOLLOW UP WITH DR. DR. ALMANZAR (PRIMARY CARE PHYSICIAN) ON Sunday06/01/17 AT 10: 45 AM. Call your Primary Care doctor if any of the following symptoms or problems start or get worse: * Shortness of breath or difficulty breathing * Wake up at night short of breath * Chest pain * Cough * Swelling of your hands, feet, or legs * More fatigued or tired with your normal activity * Palpitations - sudden fast heart beats WEIGHT * Weigh yourself every morning after using the bathroom. * Use the same scale. * Wear the same amount of clothing. * Write your weight down on a chart. * Call your Primary Care doctor if you gain more than 2-3 pounds in 1-2 days. MEDICATIONS * Use this discharge instruction sheet for medication instructions. * Take your medications at the time your doctor ordered. * Do not skip a dose of your medicines. * If you miss a dose of medicine, take it as soon as possible, but DO NOT DOUBLE A DOSE. * Read your medicine information when you get home. * Know all of the side effects of your medicine. If in doubt, ask your pharmacist * Call your Primary Care doctor's office if you have any side effects. * Be sure all of your doctors know what medicine and herbs you take (including cold, flu, and herbal medicine). Take the following with you to your follow-up doctor appointments: * Weight Chart * Medication List * List of questions Do not drink excessive alcohol, beer or wine. Current Hospital Diet Patient's current hospital diet: AHA Diet (Heart Healthy), Diabetes Type 2 Diet Discharge Diet Recommended Diet: AHA Diet (Heart Healthy), Diabetes Type 2 Diet Fluid Restriction: 2000 ml (8 cups) Pending Studies Studies pending at discharge: no Laboratory Results Hemoglobin A1c Test 05/24/17 04:19 Range/Units Estimated Average Glucose 123 mg/dl Hemoglobin A1c 5.9 H 4.5-5.6 % Medical Emergencies . Who to Call and When: Call 911 or go to the Emergency Room if: * If at any time you feel your situation is an emergency * You have tightness or pain in your chest that does not go away with rest or Nitroglycerin * You are very short of breath even with rest . Non-Emergent Contact Non-Emergency issues call your: Primary Care Provider Call Non-Emergent contact if: you have a fever, you have any medication questions . . "Provider Documentation" section prepared by Aakash Alcala. . VTE Core Measure Inpt VTE Proph given/why not?: Unfractionated heparin SQ
--- NOTE | 2017-05-29 15:37 | Discharge Summary ---
Discharge Summary Date of Service May 29, 2017. Discharge Summary Admission Date: May 24, 2017 at 03:14 Discharge Date: May 29, 2017 Discharge Disposition: Home Principal Diagnosis: ACUTE HYPOXIC RESPIRATORY FAILURE SECONDARY TO: BILATERAL, POSSIBLE COMMUNITY ACQUIRED PNEUMONIA ACUTE CHF EXACERBATION, BILATERAL PLEURAL EFFUSION Secondary Diagnoses/Problems: Please refer to hospital course below. Procedures: CHEST ONE VIEW PORTABLE CLINICAL HISTORY: Shortness of breath. COMPARISON STUDY: Chest radiograph November 28, 2011. FINDINGS: There is no pneumothorax. There is a suspected small left pleural effusion with possible trace right pleural effusion. Moderate cardiomegaly is noted. There is diffuse interstitial thickening with dense bilateral upper lung airspace opacities which are relatively symmetric. There is also mild left lower lung airspace opacity. IMPRESSION: 1. Interstitial thickening with dense relatively symmetric bilateral upper lung airspace opacities. The findings favor alveolar pulmonary edema. However, bilateral pneumonia could appear similar. Radiographic follow up is recommended. 2. Suspected small left and trace right pleural effusions. (CHEST) THORAX WITHOUT CT DOSE: 301.66 mGy.cm CLINICAL HISTORY: 81 years-old Female with CONGESTION VS INFILTRATES. Acute shortness of breath with congestion. Follow-up study to assess multiple opacities TECHNIQUE: Multiaxial CT images of the chest were performed without contrast. A dose lowering technique was utilized adhering to the principles of ALARA. COMPARISON: Chest radiograph 05/24/2017, chest CT 11/22/2011. FINDINGS: Heterogeneity of the thyroid without dominant nodule. There are multiple enlarged mediastinal and hilar lymph nodes. AP window lymph node measures 2.1 x 1.6 cm, unchanged. Precarinal lymph node measures 2.2 x 1.6 cm, also unchanged. Large subcarinal lymph node measures 2.3 x 1.3 cm also appears similar in size from comparison. Heart is moderately enlarged with three-vessel distribution coronary arterial disease. There is moderate plaquing of the thoracic aorta without aneurysm identified. There is dilation of the main pulmonary artery, 3.1 cm suggesting pulmonary arterial hypertension. Moderate bilateral pleural effusions. Multifocal patchy consolidative and groundglass opacities are present bilaterally, greatest within the upper lobes and perihilar distribution. Fluid tracks along the fissures. Respiratory motion mildly limits evaluation of the lungs. Mild intralobular septal thickening is also noted within the upper lung zones.. Central airways are patent. Mild compressive atelectasis of the lower lobes. No acute mildly of the imaged upper abdomen. Vascular calcifications are seen within the upper abdomen. Asymmetric soft tissue density of the superior central left breast is seen, 1.3 x 1.3 cm on image 135 of series 4. The bones appear osteopenic. Multilevel endplate degenerative changes. IMPRESSION: 1. Moderate cardiomegaly with bilateral moderate sized pleural effusions and multifocal patchy groundglass and consolidative opacities seen primarily within the upper lobes with associated intralobular septal thickening suggests alveolar pulmonary edema with congestive heart failure. Superimposed pneumonia is also within the differential. Mild compressive bibasilar atelectasis. 2. Mediastinal and hilar adenopathy is nonspecific and appears generally stable from comparison study 11/22/2011. 3. Suspected soft tissue density lesion of the superior central breast measuring up to 1.3 cm as above could be correlated with mammography. Electronically signed by: Jaylen Nassar M.D. 05/25/2017 8:42 AM TWO VIEW CHEST CLINICAL HISTORY: Follow-up pneumonia. FINDINGS: AP and lateral chest radiographs are compared to study dated 05/24/2017 and correlated with chest CT dated 05/25/2017. The heart is enlarged and there is atherosclerotic calcification of the thoracic aorta. The pulmonary vasculature is noncongested. Patchy airspace opacities are again seen in the upper lobes. This has significantly cleared from 05/24/2013. Small pleural effusions persist. There is no pneumothorax. The skeletal structures are osteopenic. Degenerative change is noted throughout the spine. There are healed right-sided rib fractures. IMPRESSION: 1. Cardiomegaly without radiographic evidence of congestive failure. 2. There are patchy airspace opacities in the upper lobes. This has significantly cleared from 05/24/2017. Continued follow-up to complete resolution is recommended. 3. Small pleural effusions persist Electronically signed by: Christopher Morales M.D. 05/27/2017 9:19 AM Consultations: Pulmonary Dr. Garvin, Cardiology Dr. Hernandez, Nephrology Dr. Negron Pending Studies/Follow-Up: Please refer to hospital course below. Medication Reconciliation New Medications: Albuterol (Ventolin Hfa) 60 Puffs/5400 Mcg Aers 2 PUFF INH Q4H PRN for Shortness of Breath for 30 Days, #1 INHA 2 Refills Ferrous Sulfate (Ferrous Sulfate) 325 Mg Tab 325 MG PO BIDM for 30 Days, #60 TAB 2 Refills Levofloxacin (Levofloxacin) 500 Mg Tab 500 MG PO Q2D@1100 for 1 Day, #1 TAB take 1 tab on 05/30/17 Continued Medications: Aspirin (Aspirin Chewable) 81 Mg Chew 81 MG PO DAILY B-Complex W/ C-Min-Fe & Folic (Ferrocite Plus) 1 Tab Tab 324 MG PO DAILY Bumetanide (Bumex) 1 Mg Tab 1 MG PO DAILY, TAB Calcitriol (Rocaltrol Cap) 0.25 Mcg Cap 0.25 MCG PO 3XWK, CAP TAKE THIS MED EVERY SUNDAY/SUNDAY/SUNDAY. Carvedilol (Coreg) 6.25 Mg Tab 6.25 MG PO BID, TAB Cholecalciferol (Vitamin D3) 1,000 Unit Tab 1000 UNITS PO DAILY Glipizide (Glucotrol Xl) 2.5 Mg Tab 2.5 MG PO DAILY, TAB GIVE ONLY IF BLOOD SUGAR IS OVER 200. EAT FOOD WITH THIS MED. Hydralazine Hcl (Apresoline) 100 Mg Tab 100 MG PO TID, TAB Isosorbide Mononitrate (Imdur) 60 Mg Tab 60 MG PO DAILY Loratadine (Claritin) 10 Mg Tab 10 MG PO DAILY PRN for ALLERGIC REACTION, TAB Simvastatin (Zocor) 20 Mg Tab 20 MG PO HS, TAB Admission Information HPI (per Admitting provider): CHIEF COMPLAINT: Shortness of breath. HISTORY OF PRESENT ILLNESS: This is a 81-year-old female with past medical history significant for hyperlipidemia, nonischemic cardiomyopathy, peripheral artery disease, breast cancer, type 2 diabetes, anemia of chronic kidney disease, chronic kidney disease stage IV, hypertension, right eye blindness, was brought in with acute shortness of breath. The patient lives with her daughter. She was having some cough since yesterday bringing up some yellowish white phlegm, but today she complained of shortness of breath that progressively worsened later in night. She complained that she could not breathe and her chest hurts while breathing so she was brought into the hospital. In the ER, she required 3 litres of oxygen to keep her saturation above 90, afebrile, blood pressure is stable. Chest x-ray showed diffuse congestion versus infiltrate. The patient is very hard to hear. The patient lives with daughter. As per daughter, the patient was otherwise doing okay. She is ambulates in the house fine and she can climb the steps and down without any difficulty. No recent fever or chills. No complaints of headaches or blurred vision. No nausea, no vomiting, no abdominal pain. She had 1 episode of diarrhea on Sunday. Appetite is okay. Did not eat much today. No swelling in the legs. Currently, seems somewhat comfortable. Physical Exam (per Admitting): GENERAL: The patient is old and frail, somewhat mild respiratory distress. VITAL SIGNS: Temperature 36.4, pulse 77, respiratory rate 24, oxygen 92% on 3 liters. HEENT: No pallor, no icterus. Right eye blind. NECK: No JVD, no neck masses, no carotid bruits. CARDIOVASCULAR: S1, S2 heard. Regular rate and rhythm. No murmurs appreciated. RESPIRATORY SYSTEM: Bilateral rhonchi heard and bilateral wheezing heard. ABDOMEN: Soft, bowel sounds present. Nontender. No distention. No guarding or rigidity. CENTRAL NERVOUS SYSTEM: Cranial nerves II-XII grossly intact. Nonfocal. EXTREMITIES: Trace pedal edema present. No erythema seen. Hospital Course ASSESSMENT AND PLAN: This is a 81-year-old female who presents with acute shortness of breath. ACUTE HYPOXIC RESPIRATORY FAILURE SECONDARY TO: BILATERAL, POSSIBLE COMMUNITY ACQUIRED PNEUMONIA ACUTE CHF EXACERBATION, BILATERAL PLEURAL EFFUSION - cultures blood: negative urine: negative MRSA nasal negative CT chest: 1. Moderate cardiomegaly with bilateral moderate sized pleural effusions and multifocal patchy groundglass and consolidative opacities seen primarily within the upper lobes with associated intralobular septal thickening suggests alveolar pulmonary edema with congestive heart failure. Superimposed pneumonia is also within the differential. Mild compressive bibasilar atelectasis. 2. Mediastinal and hilar adenopathy is nonspecific and appears generally stable from comparison study 11/22/2011. 3. Suspected soft tissue density lesion of the superior central breast measuring up to 1.3 cm as above could be correlated with mammography. - afebrile x few days weaned off oxygen by nasal cannula clinically improved - completed Cefepime 6 days and Levaquin Day 6/7 Nebs q6h Pulmonary Consulted: thoracentesis deferred for now - needs 1 more day of Levaquin PO resume usual Bumex as per Nephro ACUTE ON CHRONIC CHF EXACERBATION DIASTOLIC TYPE, HISTORY OF NONISCHEMIC CARDIOMYOPATHY - echo: * -- Conclusions -- * Left ventricular systolic function is mildly reduced. * Ejection Fraction = 40-45%. * The left atrium is mildly dilated. * Aortic valve sclerosis moderate, without significant aortic valvular stenosis. * There is mild mitral regurgitation. * There is mild tricuspid regurgitation. * The estimated systolic PAP is 49mmHg. * Diastolic dysfunction, Grade II (pseudonormalization pattern). * - given IV Lasix with good diuresis repeat CXR: pulmonary edema has improved markedly crea increased to 2.8--> 2.79--> 2.9--> improved to 2.[address] Chin/David and Nephro Dr. Negron consulted - recommend to continue usual Bumex daily Acute renal failure and chronic kidney disease stage IV. - Baseline creatinine around 2 crea increased to 2.8--> 2.79--> 2.9--> improved to 2.[address] Negron consulted, recommend to continue usual Bumex daily dosing monitor crea closely Hyponatremia - admitted with sodium of 126 - Na improved to 133 , monitor Acute on chronic anemia of chronic kidney disease - Hemoglobin baseline between 8 to 9. Presents with hemoglobin of 7.7. - 2 units pRBC transfused Fe low,Iron supplemented - Hg stable at ~10 monitor Hg Diabetes Type 2 - Lantus and ISS Hypertension. - Continue Coreg, hydralazine and Imdur. - stable Peripheral vascular disease - continue ASA DISPOSITION d/c home ff up with PCP Dr. Almanzar on Friday 06/01 ff up with Cardiology and Nephrology in 2-3 weeks Total time spent on discharge = 40 minutes This includes examination of the patient, discharge planning, medication reconciliation, and communication with other providers. Discharge Instructions Discharge Instructions Date of Service May 29, 2017. Admission Reason for Admission: Acute Respiratory Failure, Pneumonia Discharge Discharge Diagnosis / Problem: PNEUMONIA, CHF EXACERBATION Discharge Goals Goal(s): Diagnostic testing, Therapeutic intervention Activity Recommendations Activity Limitations: as noted below (NO HEAVY EXERTION UNTIL RE-EVALUATED BY PRIMARY CARE PHYSICIAN) Lifting Limitations: until after follow-up appointment Exercise/Sports Limitations: until after follow-up appointment . Instructions / Follow-Up Instructions / Follow-Up PLEASE REVIEW YOUR NEW MEDICATION LIST AND FOLLOW INSTRUCTIONS CAREFULLY. CALL YOUR PRIMARY CARE PHYSICIAN OR RETURN TO ER IMMEDIATELY IF WITH RECURRENCE OF SYMPTOMS, FEVER/CHILLS, INCREASING COUGH OR SHORTNESS OF BREATH, LEG SWELLING. FOLLOW UP WITH DR. DR. ALMANZAR (PRIMARY CARE PHYSICIAN) ON Sunday06/01/17 AT 10: 45 AM. Call your Primary Care doctor if any of the following symptoms or problems start or get worse: * Shortness of breath or difficulty breathing * Wake up at night short of breath * Chest pain * Cough * Swelling of your hands, feet, or legs * More fatigued or tired with your normal activity * Palpitations - sudden fast heart beats WEIGHT * Weigh yourself every morning after using the bathroom. * Use the same scale. * Wear the same amount of clothing. * Write your weight down on a chart. * Call your Primary Care doctor if you gain more than 2-3 pounds in 1-2 days. MEDICATIONS * Use this discharge instruction sheet for medication instructions. * Take your medications at the time your doctor ordered. * Do not skip a dose of your medicines. * If you miss a dose of medicine, take it as soon as possible, but DO NOT DOUBLE A DOSE. * Read your medicine information when you get home. * Know all of the side effects of your medicine. If in doubt, ask your pharmacist * Call your Primary Care doctor's office if you have any side effects. * Be sure all of your doctors know what medicine and herbs you take (including cold, flu, and herbal medicine). Take the following with you to your follow-up doctor appointments: * Weight Chart * Medication List * List of questions Do not drink excessive alcohol, beer or wine. Current Hospital Diet Patient's current hospital diet: AHA Diet (Heart Healthy), Diabetes Type 2 Diet Discharge Diet Recommended Diet: AHA Diet (Heart Healthy), Diabetes Type 2 Diet Pending Studies Studies pending at discharge: no Laboratory Results Hemoglobin A1c Test 05/24/17 04:19 Range/Units Estimated Average Glucose 123 mg/dl Hemoglobin A1c 5.9 H 4.5-5.6 % Medical Emergencies . Who to Call and When: Call 911 or go to the Emergency Room if: * If at any time you feel your situation is an emergency * You have tightness or pain in your chest that does not go away with rest or Nitroglycerin * You are very short of breath even with rest . Non-Emergent Contact Non-Emergency issues call your: Primary Care Provider Call Non-Emergent contact if: you have a fever, you have any medication questions . . "Provider Documentation" section prepared by Aakash Alcala. . VTE Core Measure Inpt VTE Proph given/why not?: Unfractionated heparin SQ
[2017-05-30] MEDS ORDERED: LEVOFLOXACIN 500 MG TAB PO SCH (11:00)
== END 2017-05-29 16:45 | disposition home health service (06) | DRG 291 ==
LOC: EDBD 23:57 → C.EDA 23:58 → C.2T 05-24 03:14 → ENRESERV 05-24 03:23
PROVIDERS: ADMIT Internal Medicine; ATTEND Internal Medicine
DX: I13.0 Hypertensive heart and chronic kidney disease with heart failure and stage 1 through stage 4 chronic kidney disease, or unspecified chronic kidney disease (principal); I50.33 Acute on chronic diastolic (congestive) heart failure; J96.01 Acute respiratory failure with hypoxia; J18.9 Pneumonia, unspecified organism; N17.9 Acute kidney failure, unspecified; E87.1 Hypo-osmolality and hyponatremia; N18.4 Chronic kidney disease, stage 4 (severe); R74.8 Abnormal levels of other serum enzymes; I42.9 Cardiomyopathy, unspecified; E11.65 Type 2 diabetes mellitus with hyperglycemia; E11.22 Type 2 diabetes mellitus with diabetic chronic kidney disease; D63.8 Anemia in other chronic diseases classified elsewhere; D50.9 Iron deficiency anemia, unspecified; E78.5 Hyperlipidemia, unspecified; I25.10 Atherosclerotic heart disease of native coronary artery without angina pectoris; I44.7 Left bundle-branch block, unspecified; I35.1 Nonrheumatic aortic (valve) insufficiency; I65.23 Occlusion and stenosis of bilateral carotid arteries; I73.9 Peripheral vascular disease, unspecified; R59.0 Localized enlarged lymph nodes; H91.90 Unspecified hearing loss, unspecified ear; H54.61 Unqualified visual loss, right eye, normal vision left eye; I25.2 Old myocardial infarction; Z87.891 Personal history of nicotine dependence; Z79.82 Long term (current) use of aspirin; Z79.84 Long term (current) use of oral hypoglycemic drugs; Z79.891 Long term (current) use of opiate analgesic; Z79.899 Other long term (current) drug therapy

== ENCOUNTER 2018-08-09 11:18 | Inpatient (IN) ==
[2018-08-09] MEDS ORDERED: ACETAMINOPHEN 325 MG TAB PO PRN (12:34)
--- NOTE | 2018-08-09 13:17 | History & Physical Report ---
Date of Service August 09, 2018 Assessment & Plan (1) SOB (shortness of breath): (2) Acute on chronic systolic (congestive) heart failure: Pt with SOB, orthopnea, increased BLE edema since yesterday. No CP, fever or chills. Had scheduled echo today with Dr Zepeda who reported EF: 30%, abnormal septal motion consistent with LBBB, there is no noted inferior and inferolateral hypokinesis to akinesis sparing of the anterolateral segments. Severe LV systolic dysfunction is noted. Findings of a large left pleural effusion are also present. Vitals: 36.5C, BP: 145/74, R: 18, P: 76, 97% on RA. WBC: 6, Hgb: 8.1, BNP >35,000 CXR: Moderate pulmonary edema with bilateral pleural effusions. Bibasilar densities are nonspecific but favor atelectasis from the pleural effusions. -admit tele -Monitor I&O's, daily weights -low sodium diet -bumex 1mg IV -continue imdur, carvedilol, statin, ASA -cardiology consult, appreciate recommendations (3) Pleural effusion: CXR: Small right and moderate left pleural effusions have increased in size -if no improvement consider pulm or thoracic consultation (4) Elevated troponin: Troponin: 0.129 No CP hx troponin elevation of 0.17 in past -2016. EKG with T wave inversion inferior , lateral leads consistent with outpatient EKG from 06/2018 -likely secondary to chronic renal disease -trend troponin (5) LBBB (left bundle branch block): Chronic (6) CKD (chronic kidney disease), stage IV: Cr: 2.58. Was 2.9 on 07/18/18, 1.9 and 1.9-2.5 in 05/2017 -monitor renal functions -if worsening consider nephrology consult (7) Anemia in chronic kidney disease (CKD): Hgb: 8.1. Was 7.3 in 07/18/18 No acute bleeding -pt to start procrit soon -monitor H&H (8) Diabetes mellitus, type II: HA1c: 5.5 on 07/18/18 -hold glipizide -diabetic diet, monitor BSGs -novolog/lantus per protocol (9) HTN (hypertension): Stable -continue coreg, hyralazine (10) Dyslipidemia: -continue statin (11) Breast cancer: H/O left breast CA s/p partial mastectomy and radiation in 2011 DVT Prophylaxis -SCDs with anemia DNR/DNI as per discussion with pt and pt family Follows with Dr Sawyer for routine care Pt was seen with Dr Douglas. See addendum History of Present Illness Chief Complaint: SOB Primary Care Provider: Los Sawyer Pt is 82 y/o F with PMH DM II, HTN, chronic anemia of chronic kidney disease, dyslipidemia, chronic systolic heart failure, h/o nonischemic cardiomyopathy, LBBB, CKD IV, PAD, left breast CA s/p partial mastectomy and radiation in 2011 presented as direct admission from Dr. Zepeda office with complaint of shortness of breath. Patient states yesterday started feeling short of breath and fatigued. Had orthopnea. Also noticed increased edema to bilateral feet. Denies any cough or fever or chills. Patient had scheduled echo today with Dr. Zepeda and was found to have large left pleural effusion and an EF of 30% ( down from 40-45% on echo in 05/2017 with grade II diastolic dysfunction and EF of 55% on echo in 2015). Denies fever/chills, diaphoresis, N/V/D/C, SAGE, dizziness, syncope, vision changes, neck pain, CP, PND, palpitations, cough, sore throat, choking, otalgia, rhinorrhea, abdominal pain, paresthesias, extremity weakness, rashes, urinary symptoms. Pt with hx acute respiratory failure in 2011 requiring intubation with EF of 15% . Hx hosptialization 05/24/17-05/29/17 for pneumonia, CHF. Hx cardiac cath 11/2011: mild atherosclerotic CAD without significant artery stenosis Hx carotid duplex 12/2016: 50-69% stenosis bilateral ICA Hx receiving procrit in past, however hasn't for several years. Is currently being set up to start receiving procrit again. Allergies Allergy/AdvReac Type Severity Reaction Status Date / Time No Known Allergies Allergy Mild Verified 08/28/07 19:23 Home Medications Home Medications Medication Instructions Recorded Confirmed Type albuterol sulfate [Proventil HFA] 2 puff INHALATION QID PRN 08/09/18 08/09/18 History aspirin 81 mg PO DAILY 08/09/18 08/09/18 History bumetanide 1 mg PO DAILY 08/09/18 08/09/18 History calcitriol 0.25 mcg PO UD 08/09/18 08/09/18 History carvedilol 6.25 mg PO BID 08/09/18 08/09/18 History cholecalciferol (vitamin D3) 1,000 unit PO DAILY 08/09/18 08/09/18 History ferrous fumarate [Ferrocite] 1 tab PO DAILY 08/09/18 08/09/18 History glipizide 2.5 mg PO UD 08/09/18 08/09/18 History hydralazine 100 mg PO TID 08/09/18 08/09/18 History isosorbide mononitrate 60 mg PO DAILY 08/09/18 08/09/18 History simvastatin 20 mg PO HS 08/09/18 08/09/18 History Past Med/Surg History Medical History Breast cancer (Resolved) L breast cancer. S/P partial mastectomy, radiation in 2011 PAD (peripheral artery disease) (Chronic) LBBB (left bundle branch block) (Chronic) Nonischemic cardiomyopathy (Chronic) Chronic systolic CHF (congestive heart failure) (Chronic) Anemia in chronic kidney disease (CKD) (Chronic) CKD (chronic kidney disease), stage IV (Chronic) Dyslipidemia (Chronic) HTN (hypertension) (Chronic) Diabetes mellitus, type II (Chronic) Surgical History History of colonoscopy (Resolved) 2007 - hyperplastic polyps History of cataract surgery (Resolved) History of partial mastectomy of left breast (Resolved) 2011 History of cardiac catheterization (Resolved) 11/2011: mild atherosclerotic CAD without significant artery stenosis Family History Other CAD (coronary artery disease) Cancer Social History Current Living Situation: Family Current Living Situation Comment: lives with daughter Other Information That Helps Us Care for You: No Feels Safe at Home: Yes Safety Concerns: Feels Safe At This Time Smoking Status: Former smoker Cigarettes per Day: Quit 2006, Smoked for 50 years Hx Alcohol Use: No Hx Substance Use: No Beliefs That Will Affect Care: None Preferred Language: French Communication Ability: Effective Finished Hardware Erector Required: No Review of Systems All systems reviewed & are unremarkable except as noted in HPI & below Physical Exam 2 Vital Signs (Past 24 Hours): General: no acute distress, WDWN Head: normocephalic, atraumatic Eyes: conjunctiva non-injected, anicteric ENT: normal inspection external ears, nose, mucous membranes moist Neck: supple, trachea midline, non-tender Lungs: no respiratory distress, +rales bases bilaterally CV: RRR, 1+pitting pretibial edema Abd: normal BS, soft, non-tender Ext: no cyanosis, no calf tenderness Neuro: A&O x 3, no focal deficits noted, normal affect Skin: warm, dry Results & Data Laboratory Results Short CBC 08/09/18 Range/Units 13:04 WBC 6.88 (4.8-10.8) K/uL Hgb 8.1 L (12.0-16.0) g/dL Hct 24.4 L (37-47) % Plt Count 169 (130-400) K/uL BMP 08/09/18 13:04 Sodium 135 L Potassium 3.8 Chloride 103 Carbon Dioxide 22 BUN 52 H Creatinine 2.58 H Glucose 181 H Calcium 8.3 L Cardiac Enzymes 08/09/18 Range/Units 13:04 Troponin I 0.129 H* (0-0.045) ng/ml Liver Function 08/09/18 Range/Units 13:04 Total Bilirubin 0.7 (0.2-1) mg/dl AST 22 (15-37) U/L ALT 31 (12-78) U/L Alkaline Phosphatase 65 (45-117) U/L Albumin 3.6 (3.4-5.0) gm/dl Diagnostic Findings CXR: IMPRESSION: 1. Moderate pulmonary edema with bilateral pleural effusions. 2. Bibasilar densities are nonspecific but favor atelectasis from the pleural effusions. ECG Rhythm: sinus rhythm Findings: + 1st degree AV block and + LBBB Additional Comments: T wave inversion inferior, lateral EKG from 06/2018 outpatient reviewed: sinus rhythm with 1st degree block, LBBB, T wave inversions inferior, lateral leads Supervising Physician Co-Signing Physician Notes Attending addendum. The patient was seen and examined in telemetry unit He has been complaining of shortness of breath since last night He denies any swelling of the legs and her weight gain and denies any other symptoms He was sent in from cardiology clinic for continued management of CHF On examination Moderate shortness of breath at rest Hemodynamically stable Chest-decreased breath sounds at the bases with crackles more on the right and decreased breath sounds more on the left Heart-S1-S2 regular Abdomen-distended, soft, nontender and bowel sounds present Extremities- Trace to 1+ edema bilaterally GROUNDS CARETAKER-,aler awake and oriented x3 Admission labs EKG, and imaging studies reviewed Has acute CHF with bilateral pleural effusion more on the left than right Agree with assessment and plan as documented above by Mary Dominguez PA-C Intravenous diuretics Cardiology consulted Dr Chon Douglas
[2018-08-09 13:30] LABS: Basophils # (auto) 0.01 K/uL (0-0.2); Basophils % (auto) 0.1 %; Eosinophils # (auto) 0.01 K/uL (0-0.5); Eosinophils % (auto) 0.1 %; Hematocrit (blood only) 24.4 % (37-47); Hemoglobin 8.1 g/dL (12.0-16.0); Immature Granulocytes # (auto) 0.02 K/uL (0.00-0.02); Immature Granulocytes % (auto) 0.3 %; Lymphocytes % (auto) 10.2 %; Mean Corpuscular Hgb Conc 33.2 g/dL (32-36); Mean Platelet Volume 10.9 fL (7.4-10.4); Monocytes # (auto) 0.52 K/uL (0.11-0.59); Monocytes % (auto) 7.6 %; Neutrophils # (auto) 5.62 K/uL (1.4-6.5); Neutrophils % (auto) 81.7 %; Platelet Count 169 K/uL (130-400); RDW Coefficient of Variation 13.6 % (11.5-14.5); RDW Standard Deviation 49.6 fL (36.4-46.3); Red Blood Count 2.44 M/uL (4.2-5.4); White Blood Count 6.88 K/uL (4.8-10.8)
[2018-08-09 13:47] LABS: Alanine Aminotransferase 31 U/L (12-78); Albumin Level 3.6 gm/dl (3.4-5.0); Aspartate Aminotransferase 22 U/L (15-37); BUN Creatinine Ratio 20.2 (10-20); Blood Urea Nitrogen 52 mg/dl (7-18); Calcium 8.3 mg/dl (8.5-10.1); Carbon Dioxide 22 mmol/L (21-32); Chloride 103 mmol/L (98-107); Est GFR (African American) 19.6; Est GFR (Non-African American) 16.9; Glucose 181 mg/dl (70-99); Potassium 3.8 mmol/L (3.5-5.1); Sodium 135 mmol/L (136-145)
[2018-08-09] MEDS ORDERED: GLUCOSE 10 TABS/TUBE PO PRN (13:51)
[2018-08-09] MEDS ORDERED: CARBOHYDRATES FOR HYPOGLYCEMIA PO PRN (13:51)
[2018-08-09] MEDS ORDERED: GLUCOSE 40% GEL 15 GM TUBE PO PRN (13:51)
[2018-08-09] MEDS ORDERED: GLUCAGON FOR INJ 1 MG VIAL SQ PRN (13:51)
[2018-08-09] MEDS ORDERED: DEXTROSE 50% 50 ML SYRINGE IV PRN (13:51)
[2018-08-09 13:56] LABS: Alkaline Phosphatase 65 U/L (45-117); Bilirubin,Total 0.7 mg/dl (0.2-1); Globulin 3.4 gm/dl (2.5-4.0); INR 1.2 (0.9-1.1); NT Pro B Type Natriuretic Pept > 35000 pg/ml (0-1800); Troponin I 0.129 ng/ml (0-0.045)
[2018-08-09] MEDS ORDERED: PATIENT'S HEIGHT AND/OR WEIGHT NEEDED SCH (14:00)
[2018-08-09 14:02] LABS: RBC Morphology Unremarkable
--- NOTE | 2018-08-09 14:19 | XRay Report ---
XR chest 2V routine HISTORY: Short of breath. COMPARISON: Chest 05/27/2017. FINDINGS: Progressive perihilar and interstitial thickening consistent with moderate pulmonary edema. Small right and moderate left pleural effusions have increased in size. The heart is enlarged. There are bibasilar densities. No pneumothorax. IMPRESSION: 1. Moderate pulmonary edema with bilateral pleural effusions. 2. Bibasilar densities are nonspecific but favor atelectasis from the pleural effusions. Electronically signed by: Clayton Neal M.D. 08/09/2018 2:17 PM
[2018-08-09] MEDS ORDERED: BUMETANIDE 1 MG in SYRINGE 0 ML IV ONE (15:00)
[2018-08-09] MEDS: ISOSORBIDE MONO EXTENDED REL 60 MG TABCR PO SCH (16:08)
[2018-08-09] MEDS: INSULIN ASPART 100 UNITS/ML 3 ML PEN SC SCH ×2 (17:15→20:58)
[2018-08-09] MEDS: CARVEDILOL 6.25 MG TAB PO SCH (20:58)
[2018-08-09] MEDS: SIMVASTATIN 20 MG TAB PO SCH (20:58)
[2018-08-09] MEDS: HydrALAZINE TAB 50 MG TAB PO SCH (20:58)
[2018-08-09] MEDS: INSULIN GLARGINE SOLOSTAR 100 UNITS/ML 3 ML PEN SC SCH (21:00)
--- NOTE | 2018-08-09 21:16 | Ultrasound Report ---
ULTRASOUND OF THE PLEURAL SPACES CLINICAL HISTORY: Pleural effusion. COMPARISON STUDY: Chest x-ray dated 08/09/2018. FINDINGS: Real-time grayscale sonography of the pleural spaces is performed. There are moderate bilat eral pleural effusions with associated atelectasis. The effusion on the right has an estimated volume of 398 cc, and the effusion on the left has an estimated volume of 390 cc. The left pleural effusion was marked for bedside thoracentesis. IMPRESSION: Moderate bilateral pleural effusions as above. The left pleural effusion was marked for b edside thoracentesis. Electronically signed by: Christopher Morales M.D. 08/09/2018 9:14 PM
[2018-08-10] MEDS: INSULIN GLARGINE SOLOSTAR 100 UNITS/ML 3 ML PEN SC SCH ×2 (07:52→21:40)
[2018-08-10] MEDS: ISOSORBIDE MONO EXTENDED REL 60 MG TABCR PO SCH (07:53)
[2018-08-10] MEDS: CARVEDILOL 6.25 MG TAB PO SCH ×2 (07:53→20:09)
[2018-08-10] MEDS: FERROUS FUMARATE/ASCORBIC ACID 65 MG CAPCR PO SCH (07:53)
[2018-08-10] MEDS: INSULIN ASPART 100 UNITS/ML 3 ML PEN SC SCH ×4 (07:53→21:39)
[2018-08-10] MEDS: CHOLECALCIFEROL 1,000 UNITS TAB PO SCH (07:54)
[2018-08-10] MEDS: HydrALAZINE TAB 50 MG TAB PO SCH ×3 (07:54→20:10)
[2018-08-10] MEDS: ASPIRIN 81 MG ECTAB PO SCH (07:54)
[2018-08-10] MEDS: BUMETANIDE 1 MG in SYRINGE 0 ML IV SCH (08:44)
[2018-08-10 08:56] LABS: Hematocrit (blood only) 24.3 % (37-47); Hemoglobin 7.7 g/dL (12.0-16.0)
[2018-08-10 09:31] LABS: BUN Creatinine Ratio 19.3 (10-20); Creatinine Clr Calc Pharmacy 13.2 ml/min; Est GFR (African American) 18.7; Est GFR (Non-African American) 16.1; Potassium 3.5 mmol/L (3.5-5.1)
--- NOTE | 2018-08-10 12:12 | Cardiology Consultation ---
Date of Consultation August 10, 2018 Assessment & Plan (1) Acute on chronic systolic (congestive) heart failure: (2) LBBB (left bundle branch block): (3) CKD (chronic kidney disease), stage IV: (4) Anemia in chronic kidney disease (CKD): Patient with previously documented long-standing history of nonischemic cardiomyopathy in the setting of left bundle branch block diagnosed in 2011.Cardiac catheterization revealed no obstructive disease as a culprit of her LV dysfunction at that time. Ultimately with medical therapy her ejection fraction had normalized to 55% as of 2015, per my personal review of her images on file as an outpatient. She had been rehospitalized in May, with what was felt to be multifactorial shortness of breath with both pneumonia and congestive heart failure and her ejection fraction was in the range of 45%. She presented yesterday with progressive shortness of breath of several weeks duration, worse compared to a recent outpatient visit in late June 2018 when she was feeling relatively well. Echocardiogram revealed interval decline in her ejection fraction to the range of 30%, with new finding of right coronary artery territory hypokinesis to akinesis, abnormal septal motion consistent with left bundle branch block, and significant bilateral pleural effusions in the setting of stage IV chronic kidney disease and marketed anemia. Iron studies performed in June, revealed no evidence of iron deficiency. Patient received a dose of IV Bumex yesterday and again today. I would speculate that probably will be able to make much progress with diuretics based on her advanced kidney disease. The patient was therefore assessed by primary medicine and underwent left-sided thoracentesis earlier today. Her progress will be reassessed, consideration will be made toward possible right-sided thoracentesis as her hospital stay develops. Thoracentesis this morning yielded 900 mL of clear yellow fluid. Continue remaining cardiac medications including aspirin, carvedilol, simvastatin, isosorbide mononitrate, and hydralazine. As noted she is not a candidate for ANTON inhibitor or angiotensin receptor jose armando due to her significant renal insufficiency. Progress and plan discussed with the patient's daughter yesterday as an outpatient and again today in the hospital. History of Present Illness Attending Physician: Marquise Herman MD History of Present Illness Yoana Jj is an 82 year old female seen in cardiology consultation per the request of Dr Douglas for cardiology assistance with the management of congestive heart failure. The patient had most recently been seen in routine outpatient cardiology follow- up by Mr. Daniel of our practice on 07/18/18.At that time relatively stable cardiac signs and symptoms are noted.Routine blood work however did reveal abnormalities includingHemoglobin of 7.3, and creatinine of 2.9 mg/dL.Although her most recent outpatient creatinine in May 2017 had been 1.9, when she was hospitalized for pneumonia and congestive heart failure in May 2017, her creatinine was in the 2.4-2.87. The patient has been seen as an acute visit family practice yesterday morning complaint of vague chest discomfort that on further interview performed by the undersigned was more consistent with shortness of breath.The patient went on to have a transthoracic echocardiogram performed as an outpatient [facility] yesterday 08/09/18. Echocardiogram had previously been ordered at the time of her 07/18/18 visit.The echocardiogram revealed an interval decline in her ejection fraction compared to the 55% noted as an outpatient at [facility] in 2015, And compared to ejection fraction of 35% noted during hospital stay May 2017.H er ejection fraction is graded yesterday 08/09/18 was 30%. In addition to abnormal septal motion consistent with left bundle branch block, there is no noted inferior and inferolateral hypokinesis to akinesis sparing of the anterolateral segments. Severe LV systolic dysfunction is noted. Findings of a large left pleural effusion are also present, As well as a moderate to large right pleural effusion based on limited views on the echocardiogram. I personally interviewed the patient in the echocardiogram suite yesterday as an outpatient, and I arranged direct admission to the hospital for further treatment. She received a dose of IV diuretic yesterday with partial improvement in her symptoms, and this morning she underwent ultrasound-guided left-sided thoracentesis yielding 900 mL of clear yellow fluid. PAST MEDICAL / CARDIAC HISTORY: 1.Hospitalization to [facility] i November 2011 with acute hypoxic respiratory failure requiring intubation 2.Cardiac catheterization on 11/22/2011 revealed mild atherosclertoic CAD with no significant coronary artery stenoses, severe LV systolic dysfunction, markedly elevated LVEDP with significant lowering of the LVEDP with administration of nitroglycerin, and trace to 1+ AI. 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 9.Chronic anemia 10.Colonic polyps 11.Cataract extraction Allergies Allergy/AdvReac Type Severity Reaction Status Date / Time No Known Allergies Allergy Mild Verified 08/28/07 19:23 Home Medications Home Medications Medication Instructions Recorded Confirmed Type albuterol sulfate [Proventil HFA] 2 puff INHALATION QID PRN 08/09/18 08/09/18 History aspirin 81 mg PO DAILY 08/09/18 08/09/18 History bumetanide 1 mg PO DAILY 08/09/18 08/09/18 History calcitriol 0.25 mcg PO UD 08/09/18 08/09/18 History carvedilol 6.25 mg PO BID 08/09/18 08/09/18 History cholecalciferol (vitamin D3) 1,000 unit PO DAILY 08/09/18 08/09/18 History ferrous fumarate [Ferrocite] 1 tab PO DAILY 08/09/18 08/09/18 History glipizide 2.5 mg PO UD 08/09/18 08/09/18 History hydralazine 100 mg PO TID 08/09/18 08/09/18 History isosorbide mononitrate 60 mg PO DAILY 08/09/18 08/09/18 History simvastatin 20 mg PO HS 08/09/18 08/09/18 History Patient History Family History Other CAD (coronary artery disease) Cancer Social History Current Living Situation: Family Current Living Situation Comment: lives with daughter Other Information That Helps Us Care for You: No Feels Safe at Home: Yes Safety Concerns: Feels Safe At This Time Smoking Status: Former smoker Cigarettes per Day: Quit 2006, Smoked for 50 years Hx Alcohol Use: No Hx Substance Use: No Beliefs That Will Affect Care: None Preferred Language: Greenlandic Communication Ability: Effective [employer] Worker Required: No Review of Systems 10 point review systems is reviewed and is notable for pertinent findings as noted in HPI Physical Exam 2 Vital Signs (Past 24 Hours): Last Vital Signs Temp 36.8 C 08/10/18 08:27 Pulse 75 08/10/18 12:00 Resp 16 08/10/18 08:27 BP 126/71 08/10/18 12:00 Pulse Ox 99 08/10/18 12:00 Physical Exam: General: Frail, chronically ill in appearance Eyes: conjunctiva are pink and non-injected, sclera clear Neck: Elevated jugular venous pressure Chest: normal shape and normal respiratory effort Lungs: Decreased breath sounds bilaterally at the bases to mid lung fernandez Cardiac Exam: - regular heart sounds, regular 1/ systolic murmur Abdomen: abdomen soft, non-tender, no abnormal masses and no hepatosplenomegaly Musculoskeletal: no gait disturbance, no weakness Extremities: no edema and no cyanosis Neuro:awake, coversant, follows commands, no focal motor deficits Psych: appropriate affect and insight. Results & Data Diagnostic Findings EKG performed 08/10/18 and reviewed independently: Normal sinus rhythm at 80 bpm , first-degree AV block, left bundle branch block with resultant repolarization changes,QRS duration 158 ms Echocardiogram performed 08/09/18 as an outpatient at [facility] with images reviewed independently by the undersigned at the time of interpretation yesterday: Sinus rhythm with left bundle branch block was noted during the echocardiogram examination. The septal motion is abnormal consistent with left bundle branch block. Otherwise, there is a large sized apical, inferior, and inferolateral wall motion abnormality with hypokinesis to akinesis of the segments. The left atrium is moderately enlarged. The left ventricular systolic function is severely reduced. Qualitative LV ejection Fraction = 30%. The right ventricular chamber size and systolic function is normal. Mild mitral regurgitation is present. Mild tricuspid regurgitation is present. The left ventricular diastolic fillling pressure is elevated. Intermediate IVC size and collapsability. Moderate to severe pulmonary hypertension is present with estimated pulmonary artery systolic pressure of 60 millimeters Hg. Large bilateral pleural effusions are present. Compared to the images obtained at the time of the patient's prior outpatient echocardiogram performed at this facility on 11/03/2015, there has been a significant interval decline in the LV systolic dysfunction, and akinesis is now noted in the inferior and inferolateral segments suggestive of interval development of a right coronary artery territory scar.
--- NOTE | 2018-08-10 12:31 | Procedure Note ---
Procedure Note Date of Service August 10, 2018 Note INDICATION: Shortness of breath on admission, pleural fluid on Echo TIME OF PROCEDURE: 11:45am PROVIDER: Christopher Humphrey PA-C CONSENT: Obtained in writing by Dr. Abernathy prior to the procedure PROCEDURE SUMMARY: Bedside ultra sound was performed to identify an appropriate puncture site. Images were saved to the [employer] system. A time out was performed. The patient was prepped and draped in a sterile manner using chlorhexidine scrub after the appropriate level was confirmed by ultrasound. 8mLs of 1% lidocaine was used to numb the region. A finder needle was then used under negative pressure to locate fluid and instill lidocaine into the pleural space. A small incision was made with a #10 scalpel. A needle with overlying catheter was advanced using negative pressure on the syringe until a pleural flash was obtained. The thoracentesis catheter was then threaded without difficulty and without any bleeding. The patient had 900 mL of transudative appearing, straw colored fluid removed. The incision site was then covered with two Band-Aids with no evidence of bleeding. No immediate complications were noted during the procedure. Dr. Zepeda and Dr. Abernathy were contacted after the procedure with results. A post-procedure chest x-ray was completed and reviewed at bedside by this provider and no pneumothorax was identified. The patient tolerated the procedure well with no shortness of breath, no hypotension, no increase in heart rate, and no other acute symptoms.
[2018-08-10 12:49] LABS: LDH Pleural Fluid 59 IU; Total Protein Pleural Fluid 1.7 g/dl
[2018-08-10 13:13] LABS: Mononuclear WBC Pleural 68.4 %; Polynuclear WBC Pleural 31.6 %; RBC Pleural Fluid (A) < 3000 /uL; Source Pleural Fluid LEFT LUNG; WBC Pleural Fluid (A) 162 /uL
--- NOTE | 2018-08-10 13:33 | XRay Report ---
SINGLE VIEW CHEST CLINICAL HISTORY: Status post left thoracentesis. FINDINGS: An AP, portable, upright chest radiograph is compared to study dated 08/09/2018 and correlat ed with chest CT dated 05/25/2017. The examination is degraded by portable technique and patient rotat ion. The heart is enlarged and there is atherosclerotic calcification of the thoracic aorta. Pulmona ry vascular congestion persists. There are small right and trace left pleural effusions with bibasila r consolidation. No pneumothorax is seen. The skeletal structures are osteopenic. There are healed ri ght-sided rib fractures. 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 IMPRESSION: 1. No pneumothorax is identified post procedure. 2. Cardiomegaly with evidence of congestive failure. 3. Small right and trace left pleural effusions with bibasilar consolidation. The left pleural effusi on has significantly decreased in size from yesterday. Electronically signed by: Christopher Morales M.D. 08/10/2018 1:32 PM
--- NOTE | 2018-08-10 14:10 | Hospitalist Progress Note ---
Date of Service August 10, 2018 Assessment & Plan (1) SOB (shortness of breath): (2) Acute on chronic systolic (congestive) heart failure: Patient is an 82 yr female who presented with SOB, orthopnea, increased BLE edema --Recent outpatient ECHO showed: EF: 30%, abnormal septal motion consistent with LBBB, large sized apical, inferior, and inferolateral wall motion abnormality with hypokinesis to akinesis of the segments. --CXR: Moderate pulmonary edema with bilateral pleural effusions. Bibasilar densities are nonspecific but favor atelectasis from the pleural effusions. --S/O Thorocentesis on 08/10/18 --Continue Diuretics --Appreciate Cardiology Input --No ANTON/ARB 2/2 CKD --Monitor I&O's, daily weights --low sodium diet --continue imdur, carvedilol, statin, ASA (3) Pleural effusion: CXR: Small right and moderate left pleural effusions have increased in size Management as above (4) Elevated troponin: Mild Troponin elevation Denies chest pain H/O troponin elevation of 0.17 in past -2016. EKG with T wave inversion inferior, lateral leads consistent with outpatient EKG from 06/2018 In setting of CHF exacerbation, CKD (5) LBBB (left bundle branch block): Chronic (6) CKD (chronic kidney disease), stage IV: Cr: 2.58. Was 2.9 on 07/18/18, 1.9 and 1.9-2.5 in 05/2017 monitor renal functions while on IV diuretics Cr:2.5>>2.6 Avoid Nephrotoxic agents as able consider nephrology consult if renal function worsens (7) Anemia in chronic kidney disease (CKD): Hgb: 8.1. Was 7.3 in 07/18/18 No acute bleeding Patient to start procrit soon monitor H&H (8) Diabetes mellitus, type II: HA1c: 5.5 on 07/18/18 hold glipizide diabetic diet, monitor BSGs Continue ISS, lantus (9) HTN (hypertension): Stable continue coreg, hyralazine (10) Dyslipidemia: continue statin (11) Breast cancer: H/O left breast CA s/p partial mastectomy and radiation in 2011 DVT Px SCDs Re:anemia Code Status DNR/DNI Subjective Patient is seen and examined at bedside Had Thorocentesis earlier today Reports feeling well Denies chest pain, dyspnea, dizziness Offers no complaints Physical Exam 2 Vital Signs (Past 24 Hours): Last Vital Signs Temp 36.8 C 08/10/18 08:27 Pulse 75 08/10/18 12:00 Resp 16 08/10/18 08:27 BP 126/71 08/10/18 12:00 Pulse Ox 99 08/10/18 12:00 Physical Exam: Physical Exam: Vitals signs as noted above General Appearance:Frail, chronic ill appearing, no apparent distress Head: normocephalic, Atraumatic Eyes: normal inspection, EOMI, PERRL Neck: supple, Trachea midline Respiratory/Chest: Decreased breath sounds, faint basal rales Cardiovascular: S1, S2, +systolic murmur Abdomen/GI:Soft, Non tender, Bowel sounds present Extremities/Musculoskelatal:normal inspection, Trace edema Neurologic/Psych:AAOX3, grossly no focal neurological deficits Skin: normal color, warm Results & Data Laboratory Results Short CBC 08/10/18 Range/Units 08:40 Hgb 7.7 L (12.0-16.0) g/dL Hct 24.3 L (37-47) % BMP 08/10/18 08:40 Sodium 138 Potassium 3.5 Chloride 105 Carbon Dioxide 23 BUN 52 H Creatinine 2.68 H Glucose 150 H Calcium 8.0 L Cardiac Enzymes 08/09/18 08/10/18 Range/Units 19:13 00:37 Troponin I 0.116 H* 0.109 H* (0-0.045) ng/ml
[2018-08-10] MEDS: SIMVASTATIN 20 MG TAB PO SCH (20:10)
[2018-08-11 05:27] LABS: Hematocrit (blood only) 23.2 % (37-47); Hemoglobin 7.6 g/dL (12.0-16.0)
[2018-08-11 05:55] LABS: BUN Creatinine Ratio 20.1 (10-20); Calcium 7.9 mg/dl (8.5-10.1); Creatinine Clr Calc Pharmacy 12.6 ml/min; Est GFR (African American) 17.6; Est GFR (Non-African American) 15.2; Potassium 3.8 mmol/L (3.5-5.1)
[2018-08-11] MEDS: INSULIN ASPART 100 UNITS/ML 3 ML PEN SC SCH ×4 (08:18→20:39)
[2018-08-11] MEDS: INSULIN GLARGINE SOLOSTAR 100 UNITS/ML 3 ML PEN SC SCH ×2 (08:22→20:37)
[2018-08-11] MEDS: HydrALAZINE TAB 50 MG TAB PO SCH ×3 (08:23→19:25)
[2018-08-11] MEDS: BUMETANIDE 1 MG in SYRINGE 0 ML IV SCH (08:24)
[2018-08-11] MEDS: CARVEDILOL 6.25 MG TAB PO SCH ×2 (08:24→19:24)
[2018-08-11] MEDS: ASPIRIN 81 MG ECTAB PO SCH (08:24)
[2018-08-11] MEDS: CHOLECALCIFEROL 1,000 UNITS TAB PO SCH (08:24)
[2018-08-11] MEDS: FERROUS FUMARATE/ASCORBIC ACID 65 MG CAPCR PO SCH (08:24)
[2018-08-11] MEDS: ISOSORBIDE MONO EXTENDED REL 60 MG TABCR PO SCH (08:24)
--- NOTE | 2018-08-11 15:50 | Cardiology Progress Note ---
Date of Service August 11, 2018 Assessment & Plan (1) Acute on chronic systolic (congestive) heart failure: Patient with prior history of nonischemic cardiomyopathy, past history of mild LV systolic dysfunction, that had improved as of 2015, then mild LV systolic dysfunction noted May,, severe LV systolic dysfunction noted on recent echo. My initial impression on review of the echo was that she is perhaps had an RCA territory infarct, rather than this being progressive LV systolic dysfunction due to LV dyssynchrony. She is not a candidate for cardiac catheterization due to her renal insufficiency. Recommend optimization of medical therapy. She responded well to thoracentesis of 900 mL of straw-colored fluid on . I discussed the residual right pleural effusion with pulmonary, and will plan to observe that she appears improved. (2) CKD (chronic kidney disease), stage IV: Creatinine had been 2.76 at time of discharge on 05/29/17. Creatinine was 2.58 on admission is now 2.8. At present, will cautiously continue current dose of IV Bumex. (3) Anemia in chronic kidney disease (CKD): Patient's family notify me that nephrology had recommended Procrit as an outpatient. I reviewed her outpatient chart, she does have a prescription for Procrit 10,000 units to be injected subcutaneously every 14 days. We will attempt to start this as an inpatient. Subjective Chief complaint: Follow-up shortness of breath Subjective: Patient seen and examined. Family at the bedside including her daughter whom I met with the patient initially presented as an outpatient 2 days ago. She feels subjectively improved. Chest x-ray reveals improvement in the left pleural effusion post thoracentesis. Right lung also appears improved. Her creatinine has gone up a little bit, but her intake and output summary revealed that she diuresed 2 L yesterday and 600 mL so far today. No Oliveros catheter is in place. Telemetry reveals ongoing sinus rhythm with left bundle branch block. Physical Exam 2 Vital Signs (Past 24 Hours): Last Vital Signs Temp 36.5 C 08/11/18 11:54 Pulse 77 08/11/18 11:54 Resp 18 08/11/18 11:54 BP 124/63 08/11/18 11:54 Pulse Ox 96 08/11/18 11:54 Physical Exam: General: no acute distress and stated age Eyes: conjunctiva are pink and non-injected, sclera clear Neck: normal jugular venous pulse, no hepatojugular reflux Chest: normal shape and normal respiratory effort Lungs: Decreased breath sounds at the right base, use breath sounds the left base, however improved compared to prior to thoracentesis Cardiac Exam: - regular heart sounds, 1/6 systolic ejection murmur Abdomen: abdomen soft, non-tender, no abnormal masses and no hepatosplenomegaly Extremities: no edema and no cyanosis Neuro:awake, coversant, follows commands, no focal motor deficits Psych: appropriate affect and insight.
[2018-08-11] MEDS ORDERED: EPOETIN ALFA 10,000 UNITS/ML VIAL SQ SCH (16:00)
--- NOTE | 2018-08-11 18:12 | Hospitalist Progress Note ---
Date of Service August 11, 2018 Assessment & Plan (1) SOB (shortness of breath): (2) Acute on chronic systolic (congestive) heart failure: Patient is an 82 yr female who presented with SOB, orthopnea, increased BLE edema --Recent outpatient ECHO showed: EF: 30%, abnormal septal motion consistent with LBBB, large sized apical, inferior, and inferolateral wall motion abnormality with hypokinesis to akinesis of the segments. --CXR: Moderate pulmonary edema with bilateral pleural effusions. Bibasilar densities are nonspecific but favor atelectasis from the pleural effusions. --S/O Thorocentesis on 08/10/18: 900ml --Continue Diuretics --Appreciate Cardiology Input --No ANTON/ARB 2/2 CKD --Monitor I&O's, daily weights --low sodium diet --continue imdur, carvedilol, statin, ASA --Diuresing well --Subjectively feels well (3) Pleural effusion: CXR: Small right and moderate left pleural effusions have increased in size Management as above (4) Elevated troponin: Mild Troponin elevation Denies chest pain H/O troponin elevation of 0.17 in past -2016. EKG with T wave inversion inferior, lateral leads consistent with outpatient EKG from 06/2018 In setting of CHF exacerbation, CKD (5) LBBB (left bundle branch block): Chronic (6) CKD (chronic kidney disease), stage IV: Cr: 2.58. Was 2.9 on 07/18/18, 1.9 and 1.9-2.5 in 05/2017 monitor renal functions while on IV diuretics Cr:2.5>>2.6>>2.82 Avoid Nephrotoxic agents as able consider nephrology consult if renal function worsens (7) Anemia in chronic kidney disease (CKD): Hgb: 8.1. Was 7.3 on 07/18/18 No acute bleeding Started on procrit monitor H&H Hb:7.6 today (8) Diabetes mellitus, type II: HA1c: 5.5 on 07/18/18 hold glipizide diabetic diet, monitor BSGs Continue ISS, lantus (9) HTN (hypertension): Stable continue coreg, hyralazine (10) Dyslipidemia: continue statin (11) Breast cancer: H/O left breast CA s/p partial mastectomy and radiation in 2011 DVT Px SCDs Re:anemia Code Status DNR/DNI Disposition: PT/OT prior to discharge Subjective Patient is seen and examined at bedside She feels a lot better today " I am able to breathe better" Slept well overnight Diuresing well Had Thorocentesis yesterday Denies chest pain, dizziness, dyspnea Offers no complaints Physical Exam 2 Vital Signs (Past 24 Hours): Last Vital Signs Temp 36.5 C 08/11/18 11:54 Pulse 77 08/11/18 11:54 Resp 18 08/11/18 11:54 BP 124/63 08/11/18 11:54 Pulse Ox 96 08/11/18 11:54 Physical Exam: Physical Exam: Vitals signs as noted above General Appearance:Frail, chronic ill appearing, no apparent distress Head: normocephalic, Atraumatic Eyes: normal inspection, EOMI, PERRL Neck: supple, Trachea midline Respiratory/Chest: Decreased breath sounds, faint basal rales Cardiovascular: S1, S2, +systolic murmur Abdomen/GI:Soft, Non tender, Bowel sounds present Extremities/Musculoskelatal:normal inspection, Trace edema Neurologic/Psych:AAOX3, grossly no focal neurological deficits Skin: normal color, warm Results & Data Laboratory Results Short CBC 08/11/18 Range/Units 05:12 Hgb 7.6 L (12.0-16.0) g/dL Hct 23.2 L (37-47) % BMP 08/11/18 05:12 Sodium 138 Potassium 3.8 Chloride 106 Carbon Dioxide 26 BUN 57 H Creatinine 2.82 H Glucose 89 Calcium 7.9 L
[2018-08-11] MEDS: SIMVASTATIN 20 MG TAB PO SCH (19:25)
[2018-08-12 06:19] LABS: Hematocrit (blood only) 25.5 % (37-47); Hemoglobin 8.1 g/dL (12.0-16.0)
[2018-08-12 06:52] LABS: BUN Creatinine Ratio 19.2 (10-20); Calcium 7.9 mg/dl (8.5-10.1); Creatinine Clr Calc Pharmacy 12.9 ml/min; Est GFR (African American) 18.1; Est GFR (Non-African American) 15.6; Potassium 3.8 mmol/L (3.5-5.1)
[2018-08-12] MEDS: INSULIN ASPART 100 UNITS/ML 3 ML PEN SC SCH ×2 (07:55→11:49)
[2018-08-12] MEDS: INSULIN GLARGINE SOLOSTAR 100 UNITS/ML 3 ML PEN SC SCH (07:57)
[2018-08-12] MEDS: HydrALAZINE TAB 50 MG TAB PO SCH ×2 (08:00→13:50)
[2018-08-12] MEDS: ISOSORBIDE MONO EXTENDED REL 60 MG TABCR PO SCH (08:01)
[2018-08-12] MEDS: BUMETANIDE 1 MG in SYRINGE 0 ML IV SCH (08:01)
[2018-08-12] MEDS: FERROUS FUMARATE/ASCORBIC ACID 65 MG CAPCR PO SCH (08:01)
[2018-08-12] MEDS: CARVEDILOL 6.25 MG TAB PO SCH (08:01)
[2018-08-12] MEDS: ASPIRIN 81 MG ECTAB PO SCH (08:01)
[2018-08-12] MEDS: CHOLECALCIFEROL 1,000 UNITS TAB PO SCH (08:01)
[2018-08-12] MEDS ORDERED: CALCITRIOL 0.25 MCG CAPSULE PO SCH (09:00)
--- NOTE | 2018-08-12 10:03 | Cardiology Progress Note ---
Date of Service August 12, 2018 Supervising Physician Attestation: I have personally performed a history and physical examination on the patient. I agree with the physician professional nursing assistant's findings and plan as documented with the following additions. Subjective: Patient feels well. She notes shortness of breath and uneasiness in her chest that prompted admission has resolved. Exam: Mildly reduced breath sounds in bases bilaterally, improved compared to admission Data: Hemoglobin improved 8.1, creatinine improved to 2.75 compared to 2.82. Fluid balance -1.4 L yesterday. Assessment and Plan: Acute on chronic systolic heart failure, left greater than right pleural effusions for which patient underwent left thoracentesis. Stage IV chronic kidney disease -Discharge with medication plan as outlined below. [] Hunter Zepeda, DO Assessment & Plan (1) Acute on chronic systolic (congestive) heart failure: Patient with prior history of nonischemic cardiomyopathy, past history of mild LV systolic dysfunction, that had improved as of 2015, then mild LV systolic dysfunction noted May,, severe LV systolic dysfunction noted on recent echo. Initial impression on review of the echo was that she is perhaps had an RCA territory infarct, rather than this being progressive LV systolic dysfunction due to LV dyssynchrony. She is not a candidate for cardiac catheterization due to her renal insufficiency. Recommend optimization of medical therapy. She responded well to thoracentesis of 900 mL of straw-colored fluid on . SOB grealty improved. Recommend discharging on appropriate medical therapies including ASA, Bumex 1 mg , carvedilol, hydralazine, isosorbide, and simvastatin F/U with Cardiology and Pulmonology on discharge. (2) CKD (chronic kidney disease), stage IV: Creatinine had been 2.76 at time of discharge on 05/29/17. Creatinine stable this AM. (3) Anemia in chronic kidney disease (CKD): Hbg mildly improved continue Procrit. Subjective Chief complaint: Follow-up shortness of breath Subjective: Patient seen and examined. Patient reports she is feeling "great". Ambulating in hallway earlier without symptoms. Denies chest pain or SOB. No orthopnea, PND or edema. Requesting to go home today. Review of Systems All systems reviewed & are unremarkable except as noted in HPI & below Physical Exam 2 Vital Signs (Past 24 Hours): Last Vital Signs Temp 36.7 C 08/12/18 08:00 Pulse 67 08/12/18 08:00 Resp 18 08/12/18 08:00 BP 147/67 H 08/12/18 08:00 Pulse Ox 96 08/12/18 08:00 Constitutional: WD/WN, vitals as above + thin; no acute distress Respiratory: normal respiratory effort Auscultation: + diminished lung sounds (at bases, otherwise clear) Cardiovascular: Rate/Rhythm: regular rate and regular rhythm Heart Sounds: normal S1 and + murmur (II/ systolic murmur) Extremities: no edema Gastrointestinal (Abdomen): normal bowel sounds, soft, nontender, no hepatosplenomegaly
--- NOTE | 2018-08-12 12:09 | Hospitalist Progress Note ---
Date of Service August 12, 2018 Assessment & Plan (1) SOB (shortness of breath): (2) Acute on chronic systolic (congestive) heart failure: Patient is an 82 yr female who presented with SOB, orthopnea, increased BLE edema --Recent outpatient ECHO showed: EF: 30%, abnormal septal motion consistent with LBBB, large sized apical, inferior, and inferolateral wall motion abnormality with hypokinesis to akinesis of the segments. --CXR: Moderate pulmonary edema with bilateral pleural effusions. Bibasilar densities are nonspecific but favor atelectasis from the pleural effusions. --S/O Thorocentesis on 08/10/18: 900ml --Continue Diuretics --Appreciate Cardiology Input --No ANTON/ARB 2/2 CKD --Monitor I&O's, daily weights --low sodium diet --continue imdur, carvedilol, statin, ASA, Bumex, Hydralazine --Plan to discharge home today (3) Pleural effusion: CXR: Small right and moderate left pleural effusions have increased in size Management as above (4) Elevated troponin: Mild Troponin elevation Denies chest pain H/O troponin elevation of 0.17 in past -2016. EKG with T wave inversion inferior, lateral leads consistent with outpatient EKG from 06/2018 In setting of CHF exacerbation, CKD (5) LBBB (left bundle branch block): Chronic (6) CKD (chronic kidney disease), stage IV: Cr: 2.58. Was 2.9 on 07/18/18, 1.9 and 1.9-2.5 in 05/2017 monitor renal functions while on IV diuretics Cr:2.5>>2.6>>2.82>>2.75 Avoid Nephrotoxic agents as able (7) Anemia in chronic kidney disease (CKD): Hgb: 8.1. Was 7.3 on 07/18/18 No acute bleeding Received procrit monitor H&H Hb:8.1 today (8) Diabetes mellitus, type II: HA1c: 5.5 on 07/18/18 hold glipizide diabetic diet, monitor BSGs Continue ISS, lantus (9) HTN (hypertension): Stable continue coreg, hyralazine (10) Dyslipidemia: continue statin (11) Breast cancer: H/O left breast CA s/p partial mastectomy and radiation in 2011 DVT Px SCDs Re:anemia Code Status DNR/DNI Disposition: PT/OT Plan to discharge home today Subjective Patient is seen and examined at bedside Ambulated in hallway today without problems Prefers to be discharged home today Denies dyspnea Offers no other complaints Denies chest pain, dizziness, dyspnea Physical Exam 2 Vital Signs (Past 24 Hours): Last Vital Signs Temp 36.9 C 08/12/18 11:33 Pulse 71 08/12/18 11:33 Resp 16 08/12/18 11:33 BP 131/64 08/12/18 11:33 Pulse Ox 96 08/12/18 11:33 Physical Exam: Physical Exam: Vitals signs as noted above General Appearance:Frail, chronic ill appearing, no apparent distress Head: normocephalic, Atraumatic Eyes: normal inspection, EOMI, PERRL Neck: supple, Trachea midline Respiratory/Chest: Decreased breath sounds, CTA Cardiovascular: S1, S2, +systolic murmur Abdomen/GI:Soft, Non tender, Bowel sounds present Extremities/Musculoskelatal:normal inspection, Trace edema Neurologic/Psych:AAOX3, grossly no focal neurological deficits Skin: normal color, warm Results & Data Laboratory Results Short CBC 08/12/18 Range/Units 06:05 Hgb 8.1 L (12.0-16.0) g/dL Hct 25.5 L (37-47) % BMP 08/12/18 06:05 Sodium 138 Potassium 3.8 Chloride 105 Carbon Dioxide 23 BUN 53 H Creatinine 2.75 H Glucose 94 Calcium 7.9 L
--- NOTE | 2018-08-12 12:15 | Discharge Summary ---
Date of Service August 12, 2018 Admission HPI Per Admitting Provider Pt is 82 y/o F with PMH DM II, HTN, chronic anemia of chronic kidney disease, dyslipidemia, chronic systolic heart failure, h/o nonischemic cardiomyopathy, LBBB, CKD IV, PAD, left breast CA s/p partial mastectomy and radiation in 2011 presented as direct admission from Dr. Zepeda office with complaint of shortness of breath. Patient states yesterday started feeling short of breath and fatigued. Had orthopnea. Also noticed increased edema to bilateral feet. Denies any cough or fever or chills. Patient had scheduled echo today with Dr. Zepeda and was found to have large left pleural effusion and an EF of 30% ( down from 40-45% on echo in 05/2017 with grade II diastolic dysfunction and EF of 55% on echo in 2015). Denies fever/chills, diaphoresis, N/V/D/C, SAGE, dizziness, syncope, vision changes, neck pain, CP, PND, palpitations, cough, sore throat, choking, otalgia, rhinorrhea, abdominal pain, paresthesias, extremity weakness, rashes, urinary symptoms. Pt with hx acute respiratory failure in 2011 requiring intubation with EF of 15% . Hx hosptialization 05/24/17-05/29/17 for pneumonia, CHF. Hx cardiac cath 11/2011: mild atherosclerotic CAD without significant artery stenosis Hx carotid duplex 12/2016: 50-69% stenosis bilateral ICA Hx receiving procrit in past, however hasn't for several years. Is currently being set up to start receiving procrit again. Admission Exam Per Admitting Provider General: no acute distress, WDWN Head: normocephalic, atraumatic Eyes: conjunctiva non-injected, anicteric ENT: normal inspection external ears, nose, mucous membranes moist Neck: supple, trachea midline, non-tender Lungs: no respiratory distress, +rales bases bilaterally CV: RRR, 1+pitting pretibial edema Abd: normal BS, soft, non-tender Ext: no cyanosis, no calf tenderness Neuro: A&O x 3, no focal deficits noted, normal affect Skin: warm, dry Principal Diagnosis Discharge Information Discharge Diagnosis Acute on chronic systolic heart failure Pleural effusion S/P Thorocentesis Discharge Goals Decrease discomfort,Improve disease control, Improve function Discharge Activity Limitations Resume your previous activity Discharge Data Allergies Allergy/AdvReac Type Severity Reaction Status Date / Time No Known Allergies Allergy Mild Verified 08/28/07 19:23 Consultations 08/09/18 12:37 Consult Case Management - Discharge Planning Routine 08/09/18 13:47 Consult Cardiology Routine Procedures Performed CXR: 1. Moderate pulmonary edema with bilateral pleural effusions. 2. Bibasilar densities are nonspecific but favor atelectasis from the pleural effusions. Chest USD: Moderate bilateral pleural effusions as above. The left pleural effusion was marked for bedside thoracentesis. Ordered Studies 08/09/18 18:28 US effusion-chest/mediastinum Urgent 08/10/18 12:32 US point of care ultrasound Routine Hospital Course (1) SOB (shortness of breath): (2) Acute on chronic systolic (congestive) heart failure: Patient is an 82 yr female who presented with SOB, orthopnea, increased BLE edema --Recent outpatient ECHO showed: EF: 30%, abnormal septal motion consistent with LBBB, large sized apical, inferior, and inferolateral wall motion abnormality with hypokinesis to akinesis of the segments. --CXR: Moderate pulmonary edema with bilateral pleural effusions. Bibasilar densities are nonspecific but favor atelectasis from the pleural effusions. --S/O Thorocentesis on 08/10/18: 900ml --Continue Diuretics --Appreciate Cardiology Input --No ANTON/ARB 2/2 CKD --Monitor I&O's, daily weights --low sodium diet --continue imdur, carvedilol, statin, ASA, Bumex, Hydralazine --Plan to discharge home today (3) Pleural effusion: CXR: Small right and moderate left pleural effusions have increased in size Management as above (4) Elevated troponin: Mild Troponin elevation Denies chest pain H/O troponin elevation of 0.17 in past -2017. EKG with T wave inversion inferior, lateral leads consistent with outpatient EKG from 06/2018 In setting of CHF exacerbation, CKD (5) LBBB (left bundle branch block): Chronic (6) CKD (chronic kidney disease), stage IV: Cr: 2.58. Was 2.9 on 07/18/18, 1.9 and 1.9-2.5 in 05/2017 monitor renal functions while on IV diuretics Cr:2.5>>2.6>>2.82>>2.75 Avoid Nephrotoxic agents as able (7) Anemia in chronic kidney disease (CKD): Hgb: 8.1. Was 7.3 on 07/18/18 No acute bleeding Received procrit monitor H&H Hb:8.1 today (8) Diabetes mellitus, type II: HA1c: 5.5 on 07/18/18 hold glipizide diabetic diet, monitor BSGs Continue ISS, lantus (9) HTN (hypertension): Stable continue coreg, hyralazine (10) Dyslipidemia: continue statin (11) Breast cancer: H/O left breast CA s/p partial mastectomy and radiation in 2011 DVT Px SCDs Re:anemia Code Status DNR/DNI Disposition: PT/OT Plan to discharge home today Total Time Total Time Spent Total Time Spent (In Minutes): 42 minutes Total Time Includes: Examination of the Patient, Discharge Planning, Medication Reconciliation, Communication With Other Providers and Other Discharge Plan Discharge Items Patient Disposition: Home - Self-Care Reason For Visit: SOB, LEFT PLURAL EFFUSION Discharge Diagnosis: Acute on chronic systolic heart failure Pleural effusion S/P Thorocentesis Discharge Goals: Decrease discomfort, Improve disease control and Improve function Activity: Resume your previous activity Exercise/Sports: Gradually increase as tolerated Non-emergency contact: Primary Care Provider, [employer] Call non-emergency contact if: you have any medication questions, your symptoms worsen, your pain is not controlled, your pain is worsening, your pain is unusual for you, your pain is concerning for you and you have a fever Follow-up/Referrals: Los Sawyer [Primary Care Provider] - Diet: Carb Consistent or DM2 and Low Sodium (2gm) Addtl Provider Instructions: Follow up with your PCP on 08/15/18 at 10:25AM Follow up with your Supervisor [employer] Simón Diego PA-C on Aug 27, 2018 at 2:45pm Follow up with your Pulmnologist in 2-4 weeks Seek immediate medical attention if your symptoms reoccur or worsen Call your Primary Care doctor if any of the following symptoms or problems start or get worse: * Shortness of breath or difficulty breathing * Wake up at night short of breath * Chest pain * Cough * Swelling of your hands, feet, or legs * More fatigued or tired with your normal activity * Palpitations - sudden fast heart beats WEIGHT * Weigh yourself every morning after using the bathroom. * Use the same scale. * Wear the same amount of clothing. * Write your weight down on a chart. * Call your Primary Care doctor if you gain more than 2-3 pounds in 1-2 days. MEDICATIONS * Use this discharge instruction sheet for medication instructions. * Take your medications at the time your doctor ordered. * Do not skip a dose of your medicines. * If you miss a dose of medicine, take it as soon as possible, but DO NOT DOUBLE A DOSE. * Read your medicine information when you get home. * Know all of the side effects of your medicine. If in doubt, ask your pharmacist * Call your Primary Care doctor's office if you have any side effects. * Be sure all of your doctors know what medicine and herbs you take (including cold, flu, and herbal medicine). Take the following with you to your follow-up doctor appointments: * Weight Chart * Medication List * List of questions Do not drink excessive alcohol, beer or wine. Prescriptions: Continue aspirin 81 mg Tablet,Delayed Release (Dr/Ec) 81 mg PO DAILY RF: 0 bumetanide 1 mg Tablet 1 mg PO DAILY RF: 0 albuterol sulfate [Proventil HFA] 90 mcg/actuation Hfa Aerosol Inhaler 2 puff INHALATION QID PRN (Reason: Shortness Of Breath) RF: 0 calcitriol 0.25 mcg Capsule 0.25 mcg PO UD RF: 0 carvedilol 6.25 mg Tablet 6.25 mg PO BID RF: 0 isosorbide mononitrate 60 mg Tablet Extended Release 24 Hr 60 mg PO DAILY RF: 0 glipizide 2.5 mg Tablet Extended Release 24hr 2.5 mg PO UD RF: 0 hydralazine 100 mg Tablet 100 mg PO TID RF: 0 simvastatin 20 mg Tablet 20 mg PO HS RF: 0 cholecalciferol (vitamin D3) 1,000 unit Capsule 1,000 unit PO DAILY RF: 0 ferrous fumarate [Ferrocite] 324 mg (106 mg iron) Tablet 1 tab PO DAILY RF: 0 Visit Report Forms: My [facility] Portal Stand-Alone Forms: My [facility] Discharge Orders: Discharge Order (Routine); Ordered 08/12/18 Ordered By: Marquise K Vangala Admission Data Admit Date/Time: 08/09/18 11:49 Attending Provider: Marquise Herman Admit Provider: Segun Douglas Primary Care Provider: Los Sawyer Other Providers: Alfa Joaquin Manabendra Service: Telemetry Medical Other Interventions: Discharge Summary Assessment (RN) Last Done: 08/12/18 13:19 Pending Studies at Discharge: No DC Date/Time DO NOT enter until pt leaves facility: 08/12/18 14:40
== END 2018-08-12 14:40 | disposition home or self-care (01) | DRG 291 ==
LOC: 2S 11:49 → SUATTDRO 11:49